=== PATIENT | female | born 1950 | race Caucasian/White ===

== ENCOUNTER → 2018-02-24 13:10 | Outpatient (CLI) | payer MEDICARE, SELFPAY ==
--- NOTE | 2018-02-24 13:25 | US_ITS ---
US chest CLINICAL INDICATION: Palpable abnormality in the right chest ITS.REASON: NEOPLASM OF CHEST WALL ORDERING PHYSICIAN: Oscar Koehler MD PATIENT AGE: 68 years Comparison: None FINDINGS: There is a heterogeneous lentiform area of mixed echogenicity corresponding to the palpable abnormality inferior to the right lower border of the scapula. This is in the subcutaneous soft tissues and measures 3 x 0.6 cm consistent with a lipoma. No other significant anomalies are evident. No abscess or other significant anomalies IMPRESSION: The findings are suggestive of a lipoma inferior to the right scapula. This could be confirmed with CT if clinically warranted
== END ==
PROVIDERS: Family Provider Family Medicine; PCP Family Medicine; Visit Provider Family Medicine
DX: D48.7 Neoplasm of uncertain behavior of other specified sites (principal)
CPT/HCPCS: 76604

== ENCOUNTER → 2018-05-12 08:48 | Outpatient (CLI) | payer MEDICARE, SELFPAY ==
--- NOTE | 2018-05-12 08:50 | MM_ITS ---
MM Dig screening mamm BI w/CAD CAD Screening COMPARISON: None, patient had previous mammograms but does not know where they were performed INDICATION: There is no personal or family history of breast cancer TECHNIQUE: Standard CC and MLO images were obtained. R2 CAD reviewed. FINDINGS: There is a diffusely dense and heterogenic parenchymal pattern lessening the sensitivity of mammography. There are areas of increased density in the central portions of both breast best appreciated on the MLO projections. These likely are summation shadows however since are no previous studies for comparison recommend patient return for spot compression views of the central portions of each breast in both MLO and CC projection. Ultrasound may be necessary as well. There are few benign-appearing calcifications in the right breast. There are no suspicious microcalcifications. IMPRESSION: Dense and heterogenic parenchymal pattern with possible asymmetric densities versus summation shadows in each breast BI-RADS Category: 0 Need Additional Imaging Evaluation RECOMMENDED FOLLOW-UP: IMM - IMMEDIATE FOLLOW-UP RECOMMENDED (A letter has been sent to the patient regarding results of the study.)
== END ==
PROVIDERS: PCP Family Medicine; Visit Provider Family Medicine
DX: Z12.31 Encounter for screening mammogram for malignant neoplasm of breast (principal)
CPT/HCPCS: 77067

== ENCOUNTER → 2018-05-27 11:53 | Outpatient (CLI) | payer MEDICARE, SELFPAY ==
--- NOTE | 2018-05-27 | US_ITS ---
MM Dig mamm BI DX w/CAD, US breast RT complete, US breast LT complete INDICATION: Follow-up abnormal mammogram ORDERING PHYSICIAN: Oscar Koehler MD PATIENT AGE: 68 years COMPARISON: 05/12/2018 TECHNIQUE: Problem-solving views along with bilateral breast ultrasound FINDINGS: There is very dense fibroglandular tissue which decreases sensitivity of mammography. Scattered areas of asymmetric density are noted in both breasts. No malignant appearing mass or malignant appearing microcalcification is evident. Right breast ultrasound: There is 5 mm cyst on the nipple. Echodense fibroglandular tissue noted in the remaining breast. Left breast ultrasound: Echodense tissue noted with no cystic or solid lesions demonstrated IMPRESSION: No convincing evidence of malignancy. Diffuse bilateral dense asymmetric fibroglandular tissue present which could obscure underlying lesions. Therefore, correlation with physical exam is extremely important. Also suggest 6 month follow-up to confirm baseline BI-RADS Category: 3 Probably Benign Finding Short Term Follow-up RECOMMENDED FOLLOW-UP: 6M - 6 MONTH FOLLOW-UP (A letter has been sent to the patient regarding results of the study.)
== END ==
PROVIDERS: PCP Family Medicine; Visit Provider Family Medicine
DX: R92.8 Other abnormal and inconclusive findings on diagnostic imaging of breast (principal)
CPT/HCPCS: 76641; 77066

== ENCOUNTER → 2018-12-02 12:27 | Outpatient (CLI) | payer MEDICARE, SELFPAY ==
--- NOTE | 2018-12-02 13:00 | MM_ITS ---
MM Dig mamm BI DX w/CAD, US breast RT complete, US breast LT complete INDICATION: 6 month follow-up abnormal mammogram an ultrasound ORDERING PHYSICIAN: Oscar Koehler MD PATIENT AGE: 68 years COMPARISON: 05/27/2018, 05/12/2018 TECHNIQUE: Standard images performed along with spot compression views and bilateral breast ultrasound. FINDINGS: There is extremely dense breast tissue bilaterally which decreases sensitivity of mammography. Correlation with physical exam therefore of paramount importance. Right breast: Scattered areas of asymmetric density once again noted. No malignant appearing mass or malignant appearing microcalcification. Benign-appearing 7 mm nodular opacity is present in the o'clock region. Artifact is present in the deep lateral right breast from the patient's chin not able to move out of the way. Right breast ultrasound: 6 mm cyst is present behind the nipple slightly increased in size compared to previous exam and may correspond to the nodular density noted in the 6:00 region of the right breast. This has slightly increased in size on the mammogram and ultrasound. This is a somewhat discordant finding as the ultrasound suggests this is retroareolar and the mammogram shows that this nodule is inferior to the nipple. Ultrasound-guided cyst aspiration with follow-up mammogram suggested to confirm that these nodules are concordant. Left breast: Dense fibroglandular tissue. No discrete mass or abnormal calcification. There is increased density in the axillary region. The patient was not able to move her chin out of the way according to the technologist. There is a 7 mm asymmetric density in the deep lateral aspect of the left breast which was only evident on the spot compression view. Would recommend that additional spot views be obtained of this area along with an exaggerated cc view to confirm if this is real or asymmetric tissue. Left breast ultrasound: No cystic or solid lesions evident IMPRESSION: Discordant 6 mm nodule involving the right breast with a cyst present in the retroareolar region but appears to be at 6:00 on the mammogram. Recommend ultrasound guided cyst aspiration with mammogram to follow to see if this nodule is concordant on ultrasound and mammogram. Would also recommend focal spot views of the lateral aspect of the left breast at that time on the cc view along with rolled cc views BI-RADS Category: 4 Suspicious Abnormality-Biopsy Considered RECOMMENDED FOLLOW-UP: BIO - BIOPSY RECOMMENDED (A letter has been sent to the patient regarding results of the study.)
== END ==
PROVIDERS: PCP Family Medicine; Visit Provider Family Medicine
DX: N60.12 Diffuse cystic mastopathy of left breast (principal); N60.11 Diffuse cystic mastopathy of right breast
CPT/HCPCS: 76641; 77066

== ENCOUNTER → 2018-12-16 12:15 | Outpatient (CLI) | payer MEDICARE, SELFPAY ==
--- NOTE | 2018-12-16 12:51 | MM_ITS ---
MM Dig mamm BI DX w/CAD INDICATION: Follow-up cyst aspiration and prior mammogram of 12/02/2018 ORDERING PHYSICIAN: Oscar Koehler MD PATIENT AGE: 68 years COMPARISON: 12/02/2018, 05/12/2018 TECHNIQUE: Standard images of the right breast postbiopsy and problem-solving images of the left breast FINDINGS: Right breast: There is dense fibroglandular tissue. Previously noted 7 mm opacity in the 6:00 region is no longer apparent and is consistent with a cyst which has been aspirated by ultrasound. Recommend 6 month follow-up per routine protocol. Left breast: Previous study showed patient's chin in the way in the axillary portion of left breast with asymmetric density noted laterally. PACS cc views with spot compression shows this area to be less well-defined and probably represents an area of asymmetric fibroglandular tissue having a similar appearance on 05/12/2018. IMPRESSION: Dense breast tissue, probably benign findings BI-RADS Category: 3 Probably Benign Finding Short Term Follow-up RECOMMENDED FOLLOW-UP: 6M - 6 MONTH FOLLOW-UP (A letter has been sent to the patient regarding results of the study.)
--- NOTE | 2018-12-16 13:00 | US_ITS ---
US FNA Breast HISTORY: Discordant abnormality of the right mammogram and right breast ITS.REASON: RT BREAST CYST ORDERING PHYSICIAN: Oscar Koehler MD PATIENT AGE: 68 years COMPARISON: None TECHNIQUE: Following obtaining informed consent, using aseptic technique and local anesthesia with buffered lidocaine, fine-needle aspiration was performed of the nodule of interest using sonographic guidance. 1 pass was made into the nodule with a 25-gauge needle. Less than 1 cc of turbid fluid was aspirated. Specimen was given to cytology. The patient tolerated the procedure well without evidence of immediate complications and left the ultrasound suite in stable condition. CYTOLOGY:Negative for malignant cells, apical metaplasia and bone cells consistent with fibrocystic changes IMPRESSION: Status post cyst aspiration of the right breast showing benign findings.
== END ==
PROVIDERS: PCP Family Medicine; Visit Provider Family Medicine
DX: N60.01 Solitary cyst of right breast (principal); R92.8 Other abnormal and inconclusive findings on diagnostic imaging of breast
CPT/HCPCS: 10005; 76642; 76942; 77066; 88173

== ENCOUNTER → 2019-03-18 09:30 | Outpatient (CLI) | payer MEDICARE, SELFPAY ==
--- NOTE | 2019-03-18 09:35 | XR_ITS ---
XR DEXA axial skeleton HISTORY: ITS.REASON: POST MENOPAUSAL ORDERING PHYSICIAN: Oscar Koehler MD PATIENT AGE: 69 years COMPARISON: None FINDINGS: The BMD measured at the Total Left femoral neck is 0.514 g/cm squared with a T score of -3.9. This is considered Osteoporotic according to the World Health Organization criteria. Fracture risk is High. Treatment is advised. IMPRESSION: Osteoporosis with high fracture risk. Treatment is advised. Suggest follow-up exam March 2020
== END ==
PROVIDERS: PCP Family Medicine; Visit Provider Family Medicine
DX: Z78.0 Asymptomatic menopausal state (principal)
CPT/HCPCS: 77080

== ENCOUNTER → 2019-06-22 12:05 | Outpatient (CLI) | payer MEDICARE, SELFPAY ==
--- NOTE | 2019-06-22 12:26 | US_ITS ---
PROCEDURE: MM DIG MAMM BI DX W/CAD CLINICAL INDICATION: ABNORMAL MAMM , Six-month follow-up cyst aspiration the COMPARISON: [facility] MM Dig screening mamm BI w/CAD from 05/12/2018 [facility] MM Dig mamm BI DX w/CAD from 05/27/2018 [facility] MM Dig mamm BI DX w/CAD from 12/02/2018 BREASTLT US breast LT complete from 12/02/2018 BREASTRT US breast RT complete from 12/02/2018 FNABRE US FNA Breast from 12/16/2018 DIG MAMM-DX YOGESH from 12/16/2018 US BREAST LT COMPLETE from 06/22/2019 US BREAST RT COMPLETE from 06/22/2019 TECHNIQUE: Standard CC and MLO images were obtained. R2 CAD reviewed. FINDINGS: The patient could not hold her breath or stop moving causing difficulty with positioning and motion artifact. There is very dense fibroglandular tissue decreasing the sensitivity of mammography. Scattered areas of asymmetric density are once again noted overall not significantly changed. Benign-appearing calcifications are present. There is a well-circumscribed nodule in the deep upper right breast consistent with a lymph node not significantly changed. On the left there is an oval area of increased density in the retroareolar region centrally of the left breast probably due to overlapping fibroglandular tissue. No sonographic abnormality evident at this region. WOULD SUGGEST THE PATIENT RETURN FOR SPOT COMPRESSION VIEW OF THIS AREA AT NO ADDITIONAL CHARGE AND AN ADDENDUM BE GIVEN AT THAT TIME. Right breast ultrasound: No cystic or solid lesions demonstrated. Previously noted cystic area in the retroareolar region is no longer apparent. Left breast ultrasound: No cystic or solid lesions evident. Specifically, no lesion demonstrated that would correspond to the asymmetric density IMPRESSION: BI-RAD Category: 3 Probably Benign Finding Short Term Follow-up FOLLOW-UP: IMM Immediate Follow-up Recommended There is an area of asymmetric density on the MLO view for which spot compression views suggested with the patient returning at her convenience at no additional charge with an addendum to follow once that is performed. No other significant anomalies evident. (A letter has been sent to the patient regarding results of the study.) Dictated by: Oskar Hamilton MD 06/28/2019 10:11 Electronically signed by Oskar Hamilton MD in [place] 06/28/2019 10:11
== END ==
PROVIDERS: PCP Family Medicine; Visit Provider Family Medicine
DX: R92.8 Other abnormal and inconclusive findings on diagnostic imaging of breast (principal)
CPT/HCPCS: 76641; 77066

== ENCOUNTER → 2019-07-01 13:04 | Outpatient (CLI) | payer MEDICARE, SELFPAY | PROVIDERS: PCP Family Medicine; Visit Provider Nurse Practitioner Family | DX: R92.8 Other abnormal and inconclusive findings on diagnostic imaging of breast (principal) ==

== ENCOUNTER 2019-10-17 23:15 | Observation (INO) ==
[2019-10-17 23:19] LABS: ABG Base Excess -0.5 mmol/L (-2.4-2.3); ABG HCO3 24.3 mmhg (22.0-26.0); ABG Oxygen Saturation 94 % (90-100); ABG PCO2 39.8 mmhg (35.0-45.0); ABG PO2 67.6 mmhg (80-100); ABG TCO2 25.5 mmhg (23-27); Allen's Test Y; Oxygen 2 %
--- NOTE | 2019-10-17 23:22 | Emergency Department Note ---
ED Disposition Clinical Impression: Acute exacerbation of chronic obstructive airways disease, Severe sepsis with acute organ dysfunction, Septic shock Anemia Qualifiers: Anemia type: unspecified type Qualified Code(s): D64.9 - Anemia, unspecified Disposition: Admitted As Inpatient Condition on Discharge: Serious Referrals: Phyllis Segura MD [Primary Care Provider] - - Critical Care Critical Care Time: No Attestation: On , the high probability of a clinically significant, sudden or life threatening deterioration of the following system(s) required my full and direct attention, intervention and personal management. The time I documented below is in addition to time spent performing reported procedures but includes the following listed in this critical care notation. Medical Decision Making - Medical Records Medical records reviewed: Yes: I reviewed the patient's medical records. - Sanchez Inquiry Pt receiving controlled substance: No Vital Signs: 10/17/19 23:16 10/17/19 23:30 10/17/19 23:40 Temperature 98.5 F Temperature Source Oral Pulse Rate 112 H 112 H Pulse Rate [Right Brachial] 125 H 123 H Respiratory Rate 27 H Blood Pressure [Right Arm] 128/59 L 131/91 H Blood Pressure Mean [Right Arm] 82 104 Blood Pressure Source [Right Arm] Automatic Cuff Blood Pressure Position [Right Arm] Sitting 02 Sat by Pulse Oximetry 95 98 Oxygen Delivery Method Room Air 10/18/19 00:00 10/18/19 00:29 Temperature Temperature Source Pulse Rate Pulse Rate [Right Brachial] 112 H 115 H Respiratory Rate Blood Pressure [Right Arm] 108/60 L 121/87 Blood Pressure Mean [Right Arm] 76 98 Blood Pressure Source [Right Arm] Blood Pressure Position [Right Arm] 02 Sat by Pulse Oximetry 98 98 Oxygen Delivery Method - Lab Data Lab results reviewed: Yes: I reviewed the patient's lab results. Lab Results 10/17/19 23:18: Specimen Source R/r, O2 % 2, ABG pH 7.40, ABG pCO2 39.8, ABG pO2 67.6 L, ABG HCO3 24.3, ABG Total CO2 25.5, ABG O2 Saturation 94, ABG Base Excess -0.5, Oskar Test Y 10/17/19 23:20: WBC 11.6 H, RBC 3.33 L, Hgb 9.7 L, Hct 30.1 L, MCV 90.6, MCH 29.2, MCHC 32.2, RDW 13.3, Plt Count 204, MPV 7.9, Neut % (Auto) 84.7 H, Lymph % (Auto) 6.4 L, [place] % (Auto) 8.0, Eos % (Auto) 0.6, Baso % (Auto) 0.3, Neut # (Auto) 9.8 H, Lymph # (Auto) 0.7, [place] # (Auto) 0.9, Eos # (Auto) 0.1, Baso # (Auto) 0.0 10/17/19 23:20: Sodium 135 L, Potassium 3.2 L, Chloride 95 L, Carbon Dioxide 28, Anion Gap 15.2 H, BUN 9, Creatinine 0.60, Estimated Creat Clear 38, Estimated GFR 99, Est GFR ( Amer) 120, Glucose 225 H, Calcium 8.5, Total Bilirubin 0.5, AST 26, ALT 22, Alkaline Phosphatase 78, Troponin I < 0.01, Total Protein 6.9, Albumin 3.8, Globulin 3.1, Albumin/Globulin Ratio 1.2 10/17/19 23:20: NT-Pro-B Natriuret Pep 271 H 10/17/19 23:20: Lactate 4.4 H Result diagrams: 10/17/19 23:20 10/17/19 23:20 Orders (Tests/Meds): ED MEDICATIONS Generic Name Dose Route Start Last Admin Trade Name Howie PRN Reason Stop Dose Admin Azithromycin 500 mg/ Sodium 250 mls @ 250 mls/hr 10/17/19 23:45 10/17/19 23:57 Chloride IV 10/31/19 23:44 250 mls/hr Q24H ARELI Administration Protocol Ceftriaxone Sodium 1 gm/ 50 mls @ 100 mls/hr 10/17/19 23:45 10/17/19 23:21 Sodium Chloride IV 10/31/19 23:44 100 mls/hr Q24H ARELI Administration Protocol Sodium Chloride 1,350 mls @ 675 mls/hr 10/18/19 00:17 10/18/19 00:19 Sod Chlor 0.9% 1000ml Bag 30 ml/kg infuse over 2 hr (1350 ml) 10/18/19 02:16 675 mls/hr IV Administration .Q2H ONE ORDERS Category Date Time Status XR chest 2V Stat Exams 10/17/19 23:19 Taken Rapid Influenza A&B Antigens Stat Lab 10/17/19 23:19 Ordered Troponin I Q3H Lab 10/18/19 02:30 Ordered Troponin I Q3H Lab 10/18/19 05:30 Ordered Blood Culture Stat Micro 10/17/19 23:28 Received - Radiology Data #1 Image(s): Chest Image Reviewed: Yes I reviewed the patient's radiology image Preliminary Findings: Abnormal (copd) - ECG Data Tracing #1 Arrhythmias present: sinus tach Ischemic changes: non-specific ST-T wave changes - Physician Consults Physician Consulted: joann Reason -: Admission - Tissue Perfus/Sepsis Re-Eval Sepsis Re-Evaluation Performed: Yes Date Performed: 10/17/19 Time Performed: 23:45 - [place] Score for Non-Stemi Age of Patient: 60-69 years old Heart Rate: 110-149 bpm Systolic Blood Pressure: 120-139 mmhg Serum Creatinine: 0.40-0.79 mg/dl CHF [place] Class: I-No CHF Other Risk Factors: None Non-Stemi Risk Score: 120 Resp/SOB HPI - General Chief Complaint: Shortness of Breath/Dyspnea Stated Complaint: soa Time Seen by Provider: 10/17/19 23:20 Mode of Arrival: EMS Source of Information: Patient, Medical Record Limitations: No Limitations Description of Symptoms (Recalled from ER Triage Doc. by RN): soa for the last week with incr difficulty despite breathing treatments and inhalers; recently quit smoking (5 months ago) after having smoked for 40+ years. - History of Present Illness pt with prod cough green sputum over the last day with o2 dep copd - no chest pain - MD Complaint: shortness of breath, cough Onset (ago): day(s) Severity: moderate Known history of: COPD Associated symptoms: cough Treatment prior to arrival: bronchodilator - Related Data Home oxygen amount: 2 liters Home Medications Medication Instructions Recorded Confirmed Tiotropium [place] [Spiriva 1 puff INHALATION DAILY 04/08/18 04/08/18 18mcg/puff inhaler] Trazodone HCl 100 mg PO DAILY 04/08/18 04/08/18 Venlafaxine HCl [Venlafaxine HCl 150 mg PO DAILY 04/08/18 04/08/18 ER] risperiDONE [Risperdal 1mg Tablet] 1 mg PO DAILY 04/08/18 04/08/18 Budesonide/Formoterol Fumarate 1 applicatio IH DAILY 10/17/19 10/17/19 [Symbicort 160-4.5 Mcg Inhaler] Roflumilast [Daliresp] 1 tab PO DAILY 10/17/19 10/17/19 Varenicline Tartrate [Chantix 1mg 1 tab PO DIRECTED 10/17/19 10/17/19 tablet] Allergies Allergy/AdvReac Type Severity Reaction Status Date / Time No Known Allergies Allergy Verified 04/08/18 14:42 - Well's Criteria PE Score Clinical signs/symptoms of DVT: No PE is #1 diagnosis or equally likely: No Heart rate is > 100: Yes Immobile at least 3 days, or surgery in past 4 wks: No Previously, obj. diagnosed PE or DVT: No Hemoptysis: No Malignancy w/Rx within 6mo, or palliative: No PE Score: 1 [facility] History - Hepatitis A Screen Drug use history?: No High risk sexual behaviors?: No History of sexually transmitted infection?: No Currently employed?: No Childcare worker?: No Do you have indoor plumbing?: Yes Do you have electricity?: Yes Attestation statement:: This patient has been screened for Hepatitis A risk factors. I have reviewed the patient's past medical history: Yes Medical History: Denies:: Diabetes Mellitus Type 1, Diabetes Mellitus Type 2 - Social History Smoking Status: Current every day smoker Alcohol Intake: never ROS Obtained: Yes All systems reviewed & no additional complaints - Constitutional Constitutional: Denies fever(s), Reports weakness - Eyes Eyes: Denies change in vision - ENT Ears, Nose, Mouth, and Throat: Denies sore throat - Cardiovascular Cardiovascular: Reports as per HPI, Denies chest pain, Reports dyspnea - Respiratory Respiratory: Yes as per HPI, Yes change in phlegm color, Yes cough, No coughing up blood - Gastrointestinal Gastrointestingal: Denies: abdominal pain, vomiting - Genitourinary Female Genitourinary: Denies hematuria - Musculoskeletal Musculoskeletal: Reports joint pain, Denies joint swelling - Integumentary/Breasts Skin/Breast: Denies rash - Neurologic Neurologic: Denies focal weakness, Denies seizure-like activity Physical Exam - General General appearance: alert - Head Head exam: normocephalic - Eye Eye exam: Present: PERRL, EOMI. Absent: scleral icterus - ENT ENT exam: Present: mucous membranes dry - Neck Neck exam: Present: trachea midline - Respiratory Respiratory exam: Present: wheezes (dec bs bilat ), other. Absent: respiratory distress - Cardiovascular Cardiovascular exam: Present: regular rate, systolic murmur, +S4 - Abdominal Exam Abdominal exam: Present: soft - Extremities Exam Extremities exam: Absent: calf tenderness - Neurological Exam Neurological exam: Present: alert, oriented X3, CN II-XII intact. Absent: motor sensory deficit - Psychiatric Psychiatric exam: Present: normal affect - Skin Skin exam: Absent: rash
[2019-10-17 23:36] LABS: Basophils % 0.3 % (0.1-2.0); Eosinophils # 0.1 K/mm3 (0.0-0.4); Eosinophils % 0.6 % (0.1-12.0); Hematocrit 30.1 % (37.0-47.0); Hemoglobin 9.7 g/dL (12.2-16.2); Lymphocytes # 0.7 K/mm3 (0.7-4.5); Lymphocytes % 6.4 % (10-50); Mean Corpuscular HGB Conc 32.2 g/dL (31.8-35.4); Mean Corpuscular Volume 90.6 fl (81-99); Mean Platelet Volume 7.9 fl (7.4-10.4); Monocytes # 0.9 K/mm3 (0.1-1.0); Neutrophils # 9.8 K/mm3 (1.8-7.8); Neutrophils % 84.7 % (37.0-80.0); Platelet Count 204 K/mm3 (142-424); Red Blood Count 3.33 M/mm3 (4.20-5.40); Red Cell Distribution Width 13.3 % (11.5-17.5); White Blood Count 11.6 K/mm3 (4.8-10.8)
[2019-10-17 23:47] LABS: Alanine Aminotransferase 22 U/L (12-78); Albumin Level 3.8 g/dl (3.5-5.0); Albumin/Globulin Ratio 1.2 (1.1-1.8); Alkaline Phosphatase 78 U/L (38-126); Anion Gap 15.2 mEq/L (5-15); Aspartate Amino Transferase 26 U/L (14-36); Bilirubin,Total 0.5 mg/dl (0.2-1.3); Blood Urea Nitrogen 9 mg/dl (7-17); Calcium 8.5 mg/dl (8.4-10.2); Carbon Dioxide 28 mmol/L (22.0-30.0); Chloride 95 mmol/L (98-107); Globulin 3.1 g/dL (1.3-3.2); Glucose 225 mg/dl (74-100); Sodium 135 mmol/L (136-145); Total Protein,Serum 6.9 g/dl (6.3-8.2)
[2019-10-18 05:45] LABS: Eosinophils % 0.3 % (0.1-12.0); Hemoglobin 9.1 g/dL (12.2-16.2); Lymphocytes # 0.3 K/mm3 (0.7-4.5); Lymphocytes % 3.2 % (10-50); Mean Corpuscular HGB Conc 32.3 g/dL (31.8-35.4); Monocytes # 0.2 K/mm3 (0.1-1.0); Monocytes % 2.2 % (1.7-9.3); Neutrophils # 9.6 K/mm3 (1.8-7.8); Neutrophils % 94.3 % (37.0-80.0); Platelet Count 170 K/mm3 (142-424); Red Cell Distribution Width 13.2 % (11.5-17.5); White Blood Count 10.1 K/mm3 (4.8-10.8)
[2019-10-18 05:51] LABS: Hematocrit 28.2 % (37.0-47.0)
[2019-10-18 05:52] LABS: Chloride 103 mmol/L (98-107); Sodium 138 mmol/L (136-145)
[2019-10-18 05:55] LABS: Anion Gap 13.8 mEq/L (5-15); Blood Urea Nitrogen 6 mg/dl (7-17); Calcium 7.9 mg/dl (8.4-10.2); Carbon Dioxide 25 mmol/L (22.0-30.0); Glucose 204 mg/dl (74-100)
--- NOTE | 2019-10-18 07:37 | Pharmacy Consult Notes ---
[facility] Pharmacy VTE Monitoring - Patient Demographics Admission date: 10/18/19 Report Date: 10/18/19 Time: 07:37 Allergies/Adverse Reactions: Patient Allergies No Known Allergies Allergy (Verified 04/08/18 14:42) Height: 1.52 m Weight: 49.215 kg Patient Problems: Current Active Problems Acute exacerbation of chronic obstructive airways disease (Acute) Severe sepsis with acute organ dysfunction (Acute) Septic shock (Acute) Anemia (Acute) - VTE Risk Labs: VTE Related Lab Results Hgb 9.1 g/dL (12.2-16.2) L 10/18/19 05:25 Hct 28.2 % (37.0-47.0) L 10/18/19 05:25 Plt Count 170 K/mm3 (142-424) 10/18/19 05:25 BUN 6 mg/dl (7-17) L D 10/18/19 05:25 Creatinine 0.40 mg/dl (0.52-1.04) L D 10/18/19 05:25 Estimated Creat Clear 42 mL/min (50-200) 10/18/19 05:25 VTE Score: 4 VTE Risk Level: Low Risk - Prophylaxis VTE Prophylaxis Ordered?: Yes Types of VTE Prophylaxis: TEDS Knee High Location of Applied Device: Bilateral Lower Extremeties
--- NOTE | 2019-10-18 08:49 | History & Physical Report ---
*Admission Date: 10/18/19 <Lola Ulloa - 10/18/19 09:01> *Chief complaint: Shortness of breath <Lola Ulloa 10/18/19 09:01> *History of present illness: Ms. Gonzales is a 69-year-old female with a history of chronic obstructive pulmonary disease, pulmonary fibrosis, O2 dependence, depression and anxiety, and previous tobacco addiction who presented to the emergency room after being short of breath for about a week. She states this progressively worsened at 1 time O2 sats were in the 70s. She is describes productive cough of green sputum but denies fever. She feels she has been eating and drinking as usual. She wears her oxygen at all times at home. She is also been using her neb treatments. With evaluation in the emergency room White blood cell count was elevated at 11,600 with a hemoglobin of 9.7 hematocrit of 30.1 ABGs revealed a pH of 7.4 PCO2 of 39.8 PO2 of 67.6 and a bicarb of 24.3; blood chemistries revealed a low potassium at 3.2 and is normal today at 3.8. Lactic acid was elevated at 4.4 and 4.5. Troponin I's were normal. In the emergency room patient was started on Rocephin and Zithromax. She also received IV fluid bolus.She was then admitted for further evaluation and treatment . This a.m. patient does not feel she is any better. She was awake throughout the night. <Lola Ulloa 10/18/19 09:01> [facility] History Medical History: Reports:: Chronic Obstructive Pulmonary Disease (COPD), Depression, Home Oxygen, Lung Disease (Pulmonary fibrosis) Denies:: Diabetes Mellitus Type 1, Diabetes Mellitus Type 2 <Lola Ulloa 10/18/19 09:01> *Have you ever received a pneumonia vaccine?: Yes <Lola Ulloa 10/18/19 09:01> *Have you received a flu vaccine this season?: Yes <Lola Ulloa 10/18/19 09:01> Other Medical History: Reports: Cataracts <Lola Ulloa 10/18/19 09:01> Laterality Cases: Bilateral: Cataract <Lola Ulloa 10/18/19 09:01> - *Social History Educational Level: Attended High School <Lola Ulloa Claudia 10/18/19 09:01> Smoking Status: Former smoker <Lola Ulloa Claudia 10/18/19 09:01> Tobacco Type: cigarettes <Lola Ulloa 10/18/19 09:01> # Packs/Day (cigarettes): 1 <Lola Ulloa Claudia 10/18/19 09:01> Alcohol Intake: never <ArtemioLola 10/18/19 09:01> *Occupational Status:: retired <UlloaLola 10/18/19 09:01> *Travel in the last 8 weeks: None <UlloaLola 10/18/19 09:01> Family Hx:: Cancer, Diabetes <UlloaLola 10/18/19 09:01> Review of Systems - Constitutional Reports weakness, Denies chills, Denies headache(s) <Ulloa,Lola 10/18/19 09:01> - Eyes Denies change in vision <Ulloa,Lola 10/18/19 09:01> - ENT Reports nasal discharge, Reports post nasal drip, Denies dizziness, Denies ear pain, Denies headache(s), Denies nasal congestion <UlloaLola 10/18/19 09:01> - *Cardiovascular Denies chest pain <UlloaLola 10/18/19 09:01> - *Respiratory Reports change in phlegm color, Reports chest congestion, Reports cough, Reports shortness of breath, Denies coughing up blood <UlloaLola 10/18/19 09:01> - *Gastrointestinal Denies abdominal pain, Denies constipation, Denies heartburn, Denies heartburn, Denies loose stools, Denies nausea, Denies vomiting <UlloaLola 10/18/19 09:01> - *Genitourinary Denies difficulty urinating <UlloaLola 10/18/19 09:01> - *Musculoskeletal Denies abnormal walking <UlloaLola 10/18/19 09:01> - *Neurologic Reports weakness, Denies localized weakness, Denies seizure-like activity <ArtemioLola 10/18/19 09:01> Meds Home Medications Medication Instructions Recorded Confirmed Type Tiotropium [place] [Spiriva 18 mg INHALATION DAILY 04/08/18 10/18/19 History 18mcg/puff inhaler] Venlafaxine HCl [Venlafaxine HCl 150 mg PO DAILY 04/08/18 10/18/19 History ER] risperiDONE [Risperdal 1mg Tablet] 1 mg PO BID 04/08/18 10/18/19 History Budesonide/Formoterol Fumarate 2 puffs IH BID 10/17/19 10/18/19 History [Symbicort 160-4.5 Mcg Inhaler] Roflumilast [Daliresp] 500 mcg PO DAILY 10/17/19 10/18/19 History Varenicline Tartrate [Chantix 1mg 1 mg PO BID 10/17/19 10/18/19 History tablet] Albuterol Sulfate [Albuterol HFA 2 puff IH QIDP PRN 10/18/19 10/18/19 History Inhaler] Ipratropium/Albuterol Sulfate 0.5 mg IH QIDP PRN 10/18/19 10/18/19 History [Iprat-Albut 0.5-3(2.5) mg/3 ml] Risedronate Sodium 150 mg PO MONTHLY 10/18/19 10/18/19 History Trazodone HCl 150 mg PO DAILY 10/18/19 10/18/19 History <Oscar Koehler - 10/18/19 12:13> Allergies Allergy/AdvReac Type Severity Reaction Status Date / Time No Known Allergies Allergy Verified 04/08/18 14:42 <Oscar Koehler - 10/18/19 12:13> Exam Vital signs and Labs for Last 24 Hours: Temp Pulse Resp BP Pulse Ox 98.0 F 107 H 28 H 115/63 99 10/18/19 08:00 10/18/19 08:00 10/18/19 08:00 10/18/19 08:00 10/18/19 08:00 Laboratory Results - last 24 hr 10/17/19 23:18: Specimen Source R/r, O2 % 2, ABG pH 7.40, ABG pCO2 39.8, ABG pO2 67.6 L, ABG HCO3 24.3, ABG Total CO2 25.5, ABG O2 Saturation 94, ABG Base Excess -0.5, Oskar Test Y 10/17/19 23:20: WBC 11.6 H, RBC 3.33 L, Hgb 9.7 L, Hct 30.1 L, MCV 90.6, MCH 29.2, MCHC 32.2, RDW 13.3, Plt Count 204, MPV 7.9, Neut % (Auto) 84.7 H, Lymph % (Auto) 6.4 L, [place] % (Auto) 8.0, Eos % (Auto) 0.6, Baso % (Auto) 0.3, Neut # (Auto) 9.8 H, Lymph # (Auto) 0.7, [place] # (Auto) 0.9, Eos # (Auto) 0.1, Baso # (Auto) 0.0 10/17/19 23:20: Sodium 135 L, Potassium 3.2 L, Chloride 95 L, Carbon Dioxide 28, Anion Gap 15.2 H, BUN 9, Creatinine 0.60, Estimated Creat Clear 38, Estimated GFR 99, Est GFR ( Amer) 120, Glucose 225 H, Calcium 8.5, Total Bilirubin 0.5, AST 26, ALT 22, Alkaline Phosphatase 78, Troponin I < 0.01, Total Protein 6.9, Albumin 3.8, Globulin 3.1, Albumin/Globulin Ratio 1.2 10/17/19 23:20: NT-Pro-B Natriuret Pep 271 H 10/17/19 23:20: Lactate 4.4 H 10/18/19 02:45: Troponin I < 0.01 10/18/19 02:45: Lactate 4.5 H 10/18/19 05:25: WBC 10.1, RBC 3.10 L, Hgb 9.1 L, Hct 28.2 L, MCV 91.0, MCH 29.4, MCHC 32.3, RDW 13.2, Plt Count 170, MPV 8.0, Neut % (Auto) 94.3 H, Lymph % (Auto) 3.2 L, [place] % (Auto) 2.2, Eos % (Auto) 0.3, Baso % (Auto) 0.0 L, Neut # (Auto) 9.6 H, Lymph # (Auto) 0.3 L, [place] # (Auto) 0.2, Eos # (Auto) 0.0, Baso # (Auto) 0.0, Total Counted 100, Neutrophils % (Manual) 92 H, Lymphocytes % (Manual) 6 L, Monocytes % (Manual) 2, Platelet Estimate Slight decrease, Poikilocytosis 1+, Acanthocytes (Spur) 1+ 10/18/19 05:25: Sodium 138, Potassium 3.8, Chloride 103, Carbon Dioxide 25, Anion Gap 13.8, BUN 6 L D, Creatinine 0.40 L D, Estimated Creat Clear 42, Estimated GFR 159, Est GFR ( Amer) 192 D, Glucose 204 H, Calcium 7.9 L, Magnesium 2.0, Troponin I < 0.01 10/18/19 05:25: Lactate 3.6 H <Oscar Koehler - 10/18/19 12:13> Temp Pulse Resp BP Pulse Ox 98.2 F 104 H 27 H 133/78 92 L 10/18/19 02:04 10/18/19 06:13 10/18/19 02:04 10/18/19 04:00 10/18/19 06:13 Laboratory Results - last 24 hr 10/17/19 23:18: Specimen Source R/r, O2 % 2, ABG pH 7.40, ABG pCO2 39.8, ABG pO2 67.6 L, ABG HCO3 24.3, ABG Total CO2 25.5, ABG O2 Saturation 94, ABG Base Excess -0.5, Oskar Test Y 10/17/19 23:20: WBC 11.6 H, RBC 3.33 L, Hgb 9.7 L, Hct 30.1 L, MCV 90.6, MCH 29.2, MCHC 32.2, RDW 13.3, Plt Count 204, MPV 7.9, Neut % (Auto) 84.7 H, Lymph % (Auto) 6.4 L, [place] % (Auto) 8.0, Eos % (Auto) 0.6, Baso % (Auto) 0.3, Neut # (Auto) 9.8 H, Lymph # (Auto) 0.7, [place] # (Auto) 0.9, Eos # (Auto) 0.1, Baso # (Auto) 0.0 10/17/19 23:20: Sodium 135 L, Potassium 3.2 L, Chloride 95 L, Carbon Dioxide 28, Anion Gap 15.2 H, BUN 9, Creatinine 0.60, Estimated Creat Clear 38, Estimated GFR 99, Est GFR ( Amer) 120, Glucose 225 H, Calcium 8.5, Total Bilirubin 0.5, AST 26, ALT 22, Alkaline Phosphatase 78, Troponin I < 0.01, Total Protein 6.9, Albumin 3.8, Globulin 3.1, Albumin/Globulin Ratio 1.2 10/17/19 23:20: NT-Pro-B Natriuret Pep 271 H 10/17/19 23:20: Lactate 4.4 H 10/18/19 02:45: Troponin I < 0.01 10/18/19 02:45: Lactate 4.5 H 10/18/19 05:25: WBC 10.1, RBC 3.10 L, Hgb 9.1 L, Hct 28.2 L, MCV 91.0, MCH 29.4, MCHC 32.3, RDW 13.2, Plt Count 170, MPV 8.0, Neut % (Auto) 94.3 H, Lymph % (Auto) 3.2 L, [place] % (Auto) 2.2, Eos % (Auto) 0.3, Baso % (Auto) 0.0 L, Neut # (Auto) 9.6 H, Lymph # (Auto) 0.3 L, [place] # (Auto) 0.2, Eos # (Auto) 0.0, Baso # (Auto) 0.0 10/18/19 05:25: Sodium 138, Potassium 3.8, Chloride 103, Carbon Dioxide 25, Ani on Gap 13.8, BUN 6 L D, Creatinine 0.40 L D, Estimated Creat Clear 42, Estimated GFR 159, Est GFR ( Amer) 192 D, Glucose 204 H, Calcium 7.9 L, Magnesium 2.0, Troponin I < 0.01 10/18/19 05:25: Lactate 3.6 H <Lola Ulloa - 10/18/19 09:01> I & O for Last 24 hours: Intake & Output 10/16/19 10/17/19 10/18/19 10/19/19 11:59 11:59 11:59 11:59 Intake Total 2082 Balance 2082 Weight 108 lb 8 oz <Oscar Koehler - 10/18/19 12:13> Intake & Output 10/15/19 10/16/19 10/17/19 10/18/19 11:59 11:59 11:59 11:59 Intake Total 1843 / 1843 Balance 184 1843 Weight 108 lb 8 oz <Lola Ulloa - 10/18/19 09:01> Microbiology Reports for the Last 24 Hours: Microbiology 10/18/19 04:55 Sputum - Expectorated Sputum Gram Stain - Final <RodoOscar Hebert - 10/18/19 12:13> Microbiology 10/18/19 04:55 Sputum - Expectorated Sputum Gram Stain - Final <Lola Ulloa - 10/18/19 09:01> - Constitutional no acute distress <UlloaLola 10/18/19 09:01> - *Routine HEENT Exam Head: Present: normocephalic, atraumatic <UlloaLola 10/18/19 09:01> Eye: Present: PERRL. Absent: conjunctival icterus, scleral injection <UlloaLoal 10/18/19 09:01> ENT: Present: mucous membranes moist, oropharynx clear <Lola Ulloa 10/18/19 09:01> - *Routine Neck Exam Present: supple. Absent: carotid bruit, lymphadenopathy, thyromegaly <Airam julianaLola 10/18/19 09:01> - *Routine Respiratory Exam Comments: Audible crackles in the right base. <UlloaLola 10/18/19 09:01> - *Routine Cardiovascular Exam Present: RRR <UlloaLola 10/18/19 09:01> - *Routine Abdominal Exam Present: soft, normoactive bowel sounds. Absent: tenderness, distended <UlloaLola 10/18/19 09:01> - *Routine Extremities Exam Absent: edema, calf tenderness <UlloaLola 10/18/19 09:01> - *Routine Neurological Exam Present: alert, oriented X3 <UlloaLola 10/18/19 09:01> Assessment and Plan (1) Acute exacerbation of chronic obstructive airways disease Current visit: Yes Status: Acute Category: Medical Code(s): J44.1 - Chronic obstructive pulmonary disease with (acute) exacerbation (2) Anemia Current visit: Yes Status: Acute Qualifiers: Anemia type: unspecified type Qualified Code(s): D64.9 - Anemia, unspecified Category: Medical Code(s): D64.9 - Anemia, unspecified <Oscar Koehler - 10/18/19 12:13> (1) Acute exacerbation of chronic obstructive airways disease Current visit: Yes Status: Acute Category: Medical Code(s): J44.1 - Chronic obstructive pulmonary disease with (acute) exacerbation (2) Anemia Current visit: Yes Status: Acute Qualifiers: Anemia type: unspecified type Qualified Code(s): D64.9 - Anemia, unspecified Category: Medical Code(s): D64.9 - Anemia, unspecified <Lola Ulloa - 10/18/19 08:45> - Assessment and plan all Dx Assessment and Plan for all problems:: Patient seen and examined this morning. She is already feeling better and asked about going home. She did trigger for severe sepsis but clinically does not appear septic. We will plan to repeat her chest x-ray after being hydrated to see if there is any occult pneumonia. Otherwise continue current treatment. <Oscar Koehler - 10/18/19 12:13> We will continue with antibiotics, steroids and duo nebs. She has been hydrated and we will repeat chest x-ray today. <Lola Ulloa - 10/18/19 09:01>
[2019-10-18 09:51] LABS: Lymphocytes % 6 % (10-50); Monocytes % 2 % (2-9); Neutrophils % 92 % (42-76); Total Cells Counted 100
--- NOTE | 2019-10-18 11:49 | Electrocardiograph Report ---
APPROVED REPORT Exam: Resting ECG HR:127 bpm ECG Measurements Heart Rate 127 AXES UT 134 P 62 QRSd 66 QRS 80 QT 294 T52 QTc 427 <Conclusion> Sinus tachycardia Nonspecific ST and T wave abnormality-Consider inferolateral Ischemia Abnormal ECG Electronically signed by : Jeromy Pena, 10/18/2019 11:49:08
--- NOTE | 2019-10-19 08:28 | Progress Note ---
<Lola Ulloa - Last Filed: 10/19/19 08:25> Internal Medicine - PN: Subj *Date: 10/19/19 *Time: 08:25 Interval history: Nurses report sinus tachycardia up to 130 whenever patient is out of bed and with neb treatments. Chest x-ray yesterday showed chronic changes. Sputum culture results are pending States she did sleep last night. Patient recognizes palpitations. She states that she has been having these for about a year. She denies chest pain. Shortness of breath is about the same. Bowels have moved and she is voiding QS. She is eating as usual without problems. Exam Vital signs and Labs for Last 24 Hours: Temp Pulse Resp BP Pulse Ox 98.0 F 87 20 140/68 92 L 10/19/19 04:00 10/19/19 05:48 10/19/19 04:00 10/19/19 04:00 10/19/19 05:48 Laboratory Results - last 24 hr 10/18/19 05:25: Total Counted 100, Neutrophils % (Manual) 92 H, Lymphocytes % (Manual) 6 L, Monocytes % (Manual) 2, Platelet Estimate Slight decrease, Poikilocytosis 1+, Acanthocytes (Spur) 1+ I & O for Last 24 hours: Intake & Output 10/16/19 10/17/19 10/18/19 10/19/19 11:59 11:59 11:59 11:59 Intake Total 2083 / 2083 2055 / 205 Output Total 200 / 200 800 / 800 Balance 1883 / 1883 1256 / 1256 Weight 108 lb 8 oz 108 lb 7.832 oz Microbiology Reports for the Last 24 Hours: Microbiology 10/18/19 04:55 Sputum - Expectorated Sputum Gram Stain - Final 10/18/19 04:55 Sputum - Expectorated Sputum Sputum Culture - Preliminary Radiology Reports for the Last 24 Hours: Chest x-ray 10/18/2019 IMPRESSION: COPD with chronic changes - Constitutional no acute distress, thin Comments: Sitting up in comfort chair at bedside eating her breakfast. Dyspneic with some conversation. - *Routine Respiratory Exam Present: decreased breath sounds, diminished air movement - *Routine Cardiovascular Exam Present: RRR Comments: Monitor showing sinus tachycardia at 113 - *Routine Abdominal Exam Present: soft, normoactive bowel sounds. Absent: tenderness - *Routine Extremities Exam Present: calf tenderness, MAKENZIE stockings. Absent: edema - *Routine Neurological Exam Present: alert, oriented X3 Assessment and Plan (1) Acute exacerbation of chronic obstructive airways disease Current visit: Yes Status: Acute Category: Medical Code(s): J44.1 - Chronic obstructive pulmonary disease with (acute) exacerbation (2) Anemia Current visit: Yes Status: Acute Qualifiers: Anemia type: unspecified type Qualified Code(s): D64.9 - Anemia, unspecified Category: Medical Code(s): D64.9 - Anemia, unspecified (3) Sinus tachycardia Current visit: Yes Status: Acute Category: Medical Code(s): R00.0 - Tachycardia, unspecified - Assessment and plan all Dx Assessment and Plan for all problems:: We will obtain echocardiogram today. Will change duo nebs to Xopenex nebs. Continue with IV antibiotics. <Oscar Koehler - Last Filed: 10/19/19 18:28> Internal Medicine - PN: Subj *Date: 10/19/19 *Time: 18:25 Exam Vital signs and Labs for Last 24 Hours: Temp Pulse Resp BP Pulse Ox 98.4 F 109 H 18 127/68 92 L 10/19/19 16:00 10/19/19 16:00 10/19/19 16:00 10/19/19 16:00 10/19/19 16:26 I & O for Last 24 hours: Intake & Output 10/17/19 10/18/19 10/19/19 10/20/19 11:59 11:59 11:59 11:59 Intake Total 2083 / 2083 2536 / 2536 1350 / 1350 Output Total 200 / 200 800 / 800 Balance 1883 / 1883 1736 / 1736 1350 / 1350 Weight 108 lb 8 oz 108 lb 7.832 oz Microbiology Reports for the Last 24 Hours: Microbiology 10/18/19 04:55 Sputum - Expectorated Sputum Gram Stain - Final 10/18/19 04:55 Sputum - Expectorated Sputum Sputum Culture - Preliminary Assessment and Plan (1) Acute exacerbation of chronic obstructive airways disease Current visit: Yes Status: Acute Category: Medical Code(s): J44.1 - Chronic obstructive pulmonary disease with (acute) exacerbation (2) Anemia Current visit: Yes Status: Acute Qualifiers: Anemia type: unspecified type Qualified Code(s): D64.9 - Anemia, unspecified Category: Medical Code(s): D64.9 - Anemia, unspecified (3) Sinus tachycardia Current visit: Yes Status: Acute Category: Medical Code(s): R00.0 - Tachycardia, unspecified - Assessment and plan all Dx Assessment and Plan for all problems:: Patient seen and examined this morning. She appears more comfortable with her breathing but is still dyspneic with exertion and becomes tachycardic. Likely has pulmonary hypertension and will confirm with echocardiogram today. Otherwise concur with above assessment and plan.
--- NOTE | 2019-10-19 21:09 | Cardiology Report ---
APPROVED REPORT EXAM: Comprehensive 2D, Doppler, and color-flow Echocardiogram Shade Bander: Lila Lackey RDCS Ht: 4 ft 10 in Wt: 108lbs BSA: 1.40 BP: 133/78 mmHg Indications: SOA,COPD,O2 DEPENDENT,EX SMOKER M-Mode Dimensions RVDd 2.28 cm (0.9-2.6)LVDd 4.87 cm (3.5-5.7) LVDs 3.63 cm (3.5-5.7)IVSd 0.72 cm (0.6-1.1) PWd 0.66 cm (0.6-1.1)EF (Teich) 50.10% FS 25.50% EDV (Teich) 111.20 mL ESV (Teich) 55.50 mL LV Diastology E/A Ratio 5.31 Mitral Valve MV A Velocity 27.00 (40-130 cm/s) Left Ventricle Left atrium is mildly enlarged, left ventricle is normal size, mild concentric left ventricular hypertrophy, hyperdynamic left ventricular systolic function, visually estimated ejection fraction over 65% with no regional wall motion abnormality, Doppler evidence of impaired LV relaxation seen. Right Ventricle Right atrium and right ventricle moderately enlarged with normal contractility. Aortic Valve Aortic valve is minimally thickened and fibrosed, there is no aortic stenosis or aortic insufficiency. Mitral Valve Mitral valve leaflets are minimally thickened, there is mild mitral regurgitation. Tricuspid Valve Tricuspid valve is minimally thickened, there is moderate tricuspid regurgitation, calculated right ventricular systolic pressure is 60 mmHg. Pulmonic Valve Pulmonic valve is poorly visualized. Great Vessels Aortic root is normal size. Pericardium No significant pericardial effusion noted. Conclusion 1. Biatrial enlargement, normal left ventricular size, mild concentric left ventricular hypertrophy, hyperdynamic left ventricular systolic function, visually estimated ejection fraction over 65% with no regional wall motion abnormality, Doppler evidence of impaired relaxation seen. 2. Moderately enlarged right ventricle with normal contractility. 3. Mild mitral and moderate tricuspid regurgitation, calculated right ventricular systolic pressure 60 mmHg. 4. No significant pericardial effusion noted. Electronically signed by : Clyde Lester, 10/19/2019 21:09:38
--- NOTE | 2019-10-20 08:51 | Progress Note ---
<Katie Huizar - Last Filed: 10/20/19 08:48> Internal Medicine - PN: Subj *Date: 10/20/19 *Time: 08:48 Interval history: Patient states she feels better today although her heart rate has been in the 120s throughout the night. She states her shortness of breath is at baseline although her respirations are still elevated. She denies any pain and states she slept well and wants to go home today. Exam Vital signs and Labs for Last 24 Hours: Temp Pulse Resp BP Pulse Ox 97.8 F 109 H 32 H 149/71 H 95 10/20/19 04:00 10/20/19 05:52 10/20/19 04:00 10/20/19 04:00 10/20/19 05:52 I & O for Last 24 hours: Intake & Output 10/17/19 10/18/19 10/19/19 10/20/19 11:59 11:59 11:59 11:59 Intake Total 2083 / 2083 2536 / 2536 2209 / 2209 Output Total 200 / 200 800 / 800 500 / 500 Balance 1883 / 1883 1736 / 1736 1709 / 1709 Weight 108 lb 8 oz 108 lb 7.832 oz 112 lb 14.027 oz Microbiology Reports for the Last 24 Hours: Microbiology 10/18/19 04:55 Sputum - Expectorated Sputum Gram Stain - Final 10/18/19 04:55 Sputum - Expectorated Sputum Sputum Culture - Preliminary 10/17/19 23:28 Blood Blood Culture - Preliminary NO GROWTH AFTER 48 HOURS 10/17/19 23:28 Blood Blood Culture - Preliminary NO GROWTH AFTER 48 HOURS Radiology Reports for the Last 24 Hours: Echo 1. Biatrial enlargement, normal left ventricular size, mild concentric left ventricular hypertrophy, hyperdynamic left ventricular systolic function, visually estimated ejection fraction over 65% with no regional wall motion abnormality, Doppler evidence of impaired relaxation seen. 2. Moderately enlarged right ventricle with normal contractility. 3. Mild mitral and moderate tricuspid regurgitation, calculated right ventricular systolic pressure 60 mmHg. 4. No significant pericardial effusion noted. - Constitutional Comments: mild respiratory distress - *Routine Respiratory Exam Present: diminished air movement - *Routine Cardiovascular Exam Present: tachycardia - *Routine Abdominal Exam Present: soft, normoactive bowel sounds. Absent: tenderness - *Routine Extremities Exam Absent: cyanosis, clubbing, edema - *Routine Skin Exam Present: warm. Absent: rash - *Routine Neurological Exam Present: alert, oriented X3 Assessment and Plan (1) Acute exacerbation of chronic obstructive airways disease Current visit: Yes Status: Acute Category: Medical Code(s): J44.1 - Chronic obstructive pulmonary disease with (acute) exacerbation (2) Anemia Current visit: Yes Status: Acute Qualifiers: Anemia type: unspecified type Qualified Code(s): D64.9 - Anemia, unspecified Category: Medical Code(s): D64.9 - Anemia, unspecified (3) Sinus tachycardia Current visit: Yes Status: Acute Category: Medical Code(s): R00.0 - Tachycardia, unspecified (4) Pulmonary hypertension Current visit: Yes Status: Acute Category: Medical Code(s): I27.20 - Pulmonary hypertension, unspecified - Assessment and plan all Dx Assessment and Plan for all problems:: We will start patient on a beta-sowmya today to try to decrease heart rate. We will continue antibiotics and steroids. Will discuss further care with Dr. Koehler. <Oscar Koehler - Last Filed: 10/20/19 10:57> Internal Medicine - PN: Subj *Date: 10/20/19 *Time: 10:56 Exam Vital signs and Labs for Last 24 Hours: Temp Pulse Resp BP Pulse Ox 97.8 F 116 H 32 H 124/48 L 92 L 10/20/19 09:00 10/20/19 09:00 10/20/19 09:00 10/20/19 09:00 10/20/19 09:00 Laboratory Results - last 24 hr 10/20/19 09:13: Specimen Source Left radial, O2 % 2.5l, ABG pH 7.41, ABG pCO2 36.6, ABG pO2 88.0, ABG HCO3 22.8, ABG Total CO2 23.9, ABG O2 Saturation 96, ABG Base Excess -1.8, Oskar Test Acceptable I & O for Last 24 hours: Intake & Output 10/17/19 10/18/19 10/19/19 10/20/19 11:59 11:59 11:59 11:59 Intake Total 2082 / 3 2536 / 2536 2449 / 2449 Output Total 200 / 200 800 / 800 1000 / 1000 Balance 1883 / 1883 1736 / 1736 1449 / 1449 Weight 108 lb 8 oz 108 lb 7.832 oz 112 lb 14.027 oz Microbiology Reports for the Last 24 Hours: Microbiology 10/18/19 04:55 Sputum - Expectorated Sputum Gram Stain - Final 10/18/19 04:55 Sputum - Expectorated Sputum Sputum Culture - Preliminary Gram Positive Cocci 10/17/19 23:28 Blood Blood Culture - Preliminary NO GROWTH AFTER 48 HOURS 10/17/19 23:28 Blood Blood Culture - Preliminary NO GROWTH AFTER 48 HOURS Assessment and Plan (1) Acute exacerbation of chronic obstructive airways disease Current visit: Yes Status: Acute Category: Medical Code(s): J44.1 - Chronic obstructive pulmonary disease with (acute) exacerbation (2) Anemia Current visit: Yes Status: Acute Qualifiers: Anemia type: unspecified type Qualified Code(s): D64.9 - Anemia, unspecified Category: Medical Code(s): D64.9 - Anemia, unspecified (3) Sinus tachycardia Current visit: Yes Status: Acute Category: Medical Code(s): R00.0 - Tachycardia, unspecified (4) Pulmonary hypertension Current visit: Yes Status: Acute Category: Medical Code(s): I27.20 - Pulmonary hypertension, unspecified - Assessment and plan all Dx Assessment and Plan for all problems:: Patient seen and examined this morning. She is more dyspneic and a bit more anxious. We will check a blood gas. She has remained tachycardic. Echocardiogram confirmed pulmonary hypertension. Will discontinue the diltiazem and switch to metoprolol for rate control. If her blood pressure can tolerate it, will consider adding lisinopril also.
[2019-10-20 09:33] LABS: ABG Base Excess -1.8 mmol/L (-2.4-2.3); ABG HCO3 22.8 mmhg (22.0-26.0); ABG Oxygen Saturation 96 % (90-100); ABG PCO2 36.6 mmhg (35.0-45.0); ABG PH 7.41 mmol/L (7.35-7.45); ABG TCO2 23.9 mmhg (23-27)
[2019-10-20 09:37] LABS: Allen's Test Acceptable; Oxygen 2.5L %
--- NOTE | 2019-10-21 08:33 | Pharmacy Consult Notes ---
- Pharmacy Consult Date: 10/21/19 Time: 08:32 Referring provider: DR. NUÑEZ Reason for Consult:: VANCOMYCIN DOSING Allergies and ADEs:: Allergies Allergy/AdvReac Type Severity Reaction Status Date / Time No Known Allergies Allergy Verified 04/08/18 14:42 Home Medications:: Home Medications Medication Instructions Recorded Confirmed Type Tiotropium [place] [Spiriva 18 mg INHALATION DAILY 04/08/18 10/18/19 History 18mcg/puff inhaler] Venlafaxine HCl [Venlafaxine HCl 150 mg PO DAILY 04/08/18 10/18/19 History ER] risperiDONE [Risperdal 1mg Tablet] 1 mg PO BID 04/08/18 10/18/19 History Budesonide/Formoterol Fumarate 2 puffs IH BID 10/17/19 10/18/19 History [Symbicort 160-4.5 Mcg Inhaler] Roflumilast [Daliresp] 500 mcg PO DAILY 10/17/19 10/18/19 History Varenicline Tartrate [Chantix 1mg 1 mg PO BID 10/17/19 10/18/19 History tablet] Albuterol Sulfate [Albuterol HFA 2 puff IH QIDP PRN 10/18/19 10/18/19 History Inhaler] Ipratropium/Albuterol Sulfate 0.5 mg IH QIDP PRN 10/18/19 10/18/19 History [Iprat-Albut 0.5-3(2.5) mg/3 ml] Risedronate Sodium 150 mg PO MONTHLY 10/18/19 10/18/19 History Trazodone HCl 150 mg PO DAILY 10/18/19 10/18/19 History Height: 1.52 m Weight: 50.916 kg Laboratory Results:: Laboratory Results - last 24 hr 10/20/19 09:13: Specimen Source Left radial, O2 % 2.5l, ABG pH 7.41, ABG pCO2 36.6, ABG pO2 88.0, ABG HCO3 22.8, ABG Total CO2 23.9, ABG O2 Saturation 96, ABG Base Excess -1.8, Oskar Test Acceptable Medical History: Reports:: Chronic Obstructive Pulmonary Disease (COPD), Depression, Home Oxygen, Lung Disease (Pulmonary fibrosis) Denies:: Diabetes Mellitus Type 1, Diabetes Mellitus Type 2 Assessment and Plan (1) Acute exacerbation of chronic obstructive airways disease Current visit: Yes Status: Acute Category: Medical Code(s): J44.1 - Chronic obstructive pulmonary disease with (acute) exacerbation (2) Anemia Current visit: Yes Status: Acute Qualifiers: Anemia type: unspecified type Qualified Code(s): D64.9 - Anemia, unspec ified Category: Medical Code(s): D64.9 - Anemia, unspecified (3) Sinus tachycardia Current visit: Yes Status: Acute Category: Medical Code(s): R00.0 - Tachycardia, unspecified (4) Pulmonary hypertension Current visit: Yes Status: Acute Category: Medical Code(s): I27.20 - Pulmonary hypertension, unspecified - Assessment and plan all Dx Assessment and Plan for all problems:: BASED ON PATIENT FACTORS, RECOMMEND VANCOMYCIN 1 GM IV Q12H. WILL OBTAIN VANCOM YCIN TROUGH LEVEL PRIOR TO 4TH DOSE. PHARMACY WILL FOLLOW DAILY AND ADJUST APPROPRIATE.
--- NOTE | 2019-10-21 09:14 | Progress Note ---
<Katie Huizar - Last Filed: 10/21/19 09:12> Internal Medicine - PN: Subj *Date: 10/21/19 *Time: 09:12 Interval history: Patient states she is feeling a little bit better today. Her heart rate is still in the 110-120s but her respirations have decreased. She seems to be breathing easier today. She denies any pain and still asks if she can go home. Exam Vital signs and Labs for Last 24 Hours: Temp Pulse Resp BP Pulse Ox 97.6 F 130 H 18 149/88 H 97 10/21/19 07:53 10/21/19 08:00 10/21/19 07:53 10/21/19 07:53 10/21/19 07:53 Laboratory Results - last 24 hr 10/20/19 09:13: Specimen Source Left radial, O2 % 2.5l, ABG pH 7.41, ABG pCO2 36.6, ABG pO2 88.0, ABG HCO3 22.8, ABG Total CO2 23.9, ABG O2 Saturation 96, ABG Base Excess -1.8, Oskar Test Acceptable I & O for Last 24 hours: Intake & Output 10/18/19 10/19/19 10/20/19 10/21/19 11:59 11:59 11:59 11:59 Intake Total 2083 / 2083 2536 / 2536 2449 / 2449 1694 / 1694 Output Total 200 / 200 800 / 800 1000 / 1000 1100 / 1100 Balance 1883 / 1883 1736 / 1736 1449 / 1449 594 / 594 Weight 108 lb 8 oz 108 lb 7.832 oz 112 lb 14.027 oz 112 lb 4 oz Microbiology Reports for the Last 24 Hours: Microbiology 10/18/19 04:55 Sputum - Expectorated Sputum Gram Stain - Final 10/18/19 04:55 Sputum - Expectorated Sputum Sputum Culture - Final Staphylococcus aureus - Constitutional no acute distress - *Routine Respiratory Exam Present: rhonchi, wheezes - *Routine Cardiovascular Exam Present: tachycardia - *Routine Abdominal Exam Present: soft, normoactive bowel sounds. Absent: tenderness - *Routine Extremities Exam Absent: cyanosis, clubbing, edema - *Routine Skin Exam Present: warm. Absent: rash - *Routine Neurological Exam Present: alert, oriented X3 Assessment and Plan (1) Acute exacerbation of chronic obstructive airways disease Current visit: Yes Status: Acute Category: Medical Code(s): J44.1 - Chronic obstructive pulmonary disease with (acute) exacerbation (2) Anemia Current visit: Yes Status: Acute Qualifiers: Anemia type: unspecified type Qualified Code(s): D64.9 - Anemia, unspecified Category: Medical Code(s): D64.9 - Anemia, unspecified (3) Sinus tachycardia Current visit: Yes Status: Acute Category: Medical Code(s): R00.0 - Tachycardia, unspecified (4) Pulmonary hypertension Current visit: Yes Status: Acute Category: Medical Code(s): I27.20 - Pulmonary hypertension, unspecified (5) MRSA pneumonia Current visit: Yes Status: Acute Category: Medical Code(s): J15.212 - Pneumonia due to Methicillin resistant Staphylococcus aureus - Assessment and plan all Dx Assessment and Plan for all problems:: Patient sputum culture came back positive for MRSA. She has been started on vancomycin. Her beta-sowmya will be increased as well to try to control her heart rate. <Oscar Koehler - Last Filed: 10/21/19 14:13> Internal Medicine - PN: Subj *Date: 10/21/19 *Time: 14:10 Exam Vital signs and Labs for Last 24 Hours: Temp Pulse Resp BP Pulse Ox 97.6 F 98 H 45 H 149/88 H 100 10/21/19 07:53 10/21/19 13:35 10/21/19 10:30 10/21/19 07:53 10/21/19 13:35 I & O for Last 24 hours: Intake & Output 10/19/19 10/20/19 10/21/19 10/22/19 11:59 11:59 11:59 11:59 Intake Total 2536 / 2536 2449 / 2449 1694 / 1694 Output Total 800 / 800 1000 / 1000 1100 / 1100 Balance 1736 / 1736 1449 / 1449 594 / 594 Weight 108 lb 7.832 oz 112 lb 14.027 oz 112 lb 4 oz Microbiology Reports for the Last 24 Hours: Microbiology 10/18/19 04:55 Sputum - Expectorated Sputum Gram Stain - Final 10/18/19 04:55 Sputum - Expectorated Sputum Sputum Culture - Final Staphylococcus aureus Assessment and Plan (1) Acute exacerbation of chronic obstructive airways disease Current visit: Yes Status: Acute Category: Medical Code(s): J44.1 - Chronic obstructive pulmonary disease with (acute) exacerbation (2) Anemia Current visit: Yes Status: Acute Qualifiers: Anemia type: unspecified type Qualified Code(s): D64.9 - Anemia, unspecified Category: Medical Code(s): D64.9 - Anemia, unspecified (3) Sinus tachycardia Current visit: Yes Status: Acute Category: Medical Code(s): R00.0 - Tachycardia, unspecified (4) Pulmonary hypertension Current visit: Yes Status: Acute Category: Medical Code(s): I27.20 - Pulmonary hypertension, unspecified (5) Staph aureus infection Current visit: Yes Status: Acute Category: Medical Code(s): A49.01 - Methicillin susceptible Staphylococcus aureus infection, unspecified site - Assessment and plan all Dx Assessment and Plan for all problems:: Patient seen and examined this morning. She remains dyspneic at rest and with exertion but feels a little better from yesterday. Heart rate has improved some with addition of metoprolol but still having episodes of tachycardia. We will increase the metoprolol. Likely some component of anxiety as well.
--- NOTE | 2019-10-21 10:32 | Progress Note ---
Internal Medicine - PN: Subj *Date: 10/21/19 *Time: 10:31 Exam Vital signs and Labs for Last 24 Hours: Temp Pulse Resp BP Pulse Ox 97.6 F 130 H 18 149/88 H 97 10/21/19 07:53 10/21/19 08:00 10/21/19 07:53 10/21/19 07:53 10/21/19 07:53 I & O for Last 24 hours: Intake & Output 10/18/19 10/19/19 10/20/19 10/21/19 23:59 23:59 23:59 23:59 Intake Total 3336 / 3336 2633 / 2633 2097 / 2097 696 / 696 Output Total 1000 / 1000 1500 / 1500 600 / 600 Balance 2336 / 2336 2633 / 2633 597 / 597 96 / 96 Weight 49.215 kg 49.21 kg 51.2 kg 50.916 kg Microbiology Reports for the Last 24 Hours: Microbiology 10/18/19 04:55 Sputum - Expectorated Sputum Gram Stain - Final 10/18/19 04:55 Sputum - Expectorated Sputum Sputum Culture - Final Staphylococcus aureus Assessment and Plan (1) Acute exacerbation of chronic obstructive airways disease Current visit: Yes Status: Acute Category: Medical Code(s): J44.1 - Chronic obstructive pulmonary disease with (acute) exacerbation (2) Anemia Current visit: Yes Status: Acute Qualifiers: Anemia type: unspecified type Qualified Code(s): D64.9 - Anemia, unspecified Category: Medical Code(s): D64.9 - Anemia, unspecified (3) Sinus tachycardia Current visit: Yes Status: Acute Category: Medical Code(s): R00.0 - Tachycardia, unspecified (4) Pulmonary hypertension Current visit: Yes Status: Acute Category: Medical Code(s): I27.20 - Pulmonary hypertension, unspecified (5) MRSA pneumonia Current visit: Yes Status: Acute Category: Medical Code(s): J15.212 - Pneumonia due to Methicillin resistant Staphylococcus aureus The patient's infection will respond to the chosen ABx?: Yes Is the patient receiving the right drug, dose, and route?: Yes Could a more targeted ABx be ordered?: No (ABX CHANGED TO VANCOMYCIN DUE TO MRSA IN SPUTUM)
[2019-10-22 06:07] LABS: Basophils % 0.1 % (0.1-2.0); Hematocrit 29.1 % (37.0-47.0); Hemoglobin 9.1 g/dL (12.2-16.2); Lymphocytes % 7.7 % (10-50); Mean Corpuscular HGB Conc 31.3 g/dL (31.8-35.4); Mean Corpuscular Volume 92.7 fl (81-99); Mean Platelet Volume 7.9 fl (7.4-10.4); Monocytes # 0.6 K/mm3 (0.1-1.0); Monocytes % 4.6 % (1.7-9.3); Neutrophils # 10.8 K/mm3 (1.8-7.8); Neutrophils % 87.6 % (37.0-80.0); Platelet Count 240 K/mm3 (142-424); Red Blood Count 3.14 M/mm3 (4.20-5.40); Red Cell Distribution Width 13.2 % (11.5-17.5); White Blood Count 12.3 K/mm3 (4.8-10.8)
[2019-10-22 06:19] LABS: Anion Gap 4.4 mEq/L (5-15); Calcium 7.9 mg/dl (8.4-10.2)
[2019-10-22 06:39] LABS: Lymphocytes % 12 % (10-50); Monocytes % 3 % (2-9); Neutrophils % 82 % (42-76); RBC Morphology Normal; Total Cells Counted 100
--- NOTE | 2019-10-22 08:40 | Progress Note ---
<Katie Huizar - Last Filed: 10/22/19 08:38> Internal Medicine - PN: Subj *Date: 10/22/19 *Time: 08:38 Interval history: Patient states she feels about the same today. Her respiratory rate is slower as is her heart rate. She still has shortness of breath but she states it is at baseline. She slept well last night and is eating breakfast this morning. Exam Vital signs and Labs for Last 24 Hours: Temp Pulse Resp BP Pulse Ox 97.5 F L 81 16 130/76 99 10/22/19 04:00 10/22/19 06:00 10/22/19 04:00 10/22/19 04:00 10/22/19 06:00 Laboratory Results - last 24 hr 10/22/19 05:15: WBC 12.3 H, RBC 3.14 L, Hgb 9.1 L, Hct 29.1 L, MCV 92.7, MCH 29.0, MCHC 31.3 L, RDW 13.2, Plt Count 240 D, MPV 7.9, Neut % (Auto) 87.6 H, Lymph % (Auto) 7.7 L, [place] % (Auto) 4.6, Eos % (Auto) 0.0 L, Baso % (Auto) 0.1, Neut # (Auto) 10.8 H, Lymph # (Auto) 1.0, [place] # (Auto) 0.6, Eos # (Auto) 0.0, Baso # (Auto) 0.0, Total Counted 100, Neutrophils % (Manual) 82 H, Band Neutrophils % 1.0, Lymphocytes % (Manual) 12, Monocytes % (Manual) 3, Metamyelocytes % 2.0 H, Platelet Estimate Normal, RBC Morphology Normal 10/22/19 05:15: Sodium 138, Potassium 4.4, Chloride 101, Carbon Dioxide 37 H, Anion Gap 4.4 L, BUN 21 H, Creatinine 0.60, Estimated Creat Clear 47, Estimated GFR 99, Est GFR ( Amer) 120, Glucose 129 H, Calcium 7.9 L I & O for Last 24 hours: Intake & Output 10/19/19 10/20/19 10/21/19 10/22/19 11:59 11:59 11:59 11:59 Intake Total 2536 / 2536 2449 / 2449 1694 / 1694 1721 / 1721 Output Total 800 / 800 1000 / 1000 1100 / 1100 1700 / 1700 Balance 1736 / 1736 1449 / 1449 594 / 594 Weight 108 lb 7.832 oz 112 lb 14.027 oz 112 lb 4 oz 120 lb 13.013 oz Microbiology Reports for the Last 24 Hours: Microbiology 10/18/19 04:55 Sputum - Expectorated Sputum Gram Stain - Final 10/18/19 04:55 Sputum - Expectorated Sputum Sputum Culture - Final Staphylococcus aureus - Constitutional mild distress - *Routine Respiratory Exam Present: rhonchi, wheezes, diminished air movement - *Routine Cardiovascular Exam Present: tachycardia - *Routine Abdominal Exam Present: soft, normoactive bowel sounds. Absent: tenderness - *Routine Extremities Exam Absent: cyanosis, clubbing, edema - *Routine Skin Exam Present: warm. Absent: rash - *Routine Neurological Exam Present: alert, oriented X3 Assessment and Plan (1) Acute exacerbation of chronic obstructive airways disease Current visit: Yes Status: Acute Category: Medical Code(s): J44.1 - Chronic obstructive pulmonary disease with (acute) exacerbation (2) Anemia Current visit: Yes Status: Acute Qualifiers: Anemia type: unspecified type Qualified Code(s): D64.9 - Anemia, unspecified Category: Medical Code(s): D64.9 - Anemia, unspecified (3) Sinus tachycardia Current visit: Yes Status: Acute Category: Medical Code(s): R00.0 - Tachycardia, unspecified (4) Pulmonary hypertension Current visit: Yes Status: Acute Category: Medical Code(s): I27.20 - Pulmonary hypertension, unspecified (5) Staph aureus infection Current visit: Yes Status: Acute Category: Medical Code(s): A49.01 - Methicillin susceptible Staphylococcus aureus infection, unspecified site - Assessment and plan all Dx Assessment and Plan for all problems:: We will continue IV antibiotics as well as steroids and nebs. Will discuss further care with Dr. Koehler. <Oscar Koehler - Last Filed: 10/22/19 12:43> Internal Medicine - PN: Subj *Date: 10/22/19 *Time: 12:42 Exam Vital signs and Labs for Last 24 Hours: Temp Pulse Resp BP Pulse Ox 97.8 F 114 H 40 H 135/65 86 L 10/22/19 08:00 10/22/19 09:00 10/22/19 09:00 10/22/19 08:00 10/22/19 09:00 Laboratory Results - last 24 hr 10/22/19 05:15: WBC 12.3 H, RBC 3.14 L, Hgb 9.1 L, Hct 29.1 L, MCV 92.7, MCH 29.0, MCHC 31.3 L, RDW 13.2, Plt Count 240 D, MPV 7.9, Neut % (Auto) 87.6 H, Lymph % (Auto) 7.7 L, [place] % (Auto) 4.6, Eos % (Auto) 0.0 L, Baso % (Auto) 0.1, Neut # (Auto) 10.8 H, Lymph # (Auto) 1.0, [place] # (Auto) 0.6, Eos # (Auto) 0.0, Baso # (Auto) 0.0, Total Counted 100, Neutrophils % (Manual) 82 H, Band Neutrophils % 1.0, Lymphocytes % (Manual) 12, Monocytes % (Manual) 3, Metamyelocytes % 2.0 H, Platelet Estimate Normal, RBC Morphology Normal 10/22/19 05:15: Sodium 138, Potassium 4.4, Chloride 101, Carbon Dioxide 37 H, Anion Gap 4.4 L, BUN 21 H, Creatinine 0.60, Estimated Creat Clear 47, Estimated GFR 99, Est GFR ( Amer) 120, Glucose 129 H, Calcium 7.9 L I & O for Last 24 hours: Intake & Output 10/20/19 10/21/19 10/22/19 10/23/19 11:59 11:59 11:59 11:59 Intake Total 2449 / 2449 1694 / 1694 1960 / 1960 Output Total 1000 / 1000 1100 / 1100 1700 / 1700 Balance 1449 / 1449 594 / 594 261 / 261 Weight 112 lb 14.027 oz 112 lb 4 oz 120 lb 13.013 oz Assessment and Plan (1) Acute exacerbation of chronic obstructive airways disease Current visit: Yes Status: Acute Category: Medical Code(s): J44.1 - Chronic obstructive pulmonary disease with (acute) exacerbation (2) Anemia Current visit: Yes Status: Acute Qualifiers: Anemia type: unspecified type Qualified Code(s): D64.9 - Anemia, unspecified Category: Medical Code(s): D64.9 - Anemia, unspecified (3) Sinus tachycardia Current visit: Yes Status: Acute Category: Medical Code(s): R00.0 - Tachycardia, unspecified (4) Pulmonary hypertension Current visit: Yes Status: Acute Category: Medical Code(s): I27.20 - Pulmonary hypertension, unspecified (5) Staph aureus infection Current visit: Yes Status: Acute Category: Medical Code(s): A49.01 - Methicillin susceptible Staphylococcus aureus infection, unspecified site - Assessment and plan all Dx Assessment and Plan for all problems:: Patient seen and examined this morning. She appears to be breathing more comfortably although still tachypneic. Heart rate is running 90-100 and sinus rhythm. We will continue current management.
--- NOTE | 2019-10-22 08:51 | Electrocardiograph Report ---
APPROVED REPORT Exam: Resting ECG HR:174 bpm ECG Measurements Heart Rate 174 AXES MS 94 P 81 QRSd 62 QRS 78 QT 218 T39 QTc 370 <Conclusion> Sinus tachycardia with short MS Nonspecific ST abnormality Abnormal ECG Electronically signed by : Prabhu Eli, 10/22/2019 08:51:12
--- NOTE | 2019-10-23 08:43 | Pharmacy Consult Notes ---
- Pharmacy Consult Date: 10/23/19 Time: 08:41 Referring provider: DR. NUÑEZ Reason for Consult:: VANCOMYCIN TROUGH LEVEL AND DOSE CHANGE Allergies and ADEs:: Allergies Allergy/AdvReac Type Severity Reaction Status Date / Time No Known Allergies Allergy Verified 04/08/18 14:42 Home Medications:: Home Medications Medication Instructions Recorded Confirmed Type Tiotropium [place] [Spiriva 18 mg INHALATION DAILY 04/08/18 10/18/19 History 18mcg/puff inhaler] Venlafaxine HCl [Venlafaxine HCl 150 mg PO DAILY 04/08/18 10/18/19 History ER] risperiDONE [Risperdal 1mg Tablet] 1 mg PO BID 04/08/18 10/18/19 History Budesonide/Formoterol Fumarate 2 puffs IH BID 10/17/19 10/18/19 History [Symbicort 160-4.5 Mcg Inhaler] Roflumilast [Daliresp] 500 mcg PO DAILY 10/17/19 10/18/19 History Varenicline Tartrate [Chantix 1mg 1 mg PO BID 10/17/19 10/18/19 History tablet] Albuterol Sulfate [Albuterol HFA 2 puff IH QIDP PRN 10/18/19 10/18/19 History Inhaler] Ipratropium/Albuterol Sulfate 0.5 mg IH QIDP PRN 10/18/19 10/18/19 History [Iprat-Albut 0.5-3(2.5) mg/3 ml] Risedronate Sodium 150 mg PO MONTHLY 10/18/19 10/18/19 History Trazodone HCl 150 mg PO DAILY 10/18/19 10/18/19 History Height: 1.52 m Weight: 54.63 kg Laboratory Results:: Laboratory Results - last 24 hr 10/22/19 20:42: Vancomycin Trough 8.6 Medical History: Reports:: Chronic Obstructive Pulmonary Disease (COPD), Depression, Home Oxygen, Lung Disease (Pulmonary fibrosis) Denies:: Diabetes Mellitus Type 1, Diabetes Mellitus Type 2 Assessment and Plan (1) Acute exacerbation of chronic obstructive airways disease Current visit: Yes Status: Acute Category: Medical Code(s): J44.1 - Chronic obstructive pulmonary disease with (acute) exacerbation (2) Anemia Current visit: Yes Status: Acute Qualifiers: Anemia type: unspecified type Qualified Code(s): D64.9 - Anemia, unspecified Category: Medical Code(s): D64.9 - Anemia, unspecified (3) Sinus tachycardia Current visit: Yes Status: Acute Category: Medical Code(s): R00.0 - Tachycardia, unspecified (4) Pulmonary hypertension Current visit: Yes Status: Acute Category: Medical Code(s): I27.20 - Pulmonary hypertension, unspecified (5) Staph aureus infection Current visit: Yes Status: Acute Category: Medical Code(s): A49.01 - Methicillin susceptible Staphylococcus aureus infection, unspecified site - Assessment and plan all Dx Assessment and Plan for all problems:: BASED ON PATIENT FACTORS AND VANCOMYCIN TROUGH LEVEL OF 8.6, RECOMMEND CHANGING DOSE TO 1GM EVERY 12 HOURS. WILL OBTAIN TROUGH LEVEL ONCE STEADY STATE HAS BEEN REACHED AND WILL ADJUST DOSE APPROPRIATE AT THAT POINT. -ANIYAH WALKERD
--- NOTE | 2019-10-23 10:47 | Progress Note ---
Internal Medicine - PN: Subj *Date: 10/23/19 *Time: 08:55 Interval history: States she does not feel much better but clinically seems marginally improved. She rested fairly well last night. She is breathing much more comfortably this morning. Her heart rate has been better controlled. Sats are stable at rest but dropped to the mid to upper 80s with activity. Exam Vital signs and Labs for Last 24 Hours: Temp Pulse Resp BP Pulse Ox 97.9 F 90 24 139/69 98 10/23/19 08:45 10/23/19 08:45 10/23/19 08:45 10/23/19 08:45 10/23/19 08:45 Laboratory Results - last 24 hr 10/22/19 20:42: Vancomycin Trough 8.6 I & O for Last 24 hours: Intake & Output 10/20/19 10/21/19 10/22/19 10/23/19 11:59 11:59 11:59 11:59 Intake Total 2449 / 2449 1694 / 1694 1961 / 1961 840 / 840 Output Total 1000 / 1000 1100 / 1100 1700 / 1700 1600 / 1600 Balance 1449 / 1449 594 / 594 261 / 261 -760 / -760 Weight 112 lb 14.027 oz 112 lb 4 oz 120 lb 13.013 oz 120 lb 7 oz Microbiology Reports for the Last 24 Hours: Microbiology 10/17/19 23:28 Blood Blood Culture - Final NO GROWTH AFTER 5 DAYS 10/17/19 23:28 Blood Blood Culture - Final NO GROWTH AFTER 5 DAYS Narrative: She is resting in bed. She breathes with pursed lip respirations. Respirations are more even and unlabored. Color is good. Breath sounds are generally diminished but improved bilaterally. No wheezes. Assessment and Plan (1) Acute exacerbation of chronic obstructive airways disease Current visit: Yes Status: Acute Category: Medical Code(s): J44.1 - Chronic obstructive pulmonary disease with (acute) exacerbation (2) Anemia Current visit: Yes Status: Acute Qualifiers: Anemia type: unspecified type Qualified Code(s): D64.9 - Anemia, unspecified Category: Medical Code(s): D64.9 - Anemia, unspecified (3) Sinus tachycardia Current visit: Yes Status: Acute Category: Medical Code(s): R00.0 - Tachycardia, unspecified (4) Pulmonary hypertension Current visit: Yes Status: Acute Category: Medical Code(s): I27.20 - Pulmonary hypertension, unspecified (5) Staph aureus infection Current visit: Yes Status: Acute Category: Medical Code(s): A49.01 - Me thicillin susceptible Staphylococcus aureus infection, unspecified site - Assessment and plan all Dx Assessment and Plan for all problems:: Clinically improving slowly. Continue current treatment. Her weight has increased about 8 pounds since admission. We will give a dose of Lasix today and discontinue her IV fluids.
--- NOTE | 2019-10-24 08:48 | Progress Note ---
Internal Medicine - PN: Subj *Date: 10/24/19 *Time: 08:53 Interval history: She had a pretty good day yesterday. Was able to tolerate sitting up in the chair. Still quite dyspneic with minimal exertion. Rested well last night. Exam Vital signs and Labs for Last 24 Hours: Temp Pulse Resp BP Pulse Ox 97.9 F 86 24 139/75 92 L 10/24/19 08:00 10/24/19 08:00 10/24/19 08:00 10/24/19 08:00 10/24/19 08:00 Laboratory Results - last 24 hr 10/24/19 06:19: POC Glucose 159 H I & O for Last 24 hours: Intake & Output 10/21/19 10/22/19 10/23/19 10/24/19 11:59 11:59 11:59 12:59 Intake Total 1694 / 1694 1960 / 1960 840 / 840 1280 / 1280 Output Total 1100 / 1100 1700 / 1700 1999 / 1999 3300 / 3300 Balance 594 / 594 261 / 261 -1160 / -1160 -2019 / -2019 Weight 112 lb 4 oz 120 lb 13.013 oz 120 lb 7 oz 115 lb 7 oz Narrative: She appears comfortable with her breathing this morning. Color is good. Breath sounds are quite diminished but otherwise clear. Heart is regular. Extremities no edema Assessment and Plan (1) Acute exacerbation of chronic obstructive airways disease Current visit: Yes Status: Acute Category: Medical Code(s): J44.1 - Chronic obstructive pulmonary disease with (acute) exacerbation (2) Anemia Current visit: Yes Status: Acute Qualifiers: Anemia type: unspecified type Qualified Code(s): D64.9 - Anemia, unspecified Category: Medical Code(s): D64.9 - Anemia, unspecified (3) Sinus tachycardia Current visit: Yes Status: Acute Category: Medical Code(s): R00.0 - Tachycardia, unspecified (4) Pulmonary hypertension Current visit: Yes Status: Acute Category: Medical Code(s): I27.20 - Pulmonary hypertension, unspecified (5) Staph aureus infection Current visit: Yes Status: Acute Category: Medical Code(s): A49.01 - Methicillin susceptible Staphylococcus aureus infection, unspecified site - Assessment and plan all Dx Assessment and Plan for all problems:: Weight is down 5 pounds after Lasix yesterday and this seemed to help. Continue IV vancomycin and neb treatments. Encourage increased activity in the room.
--- NOTE | 2019-10-24 10:58 | Pharmacy Consult Notes ---
- Pharmacy Consult Date: 10/24/19 Time: 10:57 Referring provider: DR. NUÑEZ Reason for Consult:: VANCOMYCIN TROUGH LEVEL Allergies and ADEs:: Allergies Allergy/AdvReac Type Severity Reaction Status Date / Time No Known Allergies Allergy Verified 04/08/18 14:42 Home Medications:: Home Medications Medication Instructions Recorded Confirmed Type Tiotropium [place] [Spiriva 18 mg INHALATION DAILY 04/08/18 10/18/19 History 18mcg/puff inhaler] Venlafaxine HCl [Venlafaxine HCl 150 mg PO DAILY 04/08/18 10/18/19 History ER] risperiDONE [Risperdal 1mg Tablet] 1 mg PO BID 04/08/18 10/18/19 History Budesonide/Formoterol Fumarate 2 puffs IH BID 10/17/19 10/18/19 History [Symbicort 160-4.5 Mcg Inhaler] Roflumilast [Daliresp] 500 mcg PO DAILY 10/17/19 10/18/19 History Varenicline Tartrate [Chantix 1mg 1 mg PO BID 10/17/19 10/18/19 History tablet] Albuterol Sulfate [Albuterol HFA 2 puff IH QIDP PRN 10/18/19 10/18/19 History Inhaler] Ipratropium/Albuterol Sulfate 0.5 mg IH QIDP PRN 10/18/19 10/18/19 History [Iprat-Albut 0.5-3(2.5) mg/3 ml] Risedronate Sodium 150 mg PO MONTHLY 10/18/19 10/18/19 History Trazodone HCl 150 mg PO DAILY 10/18/19 10/18/19 History Height: 1.52 m Weight: 52.362 kg Laboratory Results:: Laboratory Results - last 24 hr 10/24/19 06:19: POC Glucose 159 H 10/24/19 09:25: Vancomycin Trough 12.6 H Medical History: Reports:: Chronic Obstructive Pulmonary Disease (COPD), Depression, Home Oxygen, Lung Disease (Pulmonary fibrosis) Denies:: Diabetes Mellitus Type 1, Diabetes Mellitus Type 2 Assessment and Plan (1) Acute exacerbation of chronic obstructive airways disease Current visit: Yes Status: Acute Category: Medical Code(s): J44.1 - Chronic obstructive pulmonary disease with (acute) exacerbation (2) Anemia Current visit: Yes Status: Acute Qualifiers: Anemia type: unspecified type Qualified Code(s): D64.9 - Anemia, unspecified Category: Medical Code(s): D64.9 - Anemia, unspecified (3) Sinus tachycardia Current visit: Yes Status: Acute Category: Medical Code(s): R00.0 - Tachycardia, unspecified (4) Pulmonary hypertension Current visit: Yes Status: Acute Category: Medical Code(s): I27.20 - Pulmonary hypertension, unspecified (5) Staph aureus infection Current visit: Yes Status: Acute Category: Medical Code(s): A49.01 - Methicillin susceptible Staphylococcus aureus infection, unspecified site - Assessment and plan all Dx Assessment and Plan for all problems:: BASED ON PATIENT FACTORS AND VANCOMYCIN TROUGH LEVEL OF 12.6, RECOMMEND CONTINUING CURRENT DOSE OF VANCOMYCIN IV (1GM EVERY 12 HOURS). PHARMACY WILL CONTINUE TO MONITOR AND ADJUST DOSE APPROPRIATE. -ANIYAH WALKERD
--- NOTE | 2019-10-25 08:14 | Progress Note ---
Internal Medicine - PN: Subj *Date: 10/25/19 *Time: 08:17 Interval history: Resting well at night and seems comfortable at rest. Dyspneic with exertion. Exam Vital signs and Labs for Last 24 Hours: Temp Pulse Resp BP Pulse Ox 97.8 F 77 20 149/67 H 98 10/25/19 04:00 10/25/19 06:51 10/25/19 04:00 10/25/19 04:00 10/25/19 06:51 Laboratory Results - last 24 hr 10/24/19 09:25: Vancomycin Trough 12.6 H I & O for Last 24 hours: Intake & Output 10/22/19 10/23/19 10/24/19 10/25/19 10:59 10:59 11:59 11:59 Intake Total 150 / 150 Output Total 1750 / 1750 Balance -1600 / -1600 Weight 114 lb 8 oz Narrative: Resting in bed. No acute distress at rest. Color is normal. Breath sounds are generally diminished. No rales or wheezes. Heart is regular. Assessment and Plan (1) Acute exacerbation of chronic obstructive airways disease Current visit: Yes Status: Acute Category: Medical Code(s): J44.1 - Chronic obstructive pulmonary disease with (acute) exacerbation (2) Anemia Current visit: Yes Status: Acute Qualifiers: Anemia type: unspecified type Qualified Code(s): D64.9 - Anemia, unspecified Category: Medical Code(s): D64.9 - Anemia, unspecified (3) Sinus tachycardia Current visit: Yes Status: Acute Category: Medical Code(s): R00.0 - Tachycardia, unspecified (4) Pulmonary hypertension Current visit: Yes Status: Acute Category: Medical Code(s): I27.20 - Pulmonary hypertension, unspecified (5) Staph aureus infection Current visit: Yes Status: Acute Category: Medical Code(s): A49.01 - Methicillin susceptible Staphylococcus aureus infection, unspecified site - Assessment and plan all Dx Assessment and Plan for all problems:: Continue IV antibiotics. Switch to oral steroids. Possibly discharge home tomorrow.
--- NOTE | 2019-10-26 08:40 | Progress Note ---
Internal Medicine - PN: Subj *Date: 10/26/19 *Time: 08:40 Interval history: She continues to improve. She is tolerating light activity around the room much better. Cough is almost completely resolved. Exam Vital signs and Labs for Last 24 Hours: Temp Pulse Resp BP Pulse Ox 97.9 F 86 20 141/54 H 97 10/26/19 07:52 10/26/19 07:52 10/26/19 07:52 10/26/19 07:52 10/26/19 08:02 I & O for Last 24 hours: Intake & Output 10/23/19 10/24/19 10/25/19 10/26/19 10:59 11:59 11:59 11:59 Intake Total 390 / 390 610 / 610 Output Total 2049 / 2049 1950 / 1949 Balance -1660 / -1660 -1340 / -1340 Weight 114 lb 8 oz 115 lb 4 oz Narrative: Alert and oriented. Respirations are even and unlabored. Color is normal. Lungs reveal diminished breath sounds but otherwise clear. Heart is regular. Extremities no edema. Assessment and Plan (1) Acute exacerbation of chronic obstructive airways disease Current visit: Yes Status: Acute Category: Medical Code(s): J44.1 - Chronic obstructive pulmonary disease with (acute) exacerbation (2) Anemia Current visit: Yes Status: Acute Qualifiers: Anemia type: unspecified type Qualified Code(s): D64.9 - Anemia, unspecified Category: Medical Code(s): D64.9 - Anemia, unspecified (3) Sinus tachycardia Current visit: Yes Status: Acute Category: Medical Code(s): R00.0 - Tachycardia, unspecified (4) Pulmonary hypertension Current visit: Yes Status: Acute Category: Medical Code(s): I27.20 - Pulmonary hypertension, unspecified (5) Staph aureus infection Current visit: Yes Status: Acute Category: Medical Code(s): A49.01 - Methicillin susceptible Staphylococcus aureus infection, unspecified site - Assessment and plan all Dx Assessment and Plan for all problems:: She is stable for discharge home. She will continue on antibiotics and steroids for 5 more days. She also will continue on her beta-sowmya. She will follow- up in the office next week and will also arrange for follow-up with her dot compliance manager.
--- NOTE | 2019-10-28 13:25 | Discharge Summary ---
General - General Admission date:: 10/18/19 <Oscar Koehler - 10/30/19 11:56> 10/18/19 <Katie Huizar - 10/28/19 13:26> Discharge date: 10/26/19 <GayeKatie - 10/28/19 13:26> HPI HPI: Ms. Gonzales is a 69-year-old female with a history of chronic obstructive pulmonary disease, pulmonary fibrosis, O2 dependence, depression and anxiety, and previous tobacco addiction who presented to the emergency room after being short of breath for about a week. She states this progressively worsened and at one time, O2 sats were in the 70s. She described productive cough of green sputum but denied fever. She felt she had been eating and drinking as usual. She wears her oxygen at all times at home. She had also been using her neb treatments. With evaluation in the emergency room, White blood cell count was elevated at 11,600 with a hemoglobin of 9.7 hematocrit of 30.1 ABGs revealed a pH of 7.4 PCO2 of 39.8 PO2 of 67.6 and a bicarb of 24.3; blood chemistries revealed a low potassium at 3.2 but was normal upon repeat at 3.8. Lactic acid was elevated at 4.4 and 4.5. Troponin I's were normal. In the emergency room, patient was started on Rocephin and Zithromax. She also received an IV fluid bolus. She was then admitted for further evaluation and treatment . <GayeKatie - 10/28/19 13:26> Hospital Course Hospital Course: The patient's initial chest x-ray showed COPD with chronic changes. She was admitted and started on antibiotics, steroids, and duo nebs. She did trigger for severe sepsis, but clinically did not appear septic. A repeat chest x-ray was ordered after being hydrated to see if there was any pneumonia. The repeat chest x-ray also showed COPD with chronic changes. The patient had an echo showing an EF of greater than 65% with biatrial enlargement, mild left ventricular hypertrophy, and a right ventricular systolic pressure of 60 mmHg. Nursing did call to report that the patient had sinus tachycardia of 130bpm whenever she was out of bed and with neb treatments. Her duo nebs were changed to Xopenex nebs. Her heart rate remained elevated, therefore she was started on a beta-sowmya and her diltiazem was discontinued. The patient's sputum culture came back positive for MRSA and she was started on vancomycin. Her beta-sowmya dose was increased as well to try to control her heart rate. Her respiratory rate improved as did her heart rate. She began sleeping and eating better. Her sats were stable at rest but continued to drop into the 80s with any activity. Her weight did increase by 8 pounds, therefore she was given a dose of Lasix and her IV fluids were discontinued. Her blood cultures came back negative. Her weight was down 5 pounds after the Lasix and this seemed to help her shortness of breath. She was continued on IV vancomycin and neb treatments and activity was encouraged. The patient was able to be weaned off of the IV steroids and switched to oral steroids. She continued to improve and was tolerating light activity around the room much better. Her cough almost completely resolved and she was stable to be discharged home on continue antibiotics and steroids for 5 more days. She will also be continued on a beta-sowmya and will follow-up in the office in a week and with her csm consultant. <Katie Huizar - 10/28/19 13:26> Objective Vital signs: Temp Pulse Resp BP Pulse Ox 98.0 F 70 24 133/60 100 10/26/19 11:58 10/26/19 12:00 10/26/19 11:58 10/26/19 11:58 10/26/19 11:58 <RodoOscar Hebert - 10/30/19 11:56> Temp Pulse Resp BP Pulse Ox 98.0 F 70 24 133/60 100 10/26/19 11:58 10/26/19 12:00 10/26/19 11:58 10/26/19 11:58 10/26/19 11:58 <Katie Huizar - 10/28/19 13:26> Narrative: Alert and oriented. Respirations are even and unlabored. Color is normal. Lungs reveal diminished breath sounds but otherwise clear. Heart is regular. Extremities no edema. <Katie Huizar - 10/28/19 13:26> DS: Diagnosis - Discharge Diagnosis (1) Acute exacerbation of chronic obstructive airways disease Status: Acute (2) Anemia Status: Acute (3) Sinus tachycardia Status: Acute (4) Pulmonary hypertension Status: Acute (5) Staph aureus infection Status: Acute <Katie Huizar - 10/28/19 13:05> (1) Acute exacerbation of chronic obstructive airways disease Status: Acute (2) Anemia Status: Acute (3) Sinus tachycardia Status: Acute (4) Pulmonary hypertension Status: Acute (5) Staph aureus infection Status: Acute <Oscar Koehler - 10/30/19 11:56> Discharge Plan - Patient Discharge Instructions ACTIVITY: Continue current activity <Katie Huizar - 10/28/19 13:26> DIET: continue same diet <Katie Huizar - 10/28/19 13:26> Patient Instructions: Chronic Obstructive Pulmonary Disease, Sepsis, DI for Chronic Obstructive Pulmonary Disease, DI for Sepsis -- Adult <Oscar Koehler - 10/30/19 11:56> Forms: <Oscar Koehler - 10/30/19 11:56> - Follow up Plan Follow up with: Oscar Koehler MD [Staff Physician] - 11/04/19 9:30 am (in [place] office) <Oscar Koehler - 10/30/19 11:56> Disposition: Home, Self-Care <Oscar Koehler - 10/30/19 11:56> Home Medications: Home Medications Medication Instructions Recorded Confirmed Type Tiotropium [place] [Spiriva 18 mg INHALATION DAILY 04/08/18 10/18/19 History 18mcg/puff inhaler] Venlafaxine HCl [Venlafaxine HCl 150 mg PO DAILY 04/08/18 10/18/19 History ER] risperiDONE [Risperdal 1mg Tablet] 1 mg PO BID 04/08/18 10/18/19 History Budesonide/Formoterol Fumarate 2 puffs IH BID 10/17/19 10/18/19 History [Symbicort 160-4.5 Mcg Inhaler] Roflumilast [Daliresp] 500 mcg PO DAILY 10/17/19 10/18/19 History Varenicline Tartrate [Chantix 1mg 1 mg PO BID 10/17/19 10/18/19 History tablet] Albuterol Sulfate [Albuterol HFA 2 puff IH QIDP PRN 10/18/19 10/18/19 History Inhaler] Ipratropium/Albuterol Sulfate 0.5 mg IH QIDP PRN 10/18/19 10/18/19 History [Iprat-Albut 0.5-3(2.5) mg/3 ml] Risedronate Sodium 150 mg PO MONTHLY 10/18/19 10/18/19 History Trazodone HCl 150 mg PO DAILY 10/18/19 10/18/19 History Metoprolol Tartrate [Lopressor 50 mg PO BID #60 tab 10/26/19 Rx 50mg tablet] Sulfamethoxazole/Trimethoprim 1 each PO BID #10 tab 10/26/19 Rx [Bactrim DS tablet] methylPREDNISolone [Medrol 4mg 4 mg PO DIRECTED #21 tab 10/26/19 Rx tab] <Oscar Koehler - 10/30/19 11:56> Prescriptions/Medication Reconciliation: New Metoprolol Tartrate [Lopressor 50mg tablet] 50 mg PO BID #60 tab Sulfamethoxazole/Trimethoprim [Bactrim DS tablet] 1 each PO BID #10 tab methylPREDNISolone [Medrol 4mg tab] 4 mg PO DIRECTED #21 tab Continued risperiDONE [Risperdal 1mg Tablet] 1 mg PO BID Varenicline Tartrate [Chantix 1mg tablet] 1 mg PO BID Ipratropium/Albuterol Sulfate [Iprat-Albut 0.5-3(2.5) mg/3 ml] 0.5 mg IH QIDP PRN PRN Reason: copd Trazodone HCl 150 mg PO DAILY Risedronate Sodium 150 mg PO MONTHLY Venlafaxine HCl [Venlafaxine HCl ER] 150 mg PO DAILY Tiotropium [place] [Spiriva 18mcg/puff inhaler] 18 mg INHALATION DAILY Roflumilast [Daliresp] 500 mcg PO DAILY Budesonide/Formoterol Fumarate [Symbicort 160-4.5 Mcg Inhaler] 2 puffs IH BID Albuterol Sulfate [Albuterol HFA Inhaler] 2 puff IH QIDP PRN PRN Reason: copd <Oscar Koehler - 10/30/19 11:56> - Problem Reconciliation Problems Reviewed?: Yes <Oscar Koehler - 10/30/19 11:56> Yes <Katie Huizar - 10/28/19 13:26> - Additional Information Additional Information: Concur with plan for discharge as outlined above. <Oscar Koehler - 10/30/19 11:56>
== END 2019-10-26 14:50 | disposition home or self-care (01) ==
LOC: 2ND 23:15 → ER 23:15 → 2ND 10-18 01:58
PROVIDERS: ADMIT Family Medicine; ATTEND Family Medicine
CPT/HCPCS: 36415; 71020; 71046; 80048; 80053; 80202; 82803; 82962; 83605; 83735; 83880; 84484; 85007; 85025; 87040; 87070; 87077; 87186; 87205; 93005; 93306; 94640; 94760; 94761; 96365; 96366; 96367; 99285; G0378; J0456; J3370

== ENCOUNTER 2020-03-30 17:20 | Emergency (ER) | payer MEDICARE, SELFPAY ==
--- NOTE | 2020-03-30 17:36 | XR_ITS ---
PROCEDURE: XR RIBS LT MIN 3V W CXR1V CLINICAL INDICATION: FALL Posttraumatic pain COMPARISON: CR CXR2V XR chest 2V from 04/08/[address] angio chest from 04/08/2018 CR XR CHEST 2V from 10/17/2019 DX XR CHEST 2V from 10/18/2019 FINDINGS: A frontal view of the chest shows no acute finding. Calcified granuloma is present in the left mid lung. Multiple views of the left ribs show no obvious fracture or lytic or blastic change. IMPRESSION: Negative left ribs Dictated b Oskar Hamilton MD 03/30/2020 18:17 Oskar Hamilton MD in [place] 03/30/2020 18:17
--- NOTE | 2020-03-30 17:36 | XR_ITS ---
PROCEDURE: XR HAND LT MIN 3V CLINICAL INDICATION: FALL Injury with pain COMPARISON: No exams were available for comparison FINDINGS: There is a nondisplaced oblique fracture involving the mid shaft the 4th metacarpal The joint spaces are well-preserved. No significant degenerative/arthritic changes. No erosive changes evident. Other findings:None. IMPRESSION: Nondisplaced oblique fracture mid shaft 4th metacarpal Dictated b Oskar Hamilton MD 03/30/2020 18:15 Oskar Hamilton MD in [place] 03/30/2020 18:15
[2020-03-30 17:41] VITALS: BP 131/65; PULSE 89; RESP 19; TEMP 36.6; O2SAT 98; BMI 18.9
--- NOTE | 2020-03-30 17:57 | HMH.EDUTC ---
[facility] [place] Clinical Impression: Metacarpal bone fracture Qualifiers: Encounter type: initial encounter Metacarpal bone: fourth Fracture type: closed Metacarpal location: shaft Fracture alignment: nondisplaced Laterality: left Qualified Code(s): S62.355A - Nondisplaced fracture of shaft of fourth metacarpal bone, left hand, initial encounter for closed fracture Rib contusion Qualifiers: Encounter type: initial encounter Laterality: left Qualified Code(s): S20.212A - Contusion of left front wall of thorax, initial encounter Disposition: Home, Self-Care Condition on Discharge: Good Instructions: DI for a Hand Fracture, DI for Rib Contusion, How To Perform RICE (Rest, Ice, Compress, Elevate), DI for Abrasion, Hand Fracture Additional Instructions: Keep area clean and dry around skin tear, clean daily with antibacterial soap and water and over the counter neosporin to the area *Call Dr Lamb office tomorrow for appointment due to fracture of your fourth metacarpal Follow up with Family doctor if needed if no improvement or any worsening of rib pain Straight to ER if any life threatening symptoms Take antibiotics as prescribed Return if needed Prescriptions: cephALEXin [Keflex 500mg Cap] 500 mg PO Q6H 5 Days #20 cap Transmission Status: Received by [id number] Referrals: Oscar Koehler MD [Primary Care Provider] - Blanca Lamb MD [Physician] - (Call office tomorrow for appointment ) Time of Disposition: 19:47 Medical Decision Making - Sanchez Inquiry Pt receiving controlled substance: No Sanchez was queried for this patient: No Vital Signs: 03/30/20 17:41 03/30/20 19:22 Temperature 97.8 F 97.8 F Temperature Source Oral Pulse Rate 89 Pulse Rate [Right Brachial] 89 Respiratory Rate 19 19 Blood Pressure 131/65 Blood Pressure [Right Arm] 131/65 Blood Pressure Mean [Right Arm] 87 Blood Pressure Source [Right Arm] Automatic Cuff Blood Pressure Position [Right Arm] Sitting 02 Sat by Pulse Oximetry 98 Oxygen Delivery Method Room Air - Radiology Data #1 Image(s): Chest (Left ribs) Image Reviewed: Yes I have reviewed radiologist's interpretation Preliminary Findings: No Fracture Seen #2 Image(s): Hand Image Reviewed: Yes I have reviewed radiologist's interpretation Nondisplaced oblique fracture mid shaft 4th metacarpal - Physician Consults Physician Consulted: Zainab Time: 18:30 Reason -: Orthopedic Eval/Care Comment/Response: Spoke with Dr Lamb about fracture and agreed place patient in ulnar gutter splint and call office tomorrow for appointment [facility] [place] HPI - General Stated complaint: AO [id number] @0700 L arm injury, lung pain Time Seen by Provider: 03/30/20 17:57 Mode of Arrival: Ambulatory Source of Information: Patient Limitations: No Limitations Description of Symptoms (Recalled from Triage Doc. by RN): PATIENT STATES SHE WAS GETTING OUT OF BED THIS MORNING WHEN SHE GOT DIZZY AND FELL. C/O LEFT RIB AND LEFT ARM PAIN. SKIN TEAR NOTED TO LEFT FOREARM HEENT Symptoms (Recalled from RN notes): No Resp Symptoms (Recalled from RN notes): No Skin Symptoms (Recalled from RN notes): Yes MS Symptoms (Recalled from RN notes): Yes Functional Status (Recalled from RN notes): WNL - History of Present Illness Provider Complaint: Patient states that she was getting out of bed this morning when she stood up and tripped over shoes in the floor and fell and landed on her left side States that ever since she has been having pain in her left hand/ring finger and her left ribs States that she also has large skin tear on her left arm that she wants to get checked - Related Data Home Medications Medication Instructions Recorded Confirmed Tiotropium [place] [Spiriva 18 mg INHALATION DAILY 04/08/18 10/18/19 18mcg/puff inhaler] Venlafaxine HCl [Venlafaxine HCl 150 mg PO DAILY 04/08/18 10/18/19 ER] risperiDONE [Risperdal 1mg Tablet] 1 mg PO BID 04/08/1810/17
[2020-03-30 19:22] VITALS: BP 131/65; PULSE 89; RESP 19; TEMP 36.6; O2SAT 98
== END 2020-03-30 19:47 | disposition home or self-care (01) ==
PROVIDERS: Emergency Provider Nurse Practitioner; PCP Family Medicine
DX: S62.355A Nondisplaced fracture of shaft of fourth metacarpal bone, left hand, initial encounter for closed fracture (principal); S20.212A Contusion of left front wall of thorax, initial encounter; S51.812A Laceration without foreign body of left forearm, initial encounter; W18.00XA Striking against unspecified object with subsequent fall, initial encounter; Y92.013 Bedroom of single-family (private) house as the place of occurrence of the external cause; R42 Dizziness and giddiness; J44.9 Chronic obstructive pulmonary disease, unspecified; F33.1 Major depressive disorder, recurrent, moderate; Z87.891 Personal history of nicotine dependence; Z79.899 Other long term (current) drug therapy
CPT/HCPCS: 12002; 29125; 71101; 73130; 99203

== ENCOUNTER 2020-03-31 12:22 | Emergency (ER) | payer MEDICARE, SELFPAY ==
[2020-03-31 12:25] VITALS: BP 146/72; PULSE 73; RESP 18; TEMP 36.6; O2SAT 98
--- NOTE | 2020-03-31 12:36 | ECG_ITS ---
APPROVED REPORT Exam: Resting ECG HR:74 bpm ECG Measurements Heart Rate 74 AXES NC 114 P 71 QRSd 62 QRS 82 QT 374 T 65 QTc 415 <Conclusion> Normal sinus rhythm Possible Left atrial enlargement NDST-T Changes Incomplete RBBB Borderline ECG Electronically signed by : Jeromy Pena, 03/31/2020 18:50:31
--- NOTE | 2020-03-31 12:45 | XR_ITS ---
PROCEDURE: XR CHEST 2V CLINICAL HISTORY: PAIN COMPARISON: CT AGCHEST CT angio chest from 04/08/2018 CR XR CHEST 2V from 10/17/2019 DX XR CHEST 2V from 10/18/2019 CR XR RIBS LT MIN 3V W CXR1V from 03/30/2020 FINDINGS: Moderate emphysematous changes are noted with hyperexpansion of the lung melendez and flattening and depression of the hemidiaphragms. There is no acute infiltrate seen. Cardiac size is normal and vascularity is normal. There is stable calcified left hilar nodes and a stable calcified granuloma left midlung field. IMPRESSION: Moderate COPD with evidence of old granulomatous disease, no acute chest pathology noted Dictated by: Dr. Jeff Avery MD 03/31/2020 13:34 Dr. Jeff Avery MD in [place] 03/31/2020 13:34
[2020-03-31 12:51] LABS: Basophils # 0.1 K/mm3 (0-0.2); Basophils % 0.4 % (0.1-2.0); Eosinophils # 0.9 K/mm3 (0.0-0.4); Eosinophils % 5.7 % (0.1-12.0); Hemoglobin 12.1 g/dL (12.2-16.2); Lymphocytes # 1.5 K/mm3 (0.7-4.5); Lymphocytes % 9.6 % (10-50); Mean Corpuscular HGB Conc 32.6 g/dL (31.8-35.4); Mean Corpuscular Hemoglobin 30.3 pg (27.0-31.2); Mean Corpuscular Volume 92.8 fl (81-99); Mean Platelet Volume 8.1 fl (7.4-10.4); Monocytes # 0.7 K/mm3 (0.1-1.0); Monocytes % 4.8 % (1.7-9.3); Neutrophils # 12.2 K/mm3 (1.8-7.8); Neutrophils % 79.4 % (37.0-80.0); Platelet Count 249 K/mm3 (142-424); Red Blood Count 3.98 M/mm3 (4.20-5.40); Red Cell Distribution Width 13.3 % (11.5-17.5); White Blood Count 15.3 K/mm3 (4.8-10.8)
--- NOTE | 2020-03-31 12:54 | PC.NURSE ---
RT at bedside
[2020-03-31 12:55] LABS: MANUAL DIFFERENTIAL MANUAL DIFFERENTIAL (MANUAL DIFF)
[2020-03-31 12:57] LABS: Lactic Acid 3.8 mmol/L (0.7-2.1)
[2020-03-31 12:58] LABS: Alanine Aminotransferase 21 U/L (12-78); Albumin Level 4.4 g/dl (3.5-5.0); Albumin/Globulin Ratio 1.3 (1.1-1.8); Alkaline Phosphatase 66 U/L (38-126); Anion Gap 14.3 mEq/L (5-15); Aspartate Amino Transferase 33 U/L (14-36); Bilirubin,Total 0.9 mg/dl (0.2-1.3); Blood Urea Nitrogen 13 mg/dl (7-17); Calcium 9.2 mg/dl (8.4-10.2); Carbon Dioxide 32 mmol/L (22.0-30.0); Chloride 93 mmol/L (98-107); Creatinine Clearance Estimated 44 mL/min (50-200); Estimated Glomerular Filt Rate 99 ml/min (>60); GFR (African American) 120 ML/MIN (>60); Globulin 3.5 g/dL (1.3-3.2); Glucose 109 mg/dl (74-100); Potassium 4.3 mmoL/L (3.5-5.1); Sodium 135 mmol/L (136-145); Total Protein,Serum 7.9 g/dl (6.3-8.2)
[2020-03-31 13:04] LABS: Eosinophils % 6 % (0-3); Lymphocytes % 15 % (10-50); Monocytes % 4 % (2-9); Neutrophils % 75 % (42-76); Platelet Estimate Normal; RBC Morphology Normal; Total Cells Counted 100
--- NOTE | 2020-03-31 13:04 | PC.NURSE ---
Pt with rad
--- NOTE | 2020-03-31 13:05 | PC.NURSE ---
Pt returned from rad.
[2020-03-31 13:06] VITALS: BP 105/60; PULSE 84; O2SAT 95
[2020-03-31 13:18] LABS: Mycoplasma Pneumo IGM (Rapid) Non-Reactive (Non-Reactiv)
[2020-03-31 13:21] LABS: ABG Base Excess 1.8 mmol/L (-2.4-2.3); ABG HCO3 27.5 mmhg (22.0-26.0); ABG Oxygen Saturation 99 % (90-100); ABG PH 7.35 mmol/L (7.35-7.45); ABG PO2 148.1 mmhg (80-100); ABG TCO2 29.1 mmhg (23-27)
[2020-03-31 13:22] LABS: Oxygen 3LPM %
[2020-03-31 13:23] LABS: Allen's Test ACCEPTABLE; Source R RADIAL
[2020-03-31 13:24] LABS: ABG PCO2 51.5 mmhg (35.0-45.0)
[2020-03-31 13:33] VITALS: BP 110/75; PULSE 74; O2SAT 100
[2020-03-31 13:38] LABS: Microscopic, Urine URINE MICROSCOPIC (MICROSCOPIC)
[2020-03-31 13:40] LABS: Appearance,Urine CLEAR (Clear); Bilirubin,Urine Negative (Negative); Blood, Urine Negative (Negative); Color,Urine YELLOW (Yellow); Glucose,Urine (UA) Negative (Negative); Ketones,Urine Negative (Negative); Leukocyte Esterase,Urine Negative (Negative); Nitrate,Urine Negative (Negative); PH,Urine 6.5 (5.0-8.5); Protein,Urine Negative (Negative); Specific Gravity, Urine 1.015 (1.005-1.030); Urobilinogen,Urine 0.2 EU/dl (0.2)
[2020-03-31 13:53] LABS: Bacteria,Urine 2+ /lpf; Squamous Epithelial Cell,Urine Occasional #/hpf (0-5)
--- NOTE | 2020-03-31 14:00 | CT_ITS ---
PROCEDURE: CT HEAD/BRAIN WO CON CLINICAL INDICATION: CONFUSION Altered mental status COMPARISON: No exams were available for comparison TECHNIQUE: Axial images obtained. All CT scans at the facility use one or more dose reduction, viz: automated exposure control, ma/kV adjustment per patient size (including targeted exams where dose is matched to indication, i.e. head), or iterative reconstruction technique. FINDINGS: No midline shift, mass effect, intracranial hemorrhage, hydrocephalus, or extra-axial fluid collection is evident. There is generalized atrophy with hypoattenuation of the periventricular white matter consistent with microangiopathic changes. The calvarium has an unremarkable appearance. No mastoid effusion. Minimal mucosal thickening right ethmoid sinus IMPRESSION: No acute intracranial finding Dictated by: Oskar Hamilton MD 03/31/2020 14:35 Oskar Hamilton MD in [place] 03/31/2020 14:35
[2020-03-31 14:03] VITALS: BP 121/62; PULSE 74; O2SAT 99
[2020-03-31 15:15] VITALS: BP 106/63; PULSE 78; O2SAT 100
--- NOTE | 2020-03-31 15:34 | HMH.EDGENADL ---
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 Referrals: Oscar Koehler MD [Primary Care Provider] - - Critical Care Critical Care Time: No Attestation: On 03/31/20, the high probability of a clinically significant, sudden or life threatening deterioration of the following system(s) required my full and direct attention, intervention and personal management. The time I documented below is in addition to time spent performing reported procedures but includes the following listed in this critical care notation. Medical Decision Making - Medical Records Medical records reviewed: Yes: I reviewed the patient's medical records. - Sanchez Inquiry Pt receiving controlled substance: No Vital Signs: 03/31/20 12:25 03/31/20 13:06 03/31/20 13:33 Temperature 97.9 F Temperature Source Oral Pulse Rate [Left] 73 84 74 Respiratory Rate 18 Blood Pressure [Right Arm] 146/72 H 105/60 L 110/75 Blood Pressure Mean [Right Arm] 96 75 86 Blood Pressure Source [Right Arm] Automatic Cuff Automatic Cuff Automatic Cuff Blood Pressure Position [Right Arm] Sitting 02 Sat by Pulse Oximetry 98 95 100 Oxygen Delivery Method Nasal Cannula Nasal Cannula Room Air Oxygen Flow Rate (LPM) 3 3 03/31/20 14:03 03/31/20 15:15 Temperature Temperature Source Pulse Rate [Left] 74 78 Respiratory Rate Blood Pressure [Right Arm] 121/62 106/63 L Blood Pressure Mean [Right Arm] 81 77 Blood Pressure Source [Right Arm] Automatic Cuff Automatic Cuff Blood Pressure Position [Right Arm] Sitting Sitting 02 Sat by Pulse Oximetry 99 100 Oxygen Delivery Method Nasal Cannula Room Air Oxygen Flow Rate (LPM) 3 - Lab Data Lab results reviewed: Yes: I reviewed the patient's lab results. Lab Results 03/31/20 12:45: Specimen Source R radial, O2 % 3lpm, ABG pH 7.35, ABG pCO2 51.5 H, ABG pO2 148.1 H, ABG HCO3 27.5 H, ABG Total CO2 29.1 H, ABG O2 Saturation 99, ABG Base Excess 1.8, Oskar Test Acceptable 03/31/20 12:48: WBC 15.3 H, RBC 3.98 L, Hgb 12.1 L, Hct 37.0, MCV 92.8, MCH 30.3, MCHC 32.6, RDW 13.3, Plt Count 249, MPV 8.1, Neut % (Auto) 79.4, Lymph % (Auto) 9.6 L, [place] % (Auto) 4.8, Eos % (Auto) 5.7, Baso % (Auto) 0.4, Neut # (Auto) 12.2 H, Lymph # (Auto) 1.5, [place] # (Auto) 0.7, Eos # (Auto) 0.9 H, Baso # (Auto) 0.1, Total Counted 100, Neutrophils % (Manual) 75, Lymphocytes % (Manual) 15, Monocytes % (Manual) 4, Eosinophils % (Manual) 6 H, Platelet Estimate Normal, RBC Morphology Normal 03/31/20 12:48: Sodium 135 L, Potassium 4.3, Chloride 93 L, Carbon Dioxide 32 H, Anion Gap 14.3, BUN 13, Creatinine 0.60, Estimated Creat Clear 44, Estimated GFR 99, Est GFR ( Amer) 120, Glucose 109 H, Calcium 9.2, Total Bilirubin 0.9, AST 33, ALT 21, Alkaline Phosphatase 66, Total Protein 7.9, Albumin 4.4, Globulin 3.5 H, Albumin/Globulin Ratio 1.3 03/31/20 12:48: Lactate 3.8 H 03/31/20 12:48: Mycoplasma pneumon IgM Non-reactive 03/31/20 13:35: Urine Color Yellow, Urine Appearance Clear, Urine pH 6.5, Ur Specific [place] 1.015, Urine Protein Negative, Urine Glucose (UA) Negative, Urine Ketones Negative, Urine Blood Negative, Urine Nitrate Negative, Urine Bilirubin Negative, Urine Urobilinogen 0.2, Ur Leukocyte Esterase Negative, Urine WBC 3-5, Ur Squamous Epith Cells Occasional, Urine Bacteria 2+ Result diagrams: 03/31/20 12:48 03/31/20 12:48 Orders (Tests/Meds): ORDERS Category Date Time Status Blood Culture Stat Micro 03/31/20 12:48 Received Urine Culture Stat Micro 03/31/20 13:35 Received - CT Data CT Scan: Head Time Received: 15:34 Preliminary Findings: Normal/NAD - ECG Data Tracing #1 I reviewed this ECG and interpreted as documented below: Normal Sinus Rhythm: Yes Medical Decision Narrative: Patient was having some hallucinations she is on several
[2020-03-31 16:19] VITALS: BP 110/65; PULSE 79; RESP 20; TEMP 36.6; O2SAT 100
[2020-03-31 16:48] LABS: Reflex Lactic Add Lactic Reflex
== END 2020-03-31 16:21 | disposition home or self-care (01) ==
PROVIDERS: Emergency Provider Family Medicine; PCP Family Medicine
DX: R44.0 Auditory hallucinations (principal); J44.9 Chronic obstructive pulmonary disease, unspecified; F33.1 Major depressive disorder, recurrent, moderate; Z87.891 Personal history of nicotine dependence; Z79.899 Other long term (current) drug therapy
CPT/HCPCS: 70450; 71046; 80053; 81001; 82803; 83605; 85007; 85025; 86738; 87040; 87086; 93005; 99284

== ENCOUNTER → 2020-04-28 14:05 | Outpatient (CLI) | payer MEDICARE, SELFPAY ==
--- NOTE | 2020-04-28 14:15 | XR_ITS ---
PROCEDURE: XR HAND LT MIN 3V CLINICAL INDICATION: Lt ring finger fx Follow-up fracture COMPARISON: CR XR HAND LT MIN 3V from 03/30/2020 FINDINGS: Oblique fracture involves the mid shaft of the 4th metacarpal. There is mild radial displacement of the distal fracture fragment by 3 mm. Developing callus formation is present. There is mild diffuse osteopenia. IMPRESSION: Healing mildly displaced fracture involves the mid shaft of the 4th metacarpal Dictated by: Oskar Hamilton MD 04/28/2020 14:44 Oskar Hamilton MD in [place] 04/28/2020 14:44
== END ==
PROVIDERS: PCP Family Medicine; Visit Provider Orthopaedic Surgery
DX: S62.309A Unspecified fracture of unspecified metacarpal bone, initial encounter for closed fracture (principal)
CPT/HCPCS: 73130

== ENCOUNTER → 2020-05-18 14:06 | Outpatient (CLI) | payer MEDICARE, SELFPAY ==
--- NOTE | 2020-05-18 14:11 | XR_ITS ---
PROCEDURE: XR HAND LT MIN 3V Referring Doctor: Blanca Lamb Patient Age:70Y CLINICAL INDICATION: LT ring finger FX COMPARISON: CR XR HAND LT MIN 3V from 03/30/2020 CR XR HAND LT MIN 3V from 04/28/2020 FINDINGS: Left hand-three views: AP lateral and oblique There is a healing spiral fracture mid shaft 4th metacarpal. Position appears stable since previous 04/28/2020 left hand study but with progressive healing in the interval the. We again see the radial offset just over 3 mm of the distal fracture fragment on the frontal projection. Near 3 mm the anterior offset distal fracture fragment on lateral view. Good apposition good alignment and as stated there seems to be early healing.. This fracture results in foreshortening of the 4th metacarpal Diffuse demineralization/osteopenia. Perhaps slightly more pronounced today.. Suspect there are some early arthritic changes developing at the PIP and DIP joints. Slight narrowing these joints IMPRESSION: Healing fracture 4th metacarpal. Stable position with early healing and callus formation Dictated by: Jimmy Cooney MD 05/21/2020 19:54 Jimmy Cooney MD in [place] 05/21/2020 19:54
== END ==
PROVIDERS: PCP Family Medicine; Visit Provider Orthopaedic Surgery
DX: S62.355A Nondisplaced fracture of shaft of fourth metacarpal bone, left hand, initial encounter for closed fracture (principal)
CPT/HCPCS: 73130

== ENCOUNTER 2020-07-06 20:43 | Inpatient (IN) | payer MEDICARE, SELFPAY ==
[2020-07-06] VITALS (9 sets, daily range): BP systolic 128–164; BP diastolic 73–96; PULSE 116–129; RESP 16–58; TEMP 36.7–36.9; O2SAT 96–99; BMI 22.6; BMI 23.6; BMI 20.9
--- NOTE | 2020-07-06 20:46 | XR_ITS ---
PROCEDURE: XR CHEST PORTABLE CLINICAL HISTORY: shortness of air Severe shortness of air COMPARISON: CT AGCHEST CT angio chest from 04/08/2018 DX XR CHEST 2V from 10/18/2019 CR XR RIBS LT MIN 3V W CXR1V from 03/30/2020 CR XR CHEST 2V from 03/31/2020 FINDINGS: The cardiomediastinal silhouette and pulmonary vascularity are within normal limits. Rounded soft tissue density is present in the right apex possibly due to skin fold. Apical mass is also consideration. This measures 3.5 cm. In the left lower lobe there is a nodular opacity measuring 2.2 cm and could be due to a nipple artifact or pulmonary nodule. There is an additional nodular opacity in this region at 7 mm. Calcified granuloma is present in the left lower lobe. The no lobar consolidation or collapse. No acute bony abnormalities. IMPRESSION: Right upper and left lower lobe nodular opacities as described above. Neoplasm is considered versus artifact. Suggest upright PA and lateral chest for further evaluation. CT would also be helpful. Dictated by: Oskar Hamilton MD 07/07/2020 05:27 Oskar Hamilton MD in [place] 07/07/2020 05:27
--- NOTE | 2020-07-06 20:48 | ECG_ITS ---
APPROVED REPORT Exam: Resting ECG HR:125 bpm ECG Measurements Heart Rate 125 AXES AK 132 P 81 QRSd 68 QRS 85 QT 306 T 72 QTc 441 Conclusion Sinus tachycardia Right atrial enlargement Nonspecific ST abnormality Abnormal ECG Electronically signed by : Prabhu Eli, 07/07/2020 19:19:17
[2020-07-06 21:07] LABS: Basophils % 0.4 % (0.1-2.0); Eosinophils # 0.3 K/mm3 (0.0-0.4); Eosinophils % 2.2 % (0.1-12.0); Hematocrit 37.1 % (37.0-47.0); Hemoglobin 11.5 g/dL (12.2-16.2); Lymphocytes # 1.3 K/mm3 (0.7-4.5); Lymphocytes % 11.6 % (10-50); Mean Corpuscular Hemoglobin 28.6 pg (27.0-31.2); Mean Corpuscular Volume 92.4 fl (81-99); Mean Platelet Volume 7.9 fl (7.4-10.4); Monocytes # 0.6 K/mm3 (0.1-1.0); Monocytes % 5.3 % (1.7-9.3); Neutrophils # 9.2 K/mm3 (1.8-7.8); Neutrophils % 80.6 % (37.0-80.0); Platelet Count 229 K/mm3 (142-424); Red Blood Count 4.01 M/mm3 (4.20-5.40); Red Cell Distribution Width 13.6 % (11.5-17.5); White Blood Count 11.4 K/mm3 (4.8-10.8)
[2020-07-06 21:09] LABS: Chloride 99 mmol/L (98-107); Potassium 4.3 mmoL/L (3.5-5.1); Sodium 139 mmol/L (136-145)
[2020-07-06 21:12] LABS: Alanine Aminotransferase 19 U/L (12-78); Albumin Level 4.3 g/dl (3.5-5.0); Albumin/Globulin Ratio 1.3 (1.1-1.8); Alkaline Phosphatase 57 U/L (38-126); Anion Gap 8.3 mEq/L (5-15); Aspartate Amino Transferase 28 U/L (14-36); Bilirubin,Total 0.3 mg/dl (0.2-1.3); Blood Urea Nitrogen 20 mg/dl (7-17); Calcium 8.6 mg/dl (8.4-10.2); Carbon Dioxide 36 mmol/L (22.0-30.0); Creatinine Clearance Estimated 48 mL/min (50-200); Estimated Glomerular Filt Rate 62 ml/min (>60); GFR (African American) 75 ML/MIN (>60); Globulin 3.2 g/dL (1.3-3.2); Glucose 140 mg/dl (74-100); Total Protein,Serum 7.5 g/dl (6.3-8.2)
[2020-07-06 21:13] LABS: Lactic Acid 1.5 mmol/L (0.7-2.1)
[2020-07-06 21:17] LABS: C-Reactive Protein 3.5 mg/L (0-4)
--- NOTE | 2020-07-06 21:20 | PC.NURSE ---
0 pt started on BIPAP via RT
[2020-07-06 21:23] LABS: NT Pro Brain Natriuretic Pep. 479 pg/mL (0-125)
[2020-07-06 21:31] LABS: Troponin I < 0.01 ng/ml (0.00-0.034)
[2020-07-06 21:36] LABS: Coronavirus 19 IgG Antibody Negative (Negative); Coronavirus 19 IgM Antibody Negative (Negative)
--- NOTE | 2020-07-06 21:36 | PC.NURSE ---
ABG results PH 7.30, pC02 63.6, pO2 135.2, HCO3 30.8, BE 4.4, ctCO2 32.8, sO2 98.5 ABG taken with Pt. on 2.5 LPM O2 via NC. Results called to Hiram GAUTHIER
[2020-07-06 21:47] LABS: Erythrocyte Sedimentation Rate 38 mm/hr (0-30)
[2020-07-06 21:52] LABS: Procalcitonin 0.043 ng/mL (0.0-2.0)
--- NOTE | 2020-07-06 22:06 | HMH.EDSOB ---
ED Disposition Clinical Impression: Acute exacerbation of chronic obstructive airways disease, Severe sepsis with acute organ dysfunction Respiratory failure with hypercapnia Qualifiers: Chronicity: acute on chronic Qualified Code(s): J96.22 - Acute and chronic respiratory failure with hypercapnia Disposition: Admitted As Inpatient Condition on Discharge: Fair Referrals: Oscar Koehler MD [Primary Care Provider] - - Critical Care Critical Care Time: No Attestation: On 07/06/20, the high probability of a clinically significant, sudden or life threatening deterioration of the following system(s) required my full and direct attention, intervention and personal management. The time I documented below is in addition to time spent performing reported procedures but includes the following listed in this critical care notation. Medical Decision Making - Medical Records Medical records reviewed: Yes: I reviewed the patient's medical records. - Sanchez Inquiry Pt receiving controlled substance: No Vital Signs: 07/06/20 20:50 07/06/20 21:00 07/06/20 21:30 Temperature 98.5 F Temperature Source Oral Pulse Rate Pulse Rate [Right Brachial] 124 H 125 H 129 H Respiratory Rate 42 H 43 H 38 H Blood Pressure [Right Arm] 164/96 H 164/93 H 146/89 H Blood Pressure Mean [Right Arm] 118 116 108 Blood Pressure Source [Right Arm] Automatic Cuff Automatic Cuff Automatic Cuff Blood Pressure Position [Right Arm] Supine Supine 02 Sat by Pulse Oximetry 96 96 96 Oxygen Delivery Method Room Air Nasal Cannula BiPAP Oxygen Flow Rate (LPM) 3 07/06/20 21:43 07/06/20 22:00 07/06/20 22:32 Temperature Temperature Source Pulse Rate 127 H 125 H Pulse Rate [Right Brachial] 120 H Respiratory Rate 44 H Blood Pressure [Right Arm] 137/79 Blood Pressure Mean [Right Arm] 98 Blood Pressure Source [Right Arm] Automatic Cuff Blood Pressure Position [Right Arm] Supine 02 Sat by Pulse Oximetry 96 Oxygen Delivery Method BiPAP Oxygen Flow Rate (LPM) - Lab Data Lab results reviewed: Yes: I reviewed the patient's lab results. Lab Results 07/06/20 20:45: ABG pH 7.30 L 07/06/20 20:45: WBC 11.4 H, RBC 4.01 L, Hgb 11.5 L, Hct 37.1, MCV 92.4, MCH 28.6, MCHC 31.0 L, RDW 13.6, Plt Count 229, MPV 7.9, Neut % (Auto) 80.6 H, Lymph % (Auto) 11.6, [place] % (Auto) 5.3, Eos % (Auto) 2.2, Baso % (Auto) 0.4, Neut # (Auto) 9.2 H, Lymph # (Auto) 1.3, [place] # (Auto) 0.6, Eos # (Auto) 0.3, Baso # (Auto) 0.0 07/06/20 20:45: Sodium 139, Potassium 4.3, Chloride 99, Carbon Dioxide 36 H, Anion Gap 8.3, BUN 20 H, Creatinine 0.90, Estimated Creat Clear 48, Estimated GFR 62, Est GFR ( Amer) 75, Glucose 140 H, Calcium 8.6, Total Bilirubin 0.3, AST 28, ALT 19, Alkaline Phosphatase 57, Troponin I < 0.01, NT-Pro-B Natriuret Pep 479 H, Total Protein 7.5, Albumin 4.3, Globulin 3.2, Albumin/Globulin Ratio 1.3, Procalcitonin 0.043 07/06/20 20:45: Lactate 1.5 07/06/20 20:45: SARS-CoV-2 IgG Ab (Rapid) Negative, SARS-CoV-2 IgM Ab (Rapid) Negative 07/06/20 20:45: ESR 38 H 07/06/20 20:45: C-Reactive Protein 3.5 07/06/20 22:20: Specimen Source Right radial, O2 % 30%, ABG pH 7.35, ABG pCO2 50.8 H, ABG pO2 106.0 H, ABG HCO3 27.2 H, ABG Total CO2 28.7 H, ABG O2 Saturation 98, ABG Base Excess 1.5, Oskar Test Acceptable, Vent Rate Bipap 14/6 Result diagrams: 07/06/20 20:45 07/06/20 20:45 Orders (Tests/Meds): ED MEDICATIONS Generic Name Dose Route Start Last Admin Trade Name Freq PRN Reason Stop Dose Admin Albuterol/Ipratropium 3 ml 07/06/20 20:45 07/06/20 21:42 Albuterol/Ipratropium 3 Ml Neb IH 08/05/20 20:44 3 ml Q1H ARELI Administration ORDERS Category Date Time Status Chest XR -- portable [XR chest portable] Stat Exams 07/06/20 20:46 Taken Troponin I Q3H Lab 07/06/20 23:46 Ordered Troponin I Q3H Lab 07/07/20 02:46 Ordered Blood Culture Stat Micro 07/06/20 20:45 Received - Radiology Data #1 Image(s): Ches
[2020-07-06 22:23] LABS: ABG Base Excess 1.5 mmol/L (-2.4-2.3); ABG HCO3 27.2 mmhg (22.0-26.0); ABG Oxygen Saturation 98 % (90-100); ABG PH 7.35 mmol/L (7.35-7.45); ABG TCO2 28.7 mmhg (23-27)
[2020-07-06 22:27] LABS: Allen's Test Acceptable; Oxygen 30% %; Source Right Radial; Vent Rate BIPAP 14/6
[2020-07-06 22:29] LABS: ABG PCO2 50.8 mmhg (35.0-45.0)
--- NOTE | 2020-07-06 22:54 | PC.NURSE ---
received call back from dr david
--- NOTE | 2020-07-06 22:56 | PC.NURSE ---
patient assigned to 210
--- NOTE | 2020-07-06 23:24 | PC.NURSE ---
called to see whether receiving nurse could take report/patient. was told that room wasn't ready. will wait on return call.
--- NOTE | 2020-07-06 23:44 | PC.NURSE ---
patient up to floor via stretcher.
[2020-07-07] VITALS (15 sets, daily range): BP systolic 122–163; BP diastolic 54–78; PULSE 93–133; RESP 16–47; TEMP 36.4–36.7; O2SAT 91–100; BMI 20.9
[2020-07-07 00:10] LABS: Troponin I < 0.01 ng/ml (0.00-0.034)
--- NOTE | 2020-07-07 00:43 | PC.NURSE ---
She is A&Ox4. She is tachypneic. She is on a bipap FiO2 30%. She reports SOA. Is sitting up in bed. Ambulates with assist x1 r/t SOA. Gait is steady. Denies pain. Tachy on telemetry.
[2020-07-07 03:56] LABS: Troponin I < 0.01 ng/ml (0.00-0.034)
[2020-07-07 06:38] LABS: Chloride 102 mmol/L (98-107); Sodium 138 mmol/L (136-145)
[2020-07-07 06:39] LABS: Potassium 4.9 mmoL/L (3.5-5.1)
[2020-07-07 06:42] LABS: Anion Gap 12.9 mEq/L (5-15); Blood Urea Nitrogen 17 mg/dl (7-17); Calcium 8.5 mg/dl (8.4-10.2); Carbon Dioxide 28 mmol/L (22.0-30.0); Creatinine Clearance Estimated 42 mL/min (50-200); Estimated Glomerular Filt Rate 99 ml/min (>60); GFR (African American) 120 ML/MIN (>60); Glucose 158 mg/dl (74-100); Magnesium 2.1 mg/dl (1.6-2.3)
[2020-07-07 06:48] LABS: Basophils % 0.1 % (0.1-2.0); Eosinophils % 0.1 % (0.1-12.0); Hematocrit 34.2 % (37.0-47.0); Hemoglobin 10.7 g/dL (12.2-16.2); Lymphocytes # 0.6 K/mm3 (0.7-4.5); Lymphocytes % 3.9 % (10-50); Mean Corpuscular HGB Conc 31.3 g/dL (31.8-35.4); Mean Corpuscular Hemoglobin 29.6 pg (27.0-31.2); Mean Corpuscular Volume 94.5 fl (81-99); Mean Platelet Volume 8.2 fl (7.4-10.4); Monocytes # 0.3 K/mm3 (0.1-1.0); Monocytes % 1.7 % (1.7-9.3); Neutrophils # 14.4 K/mm3 (1.8-7.8); Neutrophils % 94.3 % (37.0-80.0); Platelet Count 193 K/mm3 (142-424); Red Blood Count 3.62 M/mm3 (4.20-5.40); Red Cell Distribution Width 13.4 % (11.5-17.5); White Blood Count 15.3 K/mm3 (4.8-10.8)
[2020-07-07 06:57] LABS: MANUAL DIFFERENTIAL MANUAL DIFFERENTIAL (MANUAL DIFF)
--- NOTE | 2020-07-07 07:00 | XR_ITS ---
PROCEDURE: XR CHEST PORTABLE CLINICAL HISTORY: sob COMPARISON: CT AGCHEST CT angio chest from 04/08/2018 CR XR RIBS LT MIN 3V W CXR1V from 03/30/2020 CR XR CHEST 2V from 03/31/2020 CR XR CHEST PORTABLE from 07/06/2020 FINDINGS: The cardiomediastinal silhouette and pulmonary vascularity are within normal limits. There monitor lines overlying the chest. The lungs are clear without infiltrates, suspicious nodules, or pleural effusions. There are calcified left hilar nodes and there is a calcified granuloma left midlung field. No acute bony abnormalities. IMPRESSION: No acute findings. Dictated by: Dr. Jeff Avery MD 07/07/2020 09:40 Dr. Jeff Avery MD in [place] 07/07/2020 09:40
[2020-07-07 07:03] LABS: ABG Base Excess 0.2 mmol/L (-2.4-2.3); ABG HCO3 25.5 mmhg (22.0-26.0); ABG Oxygen Saturation 99 % (90-100); ABG PCO2 45.1 mmhg (35.0-45.0); ABG PH 7.37 mmol/L (7.35-7.45); ABG PO2 228.8 mmhg (80-100); ABG TCO2 26.9 mmhg (23-27)
[2020-07-07 07:04] LABS: Allen's Test ACCEPTABLE; Source R RADIAL
--- NOTE | 2020-07-07 07:16 | HMH.PHAVTE ---
[facility] Pharmacy VTE Monitoring - Patient Demographics Admission date: 07/06/20 Report Date: 07/07/20 Time: 07:17 Allergies/Adverse Reactions: Patient Allergies No Known Allergies Allergy (Verified 04/28/20 14:37) Height: 1.55 m Weight: 50.491 kg Patient Problems: Current Active Problems Acute exacerbation of chronic obstructive airways disease (Acute) Severe sepsis with acute organ dysfunction (Acute) Respiratory failure with hypercapnia (Acute) - VTE Risk Labs: VTE Related Lab Results Hgb 10.7 g/dL (12.2-16.2) L 07/07/20 05:55 Hct 34.2 % (37.0-47.0) L 07/07/20 05:55 Plt Count 193 K/mm3 (142-424) 07/07/20 05:55 BUN 17 mg/dl (7-17) 07/07/20 05:55 Creatinine 0.60 mg/dl (0.52-1.04) D 07/07/20 05:55 Estimated Creat Clear 42 mL/min (50-200) 07/07/20 05:55 VTE Score: 4 VTE Risk Level: Low Risk - Prophylaxis VTE Prophylaxis Ordered?: Yes Types of VTE Prophylaxis: TEDS Knee High Location of Applied Device: Bilateral Lower Extremeties
--- NOTE | 2020-07-07 08:51 | HMH.HP ---
*Admission Date: 07/06/20 <07/07/20 09:02> *Chief complaint: COPD Exacerbation <07/07/20 09:02> *History of present illness: Ms. Gonzales is a 70yo white female with history of Pulmonary Hypertension, Pulmonary Fibrosis, Oxygen-Dependent COPD, Depression with Anxiety, Osteoporosis and Tobacco addiction. She was brought to the [facility] ED for evaluation yesterday after experiencing an acute onset of shortness of breath at home. She denies any recent upper respiratory or associated symptoms and reports that she has otherwise been doing well. Per ER report, she was given a nebs treatment and solumedrol by EMS en route. Upon arrival, CXR showed COPD with bilateral nodular opacities with no acute findings. ABGs indicated a respiratory acidosis and she was placed on bipap with improvement of her symptoms. She was admitted for further evaluation and treatment. This morning, she is feeling better. She was able to eat a small amount of breakfast. She denies any SOB and feels her breathing is back at baseline on 3lpm/NC at rest, although she remains tachypneic. She has not yet been up to the bathroom. Repeat CXR and Echo are pending. <07/07/20 09:21> [facility] History Medical History: Reports:: Chronic Obstructive Pulmonary Disease (COPD), Depression, Home Oxygen, Hypertension, Lung Disease Denies:: Cancer, Diabetes Mellitus Type 1, Diabetes Mellitus Type 2, Internal Pacemaker, MRSA <07/07/20 09:02> *Have you ever received a pneumonia vaccine?: Yes <07/07/20 09:02> *Have you received a flu vaccine this season?: Yes <07/07/20 09:02> Other Medical History: Reports: Arthritis, Cataracts, Osteoporosis <07/07/20 09:21> Laterality Cases: Left: Other (left foot 2007), Bilateral: Cataract <07/07/20 09:21> Other Surgeries: Yes: Other (Cataract.). No: Pacemaker <07/07/20 09:02> Amputation: No <07/07/20 09:02> Fractures: No <NbaJeffa 07/07/20 09:02> - *Social History Last grade of school completed: 11th or 12th <Lorena Arango 07/07/20 09:02> Smoking Status: Former smoker <Jeff Arango07/07/20 09:21> Tobacco Type: cigarettes <Jeff Arangoa 07/07/20 09:02> # Packs/Day (cigarettes): 1 <Lorena Arango 07/07/20 09:02> #Yrs smoked (if former smoker): 25 <Lorena Arango 07/07/20 09:02> Alcohol Intake: never <Lorena Arango 07/07/20 09:02> *Occupational Status:: disabled <Lorena Arango 07/07/20 09:02> Housing: apartment <Lorena Arango 07/07/20 09:02> *Travel in the last 8 weeks: None <Lorena Arango 07/07/20 09:02> - Psychiatric History Pschychiatric History:: Reports:: Anxiety, Depression <Lorena Arango 07/07/20 09:21> Family Hx:: Cancer, Diabetes, Hypertension, Alcoholism <Jeff Arango07/07/20 09:02> Review of Systems - Constitutional Denies fatigue, Denies fever(s), Denies headache(s), Denies weakness <Jeff Arango07/07/20 09:21> - Eyes Denies change in vision <Jeff Arango07/07/20 09:21> - ENT Denies dizziness, Denies headache(s), Denies nasal congestion, Denies sore throat <Jeff Arango07/07/20 09:21> - *Cardiovascular Denies chest pain, Denies leg pain with activity, Denies generalized swelling, Denies lightheadedness <Jeff Arango07/07/20 09:21> - *Respiratory Reports shortness of breath, Reports shortness of breath with activity, Denies chest congestion, Denies cough <Jeff Arango07/07/20 09:21> - *Gastrointestinal Denies abdominal pain, Denies change in stools, Denies loose stools, Denies nausea <Lorena Arango 07/07/20 09:21> - *Genitourinary Denies blood in urine <Lorena Arango 07/07/20 09:21> - *Musculoskeletal Denies muscle weakness <Lorena Arango 07/07/20 09:21> - *Neurologic Denies localized weakness, Denies seizure-like activity <Lorena Arango 07/07/20 09:02> - Hematologic/Lymphatic Denies enlarged lymph nodes <Lorena Arango 07/07/20 09:21> Meds Home Medications Medicat
--- NOTE | 2020-07-07 09:21 | HMH.PHAINT ---
home medication reconciliation completed using list from [facility] office, [facility] pharmacy and pt interview
[2020-07-07 09:28] LABS: Lymphocytes % 2 % (10-50); Monocytes % 1 % (2-9); Neutrophils % 97 % (42-76); Platelet Estimate Normal; RBC Morphology Normal; Total Cells Counted 100
--- NOTE | 2020-07-07 11:01 | HMH.PULMCON ---
*Admission Date: 07/06/20 *Reason for consult:: COPD exacerbation *History of present illness: Ms. Gonzales is 70-year-old female previous smoker more than [id number] smoking history, last moved in December 2019, [place] diagnosed COPD on Symbicort and Spiriva at home along with albuterol as needed, ran out of her albuterol recently, on chronic long-term oxygen therapy at 3 L presented to the emergency department with acute worsening respiratory failure and found to be in COPD exacerbation, initiated on BiPAP and pulmonary was called for further management. Patient on further questioning states her breathing has been gradually getting worse for the last 2 to 3 days not associated with any fevers, worsening cough, increased sputum production. Denies any chest pain or hemoptysis. Denies any sick contacts. [facility] History Medical History: Reports:: Anxiety, Chronic Obstructive Pulmonary Disease (COPD), Depression, Home Oxygen, Hypertension, Lung Disease, Osteoporosis Denies:: Cancer, Diabetes Mellitus Type 1, Diabetes Mellitus Type 2, Internal Pacemaker, MRSA *Have you ever received a pneumonia vaccine?: Yes *Have you received a flu vaccine this season?: Yes Other Medical History: Reports: Arthritis, Cataracts, Osteoporosis Laterality Cases: Left: Other (left foot 2007), Bilateral: Cataract Other Surgeries: Yes: Other (Cataract.). No: Pacemaker Amputation: No Fractures: No - *Social History Last grade of school completed: 11th or 12th Smoking Status: Former smoker Tobacco Type: cigarettes # Packs/Day (cigarettes): 1 #Yrs smoked (if former smoker): 25 Alcohol Intake: never *Occupational Status:: disabled Housing: apartment *Travel in the last 8 weeks: None - Psychiatric History Pschychiatric History:: Reports:: Anxiety, Depression Family Hx:: Cancer, Diabetes, Hypertension, Alcoholism ROS - Cons Reports anorexia, Denies body ache(s), Denies chills - Card Reports shortness of breath with activity, Denies chest pain, Denies chest pain at rest, Denies leg swelling - Resp Respiratory: Yes shortness of breath, No change in phlegm color, Yes chest congestion, Yes cough, Yes non-productive cough, Yes dyspnea, Yes dyspnea on exertion, No excessive phlegm production, No coughing up blood, No pain on inspiration, No pain with cough, No cough with sputum production - GI Gastrointestingal: Reports: system reviewed and no additional complaints, except as docu - [place] Musculoskeletal: Reports system reviewed and no additional complaints, except as docu Meds Home Medications Medication Instructions Recorded Confirmed Type Tiotropium [place] [Spiriva 1 puff INHALATION DAILY 04/08/18 07/07/20 History 18mcg/puff inhaler] Venlafaxine HCl [Venlafaxine HCl 150 mg PO DAILY 04/08/18 07/07/20 History ER] risperiDONE [Risperdal 1mg Tablet] 1 mg PO BID 04/08/18 07/07/20 History Budesonide/Formoterol Fumarate 2 puffs IH BID 10/17/19 07/07/20 History [Symbicort 160-4.5 Mcg Inhaler] Roflumilast [Daliresp] 500 mcg PO DAILY 10/17/19 07/07/20 History Albuterol Sulfate [Ventolin HFA 2 puff IH QIDP PRN 10/18/19 07/07/20 History Inhaler] Ipratropium/Albuterol Sulfate 3 ml IH QIDP PRN 10/18/19 07/07/20 History [Iprat-Albut 0.5-3(2.5) mg/3 ml] Amitriptyline HCl [Elavil 25mg 25 mg PO HS 07/06/20 07/07/20 History tablet] Metoprolol Tartrate [Lopressor 12.5 mg PO BID 07/06/20 07/07/20 History 25mg tablet] predniSONE [Prednisone 5mg 5 mg PO DAILY 07/06/20 07/07/20 History Tab] Alendronate Sodium [Alendronate 35 mg PO WEEKLY 07/07/20 07/07/20 History 35mg Tablet] Buspirone HCl [Buspar 10mg 5 mg PO BID 07/07/20 07/07/20 History tablet] Fluticasone Propion/Salmeterol 1 puff IH BID 07/07/20 07/07/20 History [[place] 500-50 Inhub] Pantoprazole Sodium 40 mg PO DAILY 07/07/20 07/07/20 History Sildenafil Citrate [Revatio] 10 mg PO TID 07/07/20 07/07/20 History Allergies Allergy/AdvReac Type Severity Reaction Status
--- NOTE | 2020-07-07 17:52 | PC.NURSE ---
Pt has been pleasant and cooperative this shift. A&O X4. No complaints of pain. Pt is short of air and breathes through pursed lips with a respiratory rate of 30-40. Lung sounds are diminished throughout. Pt is wearing O2 via NC @ 3 LPM with sats. >90%. Pt ambulates a very short distance to the [facility] and back to bed. With any exertion, pt reports increased SOA and HR increases. O2 sats. will drop to mid-80's and pt takes about 10-15 mins. to recover. Pt voids clear, yellow urine without issue. No BM this shift. Skin is C/D/I with no edema noted. Scattered bruising to BUE. Pt has a poor appetite and only eats about 25-50% of all meals. A sputum specimen cup is at bedside and pt has been instructed to provide a sample. 18 G peripheral IV in the LT AC is patent and SL. 22 G peripheral IV in the LT hand is patent and infusing NS @ 50 ML/HR. Telemetry reveals ST with a heart rate of 110-120. VSS. Call light within reach. Will continue to monitor.
[2020-07-08] VITALS (16 sets, daily range): BP systolic 129–184; BP diastolic 69–99; PULSE 90–130; RESP 16–40; TEMP 36.6–37; O2SAT 91–100; BMI 21.6
--- NOTE | 2020-07-08 05:52 | PC.NURSE ---
No acute changes since previous assessment. Pt kept BiPap in use until this hr and was transitioned to 3LPM NC and tolerating well. Pt continues to be tachypneic, tachycardic, and pursed-lip breathing. Pt was able to sleep well for a few hours during the night. Call light within reach, will continue to monitor.
[2020-07-08 09:04] LABS: Basophils # 0.1 K/mm3 (0-0.2); Basophils % 0.3 % (0.1-2.0); Eosinophils # 0.3 K/mm3 (0.0-0.4); Eosinophils % 1.2 % (0.1-12.0); Hematocrit 33.5 % (37.0-47.0); Hemoglobin 10.8 g/dL (12.2-16.2); Lymphocytes # 2.7 K/mm3 (0.7-4.5); Lymphocytes % 11.9 % (10-50); Mean Corpuscular HGB Conc 32.3 g/dL (31.8-35.4); Mean Corpuscular Hemoglobin 29.4 pg (27.0-31.2); Mean Corpuscular Volume 91.1 fl (81-99); Mean Platelet Volume 8.4 fl (7.4-10.4); Monocytes # 1.2 K/mm3 (0.1-1.0); Monocytes % 5.3 % (1.7-9.3); Neutrophils # 18.2 K/mm3 (1.8-7.8); Neutrophils % 81.3 % (37.0-80.0); Platelet Count 245 K/mm3 (142-424); Red Blood Count 3.67 M/mm3 (4.20-5.40); Red Cell Distribution Width 13.9 % (11.5-17.5); White Blood Count 22.3 K/mm3 (4.8-10.8)
--- NOTE | 2020-07-08 09:07 | P.PN_ITS ---
Internal Medicine - PN: Subj *Date: 07/08/20 *Time: 09:07 Interval history: She is still quite dyspneic especially when out of bed to the bathroom but states she feels a little better. She wore the BiPAP some during the night but did not sleep well. Denies significant cough or chest pain. Appetite remains poor. Exam Vital signs and Labs for Last 24 Hours: Temp Pulse Resp BP Pulse Ox 97.8 F 117 H 20 137/79 91 L 07/08/20 08:00 07/08/20 08:00 07/08/20 08:00 07/08/20 08:00 07/08/20 08:00 Laboratory Results - last 24 hr 07/07/20 05:55: Total Counted 100, Neutrophils % (Manual) 97 H, Lymphocytes % (Manual) 2 L, Monocytes % (Manual) 1 L, Platelet Estimate Normal, RBC Morphology Normal I & O for Last 24 hours: Intake & Output 07/05/20 07/06/20 07/07/20 07/08/20 11:59 11:59 11:59 11:59 Intake Total 743 / 743 1366 / 1366 Output Total 600 / 600 Balance 743 / 743 766 / 766 Weight 111 lb 5 oz 114 lb 5 oz Narrative: She is very alert and oriented. Color is adequate. She is dyspneic with conversation. Pursed lip breathing. Breath sounds are generally diminished throughout both lung melendez. No rales or wheezes. Extremities no edema. Assessment and Plan (1) Acute exacerbation of chronic obstructive airways disease Status: Acute Category: Medical Code(s): J44.1 - Chronic obstructive pulmonary disease with (acute) exacerbation (2) Respiratory failure with hypercapnia Status: Acute Qualifiers: Chronicity: acute on chronic Qualified Code(s): J96.22 - Acute and chronic respiratory failure with hypercapnia Category: Medical Code(s): J96.92 - Respiratory failure, unspecified with hypercapnia (3) Severe sepsis with acute organ dysfunction Status: Acute Category: Medical Code(s): A41.9 - Sepsis, unspecified organism; R65.20 - Severe sepsis without septic shock (4) Pulmonary hypertension Status: Acute Category: Medical Code(s): I27.20 - Pulmonary hypertension, unspecified (5) Severe chronic obstructive pulmonary disease Status: Acute Category: Medical Code(s): J44.9 - Chronic obstructive pulmonary disease, unspecified (6) Chronic respiratory failure Status: Acute Category: Medical Code(s): J96.10 - Chronic respiratory failure, unspecified whether with hypoxia or hypercapnia (7) Anxiety Status: Acute Category: Medical Code(s): F41.9 - Anxiety disorder, un specified - Assessment and plan all Dx Assessment and Plan for all problems:: Pulmonary consult noted. Continue per orders. Repeat ABG this morning.
[2020-07-08 09:15] LABS: MANUAL DIFFERENTIAL MANUAL DIFFERENTIAL (MANUAL DIFF)
[2020-07-08 09:24] LABS: ABG Base Excess 4.4 mmol/L (-2.4-2.3); ABG HCO3 29.8 mmhg (22.0-26.0); ABG Oxygen Saturation 98 % (90-100); ABG PH 7.36 mmol/L (7.35-7.45); ABG PO2 106.2 mmhg (80-100); ABG TCO2 31.4 mmhg (23-27)
[2020-07-08 09:29] LABS: ABG PCO2 53.4 mmhg (35.0-45.0); Allen's Test Acceptable; Source Right Radial
[2020-07-08 09:54] LABS: Eosinophils % 3 % (0-3); Lymphocytes % 12 % (10-50); Monocytes % 5 % (2-9); Neutrophils % 80 % (42-76); Platelet Estimate Normal; RBC Morphology Normal; Total Cells Counted 100
--- NOTE | 2020-07-08 11:09 | PC.NURSE ---
Called ABG to Dr. David [phone]. Dr. david stated he wanted to try pt on vapotherm. Pt is now on vapotherm at 10 and 32%. Will cont to mx.
--- NOTE | 2020-07-08 18:46 | PC.NURSE ---
Pt alert and oriented and able to make needs known. Pt has done well on vapotherm this shift. CB in reach and son at bed side. NAD. Lung sound diminished. BS x 4. VSS. Teds on ble.
--- NOTE | 2020-07-08 20:07 | PC.NURSE ---
Pt's RR was 40 just after the change of shift. Pt had recently been up to [facility] and was c/o SOA. This RN assessed the pt and she was starting to feels little better after resting upon return to the bed. RR was 34 and decreased to 26 after 5 min. Respiratory was notified and breathing treatments given. Lungs diminished, slight expiratory wheeze RML Pt has an occasionally cough, dry and non-productive. HR still tachy at 111 and regular rate. Pt resting comfortably now with RR of 27. Will continue to monitor.
[2020-07-09] VITALS (11 sets, daily range): BP systolic 100–142; BP diastolic 48–74; PULSE 86–120; RESP 18–22; TEMP 36.5–36.8; O2SAT 92–100; BMI 21.5
--- NOTE | 2020-07-09 06:40 | PC.NURSE ---
Pt is A&Ox3 and has slept in short intervals t/o the night. Pt has answered questions appropriately however has also said some off0-hand comments and pulled out 2 IV's this shift d/t These cords were just laying here and I didn't know what to do with them. Pt educated on IV need and usage. Bed alarm also placed on pt d/t pt getting weak and unbalanced and did not call out for assistance to BSC. Vapotherm continues at 20LPM and 32% FiO2 and tolerating well. RR are still elevated but 22-24 after previous note. TEDS in place to BLE. New #22 peripheral IV placed to Right wrist and pt tolerated well. Tight and distant lungs sounds on auscultation. SaO2 96-100% t/o shift. Pt continues to have a dry, weak cough at times. Flushed face appearance. and scattered bruising to BUE. Sinus tach on tele. Call light within reach, will continue to monitor.
[2020-07-09 07:18] LABS: Basophils % 0.2 % (0.1-2.0); Eosinophils # 0.2 K/mm3 (0.0-0.4); Eosinophils % 1.5 % (0.1-12.0); Hemoglobin 10.1 g/dL (12.2-16.2); Lymphocytes # 2.6 K/mm3 (0.7-4.5); Lymphocytes % 18.5 % (10-50); Mean Corpuscular HGB Conc 32.6 g/dL (31.8-35.4); Mean Corpuscular Hemoglobin 29.4 pg (27.0-31.2); Monocytes # 0.8 K/mm3 (0.1-1.0); Monocytes % 5.7 % (1.7-9.3); Neutrophils # 10.6 K/mm3 (1.8-7.8); Neutrophils % 74.1 % (37.0-80.0); Platelet Count 200 K/mm3 (142-424); Red Blood Count 3.45 M/mm3 (4.20-5.40); Red Cell Distribution Width 13.9 % (11.5-17.5); White Blood Count 14.3 K/mm3 (4.8-10.8)
--- NOTE | 2020-07-09 07:56 | HMH.ACPN2 ---
Internal Medicine - PN: Subj *Date: 07/09/20 *Time: 07:56 Interval history: She had some confusion during the night and pulled out her IV twice. She is alert and oriented this morning. She states her breathing feels better. She is still dyspneic with even minimal exertion. Denies chest pain. Exam Vital signs and Labs for Last 24 Hours: Temp Pulse Resp BP Pulse Ox 97.8 F 119 H 19 140/68 92 L 07/09/20 07:38 07/09/20 07:38 07/09/20 07:38 07/09/20 07:38 07/09/20 07:38 Laboratory Results - last 24 hr 07/08/20 08:43: Specimen Source Right radial, O2 % 3lpm nc, ABG pH 7.36, ABG pCO2 53.4 H, ABG pO2 106.2 H, ABG HCO3 29.8 H, ABG Total CO2 31.4 H, ABG O2 Saturation 98, ABG Base Excess 4.4 H, Oskar Test Acceptable 07/08/20 08:46: WBC 22.3 H* D, RBC 3.67 L, Hgb 10.8 L, Hct 33.5 L, MCV 91.1, MCH 29.4, MCHC 32.3, RDW 13.9, Plt Count 245 D, MPV 8.4, Neut % (Auto) 81.3 H, Lymph % (Auto) 11.9, [place] % (Auto) 5.3, Eos % (Auto) 1.2, Baso % (Auto) 0.3, Neut # (Auto) 18.2 H, Lymph # (Auto) 2.7, [place] # (Auto) 1.2 H, Eos # (Auto) 0.3, Baso # (Auto) 0.1, Total Counted 100, Neutrophils % (Manual) 80 H, Lymphocytes % (Manual) 12, Monocytes % (Manual) 5, Eosinophils % (Manual) 3, Platelet Estimate Normal, RBC Morphology Normal 07/09/20 06:38: WBC 14.3 H D, RBC 3.45 L, Hgb 10.1 L, Hct 31.0 L, MCV 90.0, MCH 29.4, MCHC 32.6, RDW 13.9, Plt Count 200, MPV 8.0, Neut % (Auto) 74.1, Lymph % (Auto) 18.5, [place] % (Auto) 5.7, Eos % (Auto) 1.5, Baso % (Auto) 0.2, Neut # (Auto) 10.6 H, Lymph # (Auto) 2.6, [place] # (Auto) 0.8, Eos # (Auto) 0.2, Baso # (Auto) 0.0 I & O for Last 24 hours: Intake & Output 07/06/20 07/07/20 07/08/20 07/09/20 11:59 11:59 11:59 11:59 Intake Total 743 / 743 1366 / 1366 1600 / 1600 Output Total 600 / 600 500 / 500 Balance 743 / 743 766 / 766 1100 / 1100 Weight 111 lb 5 oz 114 lb 5 oz 114 lb 1 oz Microbiology Reports for the Last 24 Hours: Microbiology 07/06/20 20:45 Blood Blood Culture - Preliminary NO GROWTH AFTER 48 HOURS 07/06/20 20:45 Blood Blood Culture - Preliminary NO GROWTH AFTER 48 HOURS Narrative: Alert, good color. Pursed lip breathing. Breath sounds diminished in bases. No rales or wheezes. Abdomen soft, nondistended, nontender. Extremities no edema. Assessment and Plan (1) Acute exacerbation of chronic obstructive airways disease Status: Acute Category: Medical Code(s): J44.1 - Chronic obstructive pulmonary disease with (acute) exacerbation (2) Respiratory failure with hypercapnia Status: Acute Qualifiers: Chronicity: acute on chronic Qualified Code(s): J96.22 - Acute and chronic respiratory failure with hypercapnia Category: Medical Code(s): J96.92 - Respiratory failure, unspecified with hypercapnia (3) Severe sepsis with acute organ dysfunction Status: Acute Category: Medical Code(s): A41.9 - Sepsis, unspecified organism; R65.20 - Severe sepsis without septic shock (4) Pulmonary hypertension Status: Acute Category: Medical Code(s): I27.20 - Pulmonary hypertension, unspecified (5) Severe chronic obstructive pulmonary disease Status: Acute Category: Medical Code(s): J44.9 - Chronic obstructive pulmonary disease, unspecified (6) Chronic respiratory failure Status: Acute Category: Medical Code(s): J96.10 - Chronic respiratory failure, unspecified whether with hypoxia or hypercapnia (7) Anxiety Status: Acute Category: Medical Code(s): F41.9 - Anxiety disorder, unspecified - Assessment and plan all Dx Assessment and Plan for all problems:: She is tolerating Vapotherm. Continue per orders. Check ABG. Up in chair today.
[2020-07-09 10:23] LABS: ABG Base Excess 5.7 mmol/L (-2.4-2.3); ABG HCO3 30.7 mmhg (22.0-26.0); ABG Oxygen Saturation 96 % (90-100); ABG PH 7.39 mmol/L (7.35-7.45); ABG PO2 82.1 mmhg (80-100); ABG TCO2 32.3 mmhg (23-27)
[2020-07-09 10:25] LABS: Allen's Test Acceptable; Source Right Radial
--- NOTE | 2020-07-09 12:16 | PC.NURSE ---
Called abg to Dr Miguel press tender long goods for Dr Koehler and he ordered no changes to vapotherm or care r/t results.
--- NOTE | 2020-07-09 19:10 | PC.NURSE ---
Pt alert and oriented and able to make needs known. NAD at this time. CB in reach. Pt has been up to chair this shift and tolerated well. Vapotherm is in use currently. VSS. NO acute changes this evening.
--- NOTE | 2020-07-09 19:46 | PC.NURSE ---
Sputum collected and sent to lab
[2020-07-10] VITALS (10 sets, daily range): BP systolic 119–148; BP diastolic 62–89; PULSE 16–112; RESP 18–20; TEMP 36.5–36.9; O2SAT 92–99; BMI 22.3
--- NOTE | 2020-07-10 05:53 | PC.NURSE ---
Pt is A&Ox4 and was able to sleep for several hours during the night. Pt has denied any pain, SOA, or dyspnea t/o shift. Lungs clear, diminished bases and continues on Vaoptherm at 20LPM and 32% FiO2 with SaO2 > 96% t/o shift. HR has been more controlled this shift and ranged 78-110 and currently is 80bpm. Sinus tach and NSR on tele. Sputum was collected on prev shift and is pending. TEDS in place to BLE. Pt has called out for staff assistance appropriately. Bruising noted to BUE. 20g peripheral IV is SL. VSS, call light within reach, will continue to monitor.
--- NOTE | 2020-07-10 07:59 | HMH.ACPN2 ---
<Lola Ulloa - Last Filed: 07/10/20 07:59> Internal Medicine - PN: Subj *Date: 07/10/20 *Time: 07:59 Interval history: Awakened for assessment. Patient states she feels okay. She states she is short of breath with exertion. She remains on Vapotherm. She denies chest pain. She set up in a chair yesterday and enjoyed. She does not know how she is eating. She is eating fair. Blood gases yesterday showed a pH of 7.39 PCO2 of 52 PO2 of 82.1 and bicarb of 30.7. Sputum culture results are pending Exam Vital signs and Labs for Last 24 Hours: Temp Pulse Resp BP Pulse Ox 97.8 F 85 19 148/89 H 96 07/10/20 04:00 07/10/20 06:26 07/10/20 04:00 07/10/20 04:00 07/10/20 06:26 Laboratory Results - last 24 hr 07/09/20 07:58: Specimen Source Right radial, O2 % 32% 20l, ABG pH 7.39, ABG pCO2 52.0 H, ABG pO2 82.1, ABG HCO3 30.7 H, ABG Total CO2 32.3 H, ABG O2 Saturation 96, ABG Base Excess 5.7 H, Oskar Test Acceptable I & O for Last 24 hours: Intake & Output 07/07/20 07/08/20 07/09/20 07/10/20 11:59 11:59 11:59 11:59 Intake Total 743 / 743 1366 / 1366 1600 / 1600 960 / 960 Output Total 600 / 600 500 / 500 500 / 500 Balance 743 / 743 766 / 766 1100 / 1100 460 / 460 Weight 111 lb 5 oz 114 lb 5 oz 114 lb 1 oz 118 lb 1.6 oz Microbiology Reports for the Last 24 Hours: Microbiology 07/09/20 15:00 Sputum - Expectorated Sputum Gram Stain - Final - Constitutional no acute distress Comments: Awakened for exam - *Routine Respiratory Exam Present: diminished air movement (Posteriorly) - *Routine Cardiovascular Exam Present: RRR - *Routine Abdominal Exam Present: soft, normoactive bowel sounds. Absent: tenderness - *Routine Extremities Exam Absent: edema, calf tenderness - *Routine Neurological Exam Present: alert, oriented X3 Assessment and Plan (1) Acute exacerbation of chronic obstructive airways disease Status: Acute Category: Medical Code(s): J44.1 - Chronic obstructive pulmonary disease with (acute) exacerbation (2) Respiratory failure with hypercapnia Status: Acute Qualifiers: Chronicity: acute on chronic Qualified Code(s): J96.22 - Acute and chronic respiratory failure with hypercapnia Category: Medical Code(s): J96.92 - Respiratory failure, unspecified with hypercapnia (3) Severe sepsis with acute organ dysfunction Status: Acute Category: Medical Code(s): A41.9 - Sepsis, unspecified organism; R65.20 - Severe sepsis without septic shock (4) Pulmonary hypertension Status: Acute Category: Medical Code(s): I27.20 - Pulmonary hypertension, unspecified (5) Severe chronic obstructive pulmonary disease Status: Acute Category: Medical Code(s): J44.9 - Chronic obstructive pulmonary disease, unspecified (6) Chronic respiratory failure Status: Acute Category: Medical Code(s): J96.10 - Chronic respiratory failure, unspecified whether with hypoxia or hypercapnia (7) Anxiety Status: Acute Category: Medical Code(s): F41.9 - Anxiety disorder, unspecified - Assessment and plan all Dx Assessment and Plan for all problems:: Will need to wean from Vapotherm. Continue with Rocephin, Zithromax, and Xopenex. Encouraged out of bed activity as tolerated <Oscar Koehler - Last Filed: 07/10/20 15:52> Internal Medicine - PN: Subj *Date: 07/10/20 *Time: 15:51 Exam Vital signs and Labs for Last 24 Hours: Temp Pulse Resp BP Pulse Ox 98.0 F 95 H 18 120/68 98 07/10/20 11:56 07/10/20 12:01 07/10/20 11:56 07/10/20 11:56 07/10/20 12:01 I & O for Last 24 hours: Intake & Output 07/08/20 07/09/20 07/10/20 07/11/20 11:59 11:59 11:59 11:59 Intake Total 1366 / 1366 1600 / 1600 1320 / 1320 Output Total 600 / 600 500 / 500 500 / 500 Balance 766 / 766 1100 / 1100 820 / 820 Weight 114 lb 5 oz 114 lb 1 oz 118 lb 1.6 oz Microbiology Reports for the Last 24 Hours: Microbiology 07/09/20 15:0
--- NOTE | 2020-07-10 10:51 | HMH.PULMPN ---
Internal Medicine - PN: Subj *Date: 07/10/20 *Time: 10:51 Interval history: No acute events overnight. Patient over the weekend has varied oxygen requirements, intermittently on BiPAP and oxygen requirements were escalated to high flow. However this morning patient was on 20 L 32% high flow saturating 97%. Exam - Constitutional Constitutional:: no acute distress, comfortable, healthy appearing - HENMT Exam HENMT: normocephalic, atraumatic - Eye Exam Eyes:: normal appearance both eyes and related structures - Neck Exam Neck:: normal visual inspection, thyroid normal, no lymphadenopathy - Respiratory Exam Respiratory:: able to speak in complete sentences, no respiratory distress, normal respiratory effort, wheezing - Cardiovascular Exam Cardiac:: S1, S2 - GI Exam GI:: soft, no hepatosplenomegaly - Skin Exam Skin: warm, no rash - Neurological Exam Neurological: alert, awake - Extremities Exam Extremities: no cyanosis, no clubbing, no edema Assessment and Plan (1) Acute exacerbation of chronic obstructive airways disease Status: Acute Category: Medical Code(s): J44.1 - Chronic obstructive pulmonary disease with (acute) exacerbation (2) Respiratory failure with hypercapnia Status: Acute Qualifiers: Chronicity: acute on chronic Qualified Code(s): J96.22 - Acute and chronic respiratory failure with hypercapnia Category: Medical Code(s): J96.92 - Respiratory failure, unspecified with hypercapnia (3) Severe sepsis with acute organ dysfunction Status: Acute Category: Medical Code(s): A41.9 - Sepsis, unspecified organism; R65.20 - Severe sepsis without septic shock (4) Pulmonary hypertension Status: Acute Category: Medical Code(s): I27.20 - Pulmonary hypertension, unspecified (5) Severe chronic obstructive pulmonary disease Status: Acute Category: Medical Code(s): J44.9 - Chronic obstructive pulmonary disease, unspecified (6) Chronic respiratory failure Status: Acute Category: Medical Code(s): J96.10 - Chronic respiratory failure, unspecified whether with hypoxia or hypercapnia (7) Anxiety Status: Acute Category: Medical Code(s): F41.9 - Anxiety disorder, unspecified - Assessment and plan all Dx Assessment and Plan for all problems:: #COPD exacerbation: #Acute on chronic hypoxic respiratory failure: More than [id number] smoking history, last smoked in December 2019, diagnosed COPD using Symbicort Spiriva along with albuterol inhaler, recently ran out of albuterol inhaler presented to the hospital with acute worsening hypoxic respiratory failure. ABG on admission showed mild hypercarbia with 7.35 PCO2 50.8, patient was placed on BiPAP and blood gas improved. Patient home medications also include sildenafil-unclear reason at this point of time Last hospital admission or received antibiotic episode was in October 2019 CXR on admission did not show any acute pulmonary infiltrates. No suspicious pulmonary nodules found except for left calcified granuloma. COVID-19 serology negative. Blood cultures pending. Patient's acute on chronic hypoxic respiratory failure is likely from COPD exacerbation. Interval update: Patient over the weekend has varied oxygen requirements, at one point needing BiPAP however on reviewing ABG patient noted to have mild hypercarbia with the lowest pH documented 7.35. Patient this morning saturating 97% on 20 L 32% high flow nasal cannula. Patient appears comfortable and not in any respiratory distress. Sputum from 07/09/2020 showed moderate budding yeast and gram-positive diplococci Auscultation still revealed mild expiratory wheeze. Plan: -Urinalysis to evaluate for any fungal colonization and if so patient will be treated for fluconazole for 7 days especially in the setting of sputum showing hyphae - Serum total IgE and aspergillus IgE -Continue DuoNebs every 6 hours along with budesonide nebulizer every 12 hours, patient can be discharged on S
--- NOTE | 2020-07-10 15:42 | PC.NURSE ---
PT IS RESTING IN BED. NO COMPLAINTS OF DISCOMFORT. O2 SATURATION 92-95% ON 2 L NC. LUNG SOUNDS DIMINISHED. ABDOMEN SOFT/NON TENDER. GETS UP TO THE BSC WITH 1 ASSIST. EATING AND DRINKING FAIR. PT IS HOPING SHE WILL GET TO GO HOME. VSS. WILL CONTINUE TO MONITOR.
[2020-07-11] VITALS: PULSE 100
[2020-07-11 03:13] LABS: Microscopic, Urine URINE MICROSCOPIC (MICROSCOPIC)
[2020-07-11 03:29] LABS: Appearance,Urine CLEAR (Clear); Bilirubin,Urine Negative (Negative); Blood, Urine Negative (Negative); Color,Urine YELLOW (Yellow); Glucose,Urine (UA) Negative (Negative); Ketones,Urine Negative (Negative); Leukocyte Esterase,Urine Negative (Negative); Nitrate,Urine Negative (Negative); Protein,Urine Negative (Negative); Urobilinogen,Urine 0.2 EU/dl (0.2)
[2020-07-11 03:31] LABS: Renal Epithelial Cells,Urine Occasional #/lpf (0)
[2020-07-11 04:00] VITALS: BP 156/70; PULSE 90; PULSE 93; RESP 24; TEMP 36.7; O2SAT 96
--- NOTE | 2020-07-11 04:22 | PC.NURSE ---
Pt has rested majority of this shift. Pt is A&O x4. Pt gets up to the BSC w/ standby assist. Urine specimen received this shift and sent to lab per MD Walter. Lung sounds are diminished with expiratory wheezing scattered t/o. Pt continues to be on 2-3 L NC and is tolerating well. No other acute changes or complaints at this time. Will continue to monitor.
[2020-07-11 05:00] VITALS: BMI 22.2
[2020-07-11 06:28] VITALS: PULSE 98; PULSE 99; O2SAT 98
[2020-07-11 08:00] VITALS: BP 145/65; PULSE 100; PULSE 99; RESP 16; TEMP 36.6; O2SAT 98
--- NOTE | 2020-07-11 08:44 | HMH.ACPN2 ---
<Lola Ulloa - Last Filed: 07/11/20 08:44> Internal Medicine - PN: Subj *Date: 07/11/20 *Time: 08:44 Interval history: short of breath with exertion. States she is not coughing. Denies chest pain. Is up to bedside commode and to the chair. She is eating a little bit better. She denies nausea. She is voiding QS. She would like to go home. Sputum and urine cultures are pending. Exam Vital signs and Labs for Last 24 Hours: Temp Pulse Resp BP Pulse Ox 98.0 F 99 H 24 156/70 H 98 07/11/20 04:00 07/11/20 06:28 07/11/20 04:00 07/11/20 04:00 07/11/20 06:28 Laboratory Results - last 24 hr 07/11/20 03:07: Urine Color Yellow, Urine Appearance Clear, Urine pH 7.0, Ur Specific [place] 1.020, Urine Protein Negative, Urine Glucose (UA) Negative, Urine Ketones Negative, Urine Blood Negative, Urine Nitrate Negative, Urine Bilirubin Negative, Urine Urobilinogen 0.2, Ur Leukocyte Esterase Negative, Urine WBC 5-10, Ur Renal Epithelial Cell Occasional I & O for Last 24 hours: Intake & Output 07/08/20 07/09/20 07/10/20 07/11/20 11:59 11:59 11:59 11:59 Intake Total 1366 / 1366 1600 / 1600 1320 / 1320 480 / 480 Output Total 600 / 600 500 / 500 500 / 500 250 / 250 Balance 766 / 766 1100 / 1100 820 / 820 230 / 230 Weight 114 lb 5 oz 114 lb 1 oz 118 lb 1.6 oz 118 lb - Constitutional no acute distress - *Routine Respiratory Exam Present: crackles (Few fine bibasilar crackles) - *Routine Cardiovascular Exam Present: RRR - *Routine Abdominal Exam Present: soft, normoactive bowel sounds. Absent: tenderness, distended - *Routine Extremities Exam Present: MAKENZIE stockings. Absent: edema, calf tenderness - *Routine Neurological Exam Present: alert (Seems oriented) Assessment and Plan (1) Acute exacerbation of chronic obstructive airways disease Status: Acute Category: Medical Code(s): J44.1 - Chronic obstructive pulmonary disease with (acute) exacerbation (2) Respiratory failure with hypercapnia Status: Acute Qualifiers: Chronicity: acute on chronic Qualified Code(s): J96.22 - Acute and chronic respiratory failure with hypercapnia Category: Medical Code(s): J96.92 - Respiratory failure, unspecified with hypercapnia (3) Severe sepsis with acute organ dysfunction Status: Acute Category: Medical Code(s): A41.9 - Sepsis, unspecified organism; R65.20 - Severe sepsis without septic shock (4) Pulmonary hypertension Status: Acute Category: Medical Code(s): I27.20 - Pulmonary hypertension, unspecified (5) Severe chronic obstructive pulmonary disease Status: Acute Category: Medical Code(s): J44.9 - Chronic obstructive pulmonary disease, unspecified (6) Chronic respiratory failure Status: Acute Category: Medical Code(s): J96.10 - Chronic respiratory failure, unspecified whether with hypoxia or hypercapnia (7) Anxiety Status: Acute Category: Medical Code(s): F41.9 - Anxiety disorder, unspecified - Assessment and plan all Dx Assessment and Plan for all problems:: Continue with current pulmonary care. Continue with out of bed activity. Probably home soon. <Oscar Koehler - Last Filed: 07/11/20 13:16> Internal Medicine - PN: Subj *Date: 07/11/20 *Time: 13:14 Exam Vital signs and Labs for Last 24 Hours: Temp Pulse Resp BP Pulse Ox 98.0 F 94 H 17 155/67 H 94 L 07/11/20 12:00 07/11/20 12:00 07/11/20 12:00 07/11/20 12:00 07/11/20 12:00 Laboratory Results - last 24 hr 07/11/20 03:07: Urine Color Yellow, Urine Appearance Clear, Urine pH 7.0, Ur Specific [place] 1.020, Urine Protein Negative, Urine Glucose (UA) Negative, Urine Ketones Negative, Urine Blood Negative, Urine Nitrate Negative, Urine Bilirubin Negative, Urine Urobilinogen 0.2, Ur Leukocyte Esterase Negative, Urine WBC 5-10, Ur Renal Epithelial Cell Occasional I & O for Last 24 hours: Intake & Output 07/09/20 07/10/20 07/11/20 07/12/20 11:59 11:59 11:5
--- NOTE | 2020-07-11 10:01 | HMH.PULMPN ---
Internal Medicine - PN: Subj *Date: 07/11/20 *Time: 10:01 Interval history: No acute respiratory events overnight. Patient still complains of exertional dyspnea however states that her symptoms are at baseline Exam - Constitutional Constitutional:: no acute distress, comfortable - HENMT Exam HENMT: normocephalic, atraumatic - Eye Exam Eyes:: normal appearance both eyes and related structures - Neck Exam Neck:: normal visual inspection, thyroid normal, no lymphadenopathy - Respiratory Exam Respiratory:: able to speak in complete sentences, no respiratory distress Comments: Bilateral distant breath sounds no wheeze heard - Cardiovascular Exam Cardiac:: regular rhythm, S1, S2 - GI Exam GI:: soft, no hepatosplenomegaly - Skin Exam Skin: warm - Neurological Exam Neurological: alert, awake, oriented X3 - Extremities Exam Extremities: no cyanosis, no clubbing, no edema - Psychiatric Exam Psychiatric: normal affect Assessment and Plan (1) Acute exacerbation of chronic obstructive airways disease Status: Acute Category: Medical Code(s): J44.1 - Chronic obstructive pulmonary disease with (acute) exacerbation (2) Respiratory failure with hypercapnia Status: Acute Qualifiers: Chronicity: acute on chronic Qualified Code(s): J96.22 - Acute and chronic respiratory failure with hypercapnia Category: Medical Code(s): J96.92 - Respiratory failure, unspecified with hypercapnia (3) Severe sepsis with acute organ dysfunction Status: Acute Category: Medical Code(s): A41.9 - Sepsis, unspecified organism; R65.20 - Severe sepsis without septic shock (4) Pulmonary hypertension Status: Acute Category: Medical Code(s): I27.20 - Pulmonary hypertension, unspecified (5) Severe chronic obstructive pulmonary disease Status: Acute Category: Medical Code(s): J44.9 - Chronic obstructive pulmonary disease, unspecified (6) Chronic respiratory failure Status: Acute Category: Medical Code(s): J96.10 - Chronic respiratory failure, unspecified whether with hypoxia or hypercapnia (7) Anxiety Status: Acute Category: Medical Code(s): F41.9 - Anxiety disorder, unspecified - Assessment and plan all Dx Assessment and Plan for all problems:: #COPD exacerbation: #Acute on chronic hypoxic respiratory failure: More than [id number] smoking history, last smoked in December 2019, diagnosed COPD using Symbicort Spiriva along with albuterol inhaler, recently ran out of albuterol inhaler presented to the hospital with acute worsening hypoxic respiratory failure. ABG on admission showed mild hypercarbia with 7.35 PCO2 50.8, patient was placed on BiPAP and blood gas improved. Patient home medications also include sildenafil-unclear reason at this point of time Last hospital admission or received antibiotic episode was in October 2019 CXR on admission did not show any acute pulmonary infiltrates. No suspicious pulmonary nodules found except for left calcified granuloma. COVID-19 serology negative. Blood cultures pending. Patient's acute on chronic hypoxic respiratory failure is likely from COPD exacerbation. Interval update: Patient respiratory status continued to improve, this morning on 2 L nasal cannula saturating 98%. Patient resting comfortably in bed with no respiratory distress, able to speak in complete sentences. Patient will still complains of exertional dyspnea however states that her symptoms are at baseline. Patient sputum also showed hyphae with yeast, however given baseline respiratory status and normal UA this is likely of a contaminant and will opt for clinical follow-up and with serum total IgE and Aspergillus IgE Plan: -Patient respiratory status is baseline today, can be discharged from pulmonary standpoint -Patient should be discharged on triple inhaler therapy. Patient is following with outside cartography teacher, her current appointment is scheduled for August 07, 2020. patient also st
[2020-07-11 12:00] VITALS: BP 155/67; PULSE 86; PULSE 94; RESP 17; TEMP 36.7; O2SAT 94
[2020-07-11 13:28] VITALS: PULSE 93; PULSE 94
--- NOTE | 2020-07-11 20:49 | PC.NURSE ---
PATIENT A&O X4, LUNGS: INSPIRATORY AND EXPIRATORY WHEEZING HEARD THROUGHOUT. PULSES EQUAL. THIS RN PROVIDED D/C INSTRUCTIONS ON PURSE LIPS BREATHING, PATIENT VERBALIZED AN UNDERSTANDING. THIS RN INFORMED PATIENT AND SON OF PFT AND FOLLOW UP WITH DR. CORDERO. PATIENT AND HER SON VERBALIZED AN UNDERSTANDING. NO OTHER CONCERNS AT D/C.
--- NOTE | 2020-07-12 20:38 | HMH.DCSUM ---
General - General Admission date:: 07/06/20 <Oscar Koehler - 07/30/20 10:36> 07/06/20 <Ulloa,Lola - 07/12/20 21:09> Discharge date: 07/11/20 <Lola Ulloa - 07/12/20 21:09> HPI HPI: Ms. Gonzales is a 70yo white female with history of Pulmonary Hypertension, Pulmonary Fibrosis, Oxygen-Dependent COPD, Depression with Anxiety, Osteoporosis and Tobacco addiction. She was brought to the [facility] ED for evaluation after experiencing an acute onset of shortness of breath at home. She denied any recent upper respiratory or associated symptoms and reported that she had otherwise been doing well. Per ER report, she was given a nebs treatment and solumedrol by EMS en route. Upon arrival, CXR showed COPD with bilateral nodular opacities with no acute findings. ABGs indicated a respiratory acidosis and she was placed on bipap with improvement of her symptoms. She was admitted for further evaluation and treatment. The following morning, she was feeling better. She was able to eat a small amount of breakfast. She denied any SOB and felt her breathing was back at baseline on 3lpm/NC at rest, although she remained tachypneic. She had not yet been up to the bathroom. Repeat CXR and Echo were pending. <Lola Ulloa - 07/12/20 21:09> Hospital Course Hospital Course: Patient initially was on CPAP. Her blood gas did improve with this. And she was weaned to 3 L of nasal oxygen. To note she had been followed by administrative staff supervisor in [facility] and had recently started on sildenafil for presumed pulmonary hypertensiion. Patient was seen in consultation by pulmonology, Dr. Walter . He felt the x-ray did not show any acute pulmonary infiltrates and no suspicious pulmonary nodules except for left calcified granuloma. He felt the patient had acute on chronic hypoxia respiratory failure likely from COPD exacerbation. He recommended to continue with duo nebs every 6 hours with budesonide nebs every 12 hours and discharged home on Spiriva Respimat and Symbicort. He also recommended to continue with ceftriaxone and Zithromax and to de-escalate steroids to prednisone 40 mg daily to complete a total 5-day course. Patient had repeat ABGs with shortness of breath with PCO2 elevated at 53 and a pH of 7.36. She was given a trial with Vapotherm with improved breathing. She did have some confusion during 1 night. She was alert and oriented the following day. She gradually improved and felt her breathing was much better. She was still dyspneic with even minimal exertion. She was getting up in a chair and enjoying. Repeat blood gases showed a pH of 7.39 PCO2 52 PO2 of 82.1 and bicarb of 30.7. She was weanied from the vapotherm and continued with Rocephin, Zithromax, and Xopenex. She did continue to be short of breath with exertion. At this point on 07/11/2020 she was wanting to go home and was felt to have reached her maximum hospital benefit. She was discharged home on tapering schedule of prednisone. Plan was to keep her appointment with her current pulmonology in [facility]. She was to follow-up with Dr. Koehler on 07/11/2020. Test specifics as per Data; ECHO pending at time of this report. Final sputum results also pending. <Lola Ulloa - 07/12/20 21:09> Objective Vital signs: Temp Pulse Resp BP Pulse Ox 98.0 F 94 H 17 155/67 H 94 L 07/11/20 12:00 07/11/20 13:28 07/11/20 12:00 07/11/20 12:00 07/11/20 12:00 <Oscar Koehler - 07/30/20 10:36> Temp Pulse Resp BP Pulse Ox 98.0 F 94 H 17 155/67 H 94 L 07/11/20 12:00 07/11/20 13:28 07/11/20 12:00 07/11/20 12:00 07/11/20 12:00 <Lola Ulloa - 07/12/20 21:09> Narrative: Exam Vital signs and Labs for Last 24 Hours: Temp Pulse Resp BP Pulse Ox 98.0 F 99 H 24 156/70 H 98 07/11/20 04:00 07/11/20 06:28 07/11/20 04:00 07/11/20 04:00 07/11/20 06:28 Laboratory Results - last 24 hr 07/11/20 03:07:
[2020-07-13 22:57] LABS: Immunoglobulin E, Total 189 IU/mL (6-495)
[2020-07-14 17:19] LABS: M003-IgE Aspergillus fumigatus <0.10 kU/L (Class 0)
== END 2020-07-11 15:20 | disposition home or self-care (01) | DRG 189 ==
LOC: ER 20:59 → 2ND 22:57
PROVIDERS: Internal Medicine Pulmonary Disease; Admitting Provider Family Medicine; Emergency Provider Emergency Medicine; PCP Family Medicine; Visit Provider Family Medicine
DX: J96.22 Acute and chronic respiratory failure with hypercapnia (principal); R65.20 Severe sepsis without septic shock; J44.1 Chronic obstructive pulmonary disease with (acute) exacerbation; Z99.81 Dependence on supplemental oxygen; I27.20 Pulmonary hypertension, unspecified; Z79.51 Long term (current) use of inhaled steroids; Z79.52 Long term (current) use of systemic steroids; Z79.899 Other long term (current) drug therapy; Z87.891 Personal history of nicotine dependence; M81.0 Age-related osteoporosis without current pathological fracture
CPT/HCPCS: 36415; 71045; 80048; 80053; 81001; 82785; 82803; 83605; 83735; 83880; 84145; 84484; 85007; 85025; 85651; 86003; 86140; 86328; 87040; 87070; 87102; 87205; 87206; 93005; 93306; 94640; 94660; 94760; 94761; 96365; 96375; 99282; J0456

== ENCOUNTER 2020-09-12 02:16 | Inpatient (IN) | payer MEDICARE, SELFPAY ==
[2020-09-12] VITALS (12 sets, daily range): BP systolic 104–169; BP diastolic 65–95; PULSE 83–143; RESP 16–34; TEMP 36.4–36.7; O2SAT 92–99; BMI 22.1; BMI 20.7
--- NOTE | 2020-09-12 02:18 | XR_ITS ---
PROCEDURE: XR CHEST PORTABLE CLINICAL HISTORY: SOA COMPARISON: CT [facility] CT angio chest from 04/08/2018 CR XR CHEST 2V from 03/31/2020 CR XR CHEST PORTABLE from 07/06/2020 CR XR CHEST PORTABLE from 07/07/[address] ANGIO CHEST from 09/12/2020 FINDINGS: The cardiomediastinal silhouette and pulmonary vascularity are within normal limits. COPD changes. Ill-defined opacity in the right lung base at 2.8 by 1.4 cm. May be due to an area infiltrate or developing nodule. Chest CT may provide further evaluation. Old granulomatous disease. Biapical scarring. No acute bony abnormalities. IMPRESSION: COPD with patchy infiltrate versus developing nodule in the right lung base Dictated by: Oskar Hamilton MD 09/12/2020 06:25 Oskar Hamilton MD in [place] 09/12/2020 06:25
--- NOTE | 2020-09-12 02:30 | ECG_ITS ---
APPROVED REPORT Exam: Resting ECG HR:128 bpm ECG Measurements Heart Rate 128 AXES ME 122 P 80 QRSd 60 QRS 80 QT 314 T 59 QTc 458 Conclusion Sinus tachycardia with premature atrial complexes Increased R/S ratio in V1, consider early transition or posterior infarct Abnormal ECG Electronically signed by : Prabhu Eli, 09/12/2020 07:07:45
[2020-09-12 02:37] LABS: ABG Base Excess 3.3 mmol/L (-2.4-2.3); ABG HCO3 28.1 mmhg (22.0-26.0); ABG Oxygen Saturation 96 % (90-100); ABG PCO2 46.5 mmhg (35.0-45.0); ABG PO2 82.3 mmhg (80-100); ABG TCO2 29.5 mmhg (23-27)
[2020-09-12 02:38] LABS: Allen's Test Acceptable; Oxygen 2lpm nc %; Source Left Radial
[2020-09-12 02:46] LABS: Adenovirus,PCR Not Detected (NotDetected); Bordetella Pertussis Not Detected (NotDetected); Chlamydophila Pneumoniae, PCR Not Detected (NotDetected); Coronavirus 229E Not Detected (NotDetected); Coronavirus NL63 Not Detected (NotDetected); Coronavirus OC43 Not Detected (NotDetected); Coronovirus HKU1,PCR Not Detected (NotDetected); Human Metapneumovirus Not Detected (NotDetected); Influenza A, PCR Not Detected (NotDetected); Influenza AH1, 2009 Not Detected (NotDetected); Influenza AH1, PCR Not Detected (NotDetected); Influenza AH3,PCR Not Detected (NotDetected); Influenza B, PCR Not Detected (NotDetected); Mycoplasma Pneumoniae, PCR Not Detected (NotDetected); Parainfluenza 1, PCR Not Detected (NotDetected); Parainfluenza 2, PCR Not Detected (NotDetected); Parainfluenza 3, PCR Not Detected (NotDetected); Parainfluenza 4, PCR Not Detected (NotDetected); Respiratory Syncytial Virus Not Detected (NotDetected); Rhinovirus/Enterovirus Not Detected (NotDetected)
[2020-09-12 02:55] LABS: Chloride 95 mmol/L (98-107); Potassium 3.6 mmoL/L (3.5-5.1); Sodium 133 mmol/L (136-145)
[2020-09-12 02:57] LABS: Basophils % 0.1 % (0.1-2.0); Eosinophils # 0.1 K/mm3 (0.0-0.4); Eosinophils % 0.9 % (0.1-12.0); Hematocrit 30.8 % (37.0-47.0); Hemoglobin 10.4 g/dL (12.2-16.2); Lymphocytes % 11.6 % (10-50); Mean Corpuscular HGB Conc 33.8 g/dL (31.8-35.4); Mean Corpuscular Hemoglobin 29.6 pg (27.0-31.2); Mean Corpuscular Volume 87.7 fl (81-99); Mean Platelet Volume 7.9 fl (7.4-10.4); Monocytes # 0.7 K/mm3 (0.1-1.0); Monocytes % 8.3 % (1.7-9.3); Neutrophils # 6.7 K/mm3 (1.8-7.8); Neutrophils % 79.1 % (37.0-80.0); Platelet Count 214 K/mm3 (142-424); Red Blood Count 3.51 M/mm3 (4.20-5.40); Red Cell Distribution Width 14.8 % (11.5-17.5); White Blood Count 8.4 K/mm3 (4.8-10.8)
[2020-09-12 02:58] LABS: Anion Gap 11.6 mEq/L (5-15); Blood Urea Nitrogen 27 mg/dl (7-17); Calcium 8.7 mg/dl (8.4-10.2); Carbon Dioxide 30 mmol/L (22.0-30.0); Creatinine Clearance Estimated 44 mL/min (50-200); Estimated Glomerular Filt Rate 83 ml/min (>60); GFR (African American) 100 ML/MIN (>60); Glucose 105 mg/dl (74-100); Lactic Acid 1.2 mmol/L (0.7-2.1)
--- NOTE | 2020-09-12 03:01 | CT_ITS ---
PROCEDURE: CT ANGIO CHEST CLINCIAL INDICATION: ACUTE SOA COPD. Acute shortness of air COMPARISON: CT [facility] CT angio chest from 04/08/2018 TECHNIQUE: IV Contrast: 70ML Isovue 370 Axial images obtained with sagittal and coronal reformats. All CT scans at the facility use one or more dose reduction, viz: automated exposure control, ma/kV adjustment per patient size (including targeted exams where dose is matched to indication, i.e. head), or iterative reconstruction technique. FINDINGS: No evidence of pulmonary embolus, aortic aneurysm, or aortic dissection. There are few small mediastinal lymph nodes. Pulmonary fibrosis with with extensive centrilobular emphysematous changes.. Scattered areas of scarring. Biapical nodularity consistent with scarring not significantly changed. There is a peripheral opacity in the right middle lobe laterally measuring 2 x 2 cm and may be due to an area of dense consolidation. This corresponds to the radiographic abnormality. There is mild diffuse bronchial thickening. Trace amount of secretions within the tracheobronchial tree with minor bronchial filling subpleural consolidation present in the left lung base laterally and in the left lower lobe posteriorly Fatty liver. IMPRESSION: 1. No evidence of pulmonary embolus. 2. Pulmonary fibrosis with centrilobular emphysema with diffuse bronchial thickening and small areas of peripheral consolidation in the left lower lobe and right middle lobe which may be infectious/inflammatory. Suggest 3 month follow-up to confirm resolution of the right middle lobe opacity. Dictated by: Oskar Hamilton MD 09/12/2020 06:58 Oskar Hamilton MD in [place] 09/12/2020 06:58
[2020-09-12 03:08] LABS: NT Pro Brain Natriuretic Pep. 114 pg/mL (0-125)
[2020-09-12 03:18] LABS: Troponin I 0.01 ng/ml (0.00-0.034)
[2020-09-12 03:29] LABS: Coronavirus 19 IgG Antibody Negative (Negative); Coronavirus 19 IgM Antibody Negative (Negative)
[2020-09-12 03:30] LABS: Procalcitonin 0.118 ng/mL (0.0-2.0)
--- NOTE | 2020-09-12 04:02 | HMH.EDSOB ---
ED Disposition Clinical Impression: Pneumonia due to COVID-19 virus, Acute exacerbation of chronic obstructive airways disease Disposition: Admitted As Inpatient Condition on Discharge: Fair Referrals: Oscar Koehler MD [Primary Care Provider] - - Critical Care Critical Care Time: No Attestation: On 09/12/20, the high probability of a clinically significant, sudden or life threatening deterioration of the following system(s) required my full and direct attention, intervention and personal management. The time I documented below is in addition to time spent performing reported procedures but includes the following listed in this critical care notation. Medical Decision Making - Medical Records Medical records reviewed: Yes: I reviewed the patient's medical records. - Sanchez Inquiry Pt receiving controlled substance: No Vital Signs: 09/12/20 02:32 09/12/20 02:52 09/12/20 03:30 Temperature 98.1 F Temperature Source Oral Pulse Rate [Right Brachial] 121 H 119 H 116 H Respiratory Rate 34 H 27 H 32 H Blood Pressure [Right Arm] 146/71 H 139/75 155/75 H Blood Pressure Mean [Right Arm] 96 96 101 Blood Pressure Source [Right Arm] Automatic Cuff Automatic Cuff Automatic Cuff Blood Pressure Position [Right Arm] Sitting Sitting Sitting 02 Sat by Pulse Oximetry 96 97 98 Oxygen Delivery Method Room Air Nasal Cannula Nasal Cannula Oxygen Flow Rate (LPM) 3 3 09/12/20 04:14 Temperature Temperature Source Pulse Rate [Right Brachial] 117 H Respiratory Rate 34 H Blood Pressure [Right Arm] 147/73 H Blood Pressure Mean [Right Arm] 97 Blood Pressure Source [Right Arm] Automatic Cuff Blood Pressure Position [Right Arm] Sitting 02 Sat by Pulse Oximetry 98 Oxygen Delivery Method Nasal Cannula Oxygen Flow Rate (LPM) 3 - Lab Data Lab results reviewed: Yes: I reviewed the patient's lab results. Lab Results 09/12/20 02:18: Specimen Source Left radial, O2 % 2lpm nc, ABG pH 7.40, ABG pCO2 46.5 H, ABG pO2 82.3, ABG HCO3 28.1 H, ABG Total CO2 29.5 H, ABG O2 Saturation 96, ABG Base Excess 3.3 H, Oskar Test Acceptable 09/12/20 02:25: WBC 8.4, RBC 3.51 L, Hgb 10.4 L, Hct 30.8 L, MCV 87.7, MCH 29.6, MCHC 33.8, RDW 14.8, Plt Count 214, MPV 7.9, Neut % (Auto) 79.1, Lymph % (Auto) 11.6, [place] % (Auto) 8.3, Eos % (Auto) 0.9, Baso % (Auto) 0.1, Neut # (Auto) 6.7, Lymph # (Auto) 1.0, Fre[place] # (Auto) 0.7, Eos # (Auto) 0.1, Baso # (Auto) 0.0 09/12/20 02:25: Sodium 133 L, Potassium 3.6, Chloride 95 L, Carbon Dioxide 30, Anion Gap 11.6, BUN 27 H, Creatinine 0.70, Estimated Creat Clear 44, Estimated GFR 83, Est GFR ( Amer) 100, Glucose 105 H, Calcium 8.7, Troponin I 0.01, NT-Pro-B Natriuret Pep 114 09/12/20 02:25: SARS-CoV-2 IgG Ab (Rapid) Negative, SARS-CoV-2 IgM Ab (Rapid) Negative 09/12/20 02:25: Lactate 1.2 09/12/20 02:25: Procalcitonin 0.118 09/12/20 02:25: Chlamy pneumoniae PCR Not detected, Adenovirus (PCR) Not detected, B. pertussis DNA (PCR) Not detected, Coronavirus OC43 (PCR) Not detected, Coronavirus HKU1 (PCR) Not detected, Coronavirus 229E (PCR) Not detected, SARS-CoV-2 (PCR) Detected A, Coronavirus NL63 (PCR) Not detected, Human Metapneumovir PCR Not detected, Influenza A (H1) PCR Not detected, Influ A (H1N1/09) PCR Not detected, Influenza A (H3) PCR Not detected, Influenza Type A (PCR) Not detected, Influenza Type B (PCR) Not detected, M. pneumoniae (PCR) Not detected, Parainfluenza 1 (PCR) Not detected, Parainfluenza 2 (PCR) Not detected, Parainfluenza 3 (PCR) Not detected, Parainfluenza 4 (PCR) Not detected, RSV (PCR) Not detected, Entero/Rhino (PCR) Not detected Result diagrams: 09/12/20 02:25 09/12/20 02:25 Orders (Tests/Meds): ED MEDICATIONS Generic Name Dose Route Start Last Admin Trade Name Freq PRN Reason Stop Dose Admin Sodium Chloride 10 ml 09/12/20 02:42 Sodium Chloride 0.9% 10ml Vial IV 10/12/20 02:41 NEEDED PRN to Dilute Lorazepam inj Discontinued Medications Generic Name D
[2020-09-12 04:15] LABS: Coronavirus 19, PCR Detected (NotDetected)
--- NOTE | 2020-09-12 05:17 | PC.NURSE ---
called house worker for bed. info given-covid pneumonia, copd, fidel-joann, acute status . admit to 213.
[2020-09-12 06:02] LABS: Troponin I 0.02 ng/ml (0.00-0.034)
--- NOTE | 2020-09-12 06:24 | PC.NURSE ---
PT ARRIVED TO FLOOR FROM ED AT 0624
--- NOTE | 2020-09-12 06:42 | PC.NURSE ---
pt extremely short of air and unable to state when medications were last taken
--- NOTE | 2020-09-12 07:34 | PC.WOUNDNOTE ---
Wound Location: right arm Length: 3 cm Width: Depth: Undermining Y/N: Tunneling cm: Granulation %: Slough/necrotic tissue %: Inflammation/swelling Y/N: Pain and/or tenderness Y/N: Exudate: Serosanguinous Sanguinous y Serosanguinous Seropurulent Purulent Color: Clear Britany Cloudy/milky Bogue Red y Green Yellow Brown Mcdonnell Blue y Consistency: Thick Thin Amount: None Scant Small Moderate Large Odor Y/N: n skin tear to right arm, pt states she fell a few days ago
--- NOTE | 2020-09-12 08:06 | HMH.PHAVTE ---
[facility] Pharmacy VTE Monitoring - Patient Demographics Admission date: 09/11/20 Report Date: 09/12/20 Time: 08:06 Allergies/Adverse Reactions: Patient Allergies No Known Allergies Allergy (Verified 09/12/20 06:41) Height: 1.55 m Weight: 49.895 kg Patient Problems: Current Active Problems Acute exacerbation of chronic obstructive airways disease (Acute) Pneumonia due to COVID-19 virus (Acute) - VTE Risk Labs: VTE Related Lab Results Hgb 10.4 g/dL (12.2-16.2) L 09/12/20 02:25 Hct 30.8 % (37.0-47.0) L 09/12/20 02:25 Plt Count 214 K/mm3 (142-424) 09/12/20 02:25 BUN 27 mg/dl (7-17) H 09/12/20 02:25 Creatinine 0.70 mg/dl (0.52-1.04) 09/12/20 02:25 Estimated Creat Clear 44 mL/min (50-200) 09/12/20 02:25 Was VTE Risk Assessment Performed: Yes VTE Score: 5 VTE Risk Level: Low Risk Clinical Trial Participant: No - Prophylaxis VTE Prophylaxis Ordered?: Yes Types of VTE Prophylaxis: TEDS Knee High, Pharmacological Pharmacologic Type: Enoxaparin
[2020-09-12 09:34] LABS: Troponin I < 0.01 ng/ml (0.00-0.034)
--- NOTE | 2020-09-12 10:11 | HMH.HP ---
*Admission Date: 09/11/20 <Lola Ulloa 09/12/20 10:21> *Chief complaint: Shortness of breath <Lola Ulloa 09/12/20 10:21> *History of present illness: Ms. Gonzales is a 70-year old female with a history of oxygen dependent COPD, depression with anxiety, pulmonary fibrosis, pulmonary hypertension, and tobacco addiction who presented to [facility] emergency room after experiencing progressive shortness of breath over the past 3 days. She describes some productive cough. She does deny chest pain. In the emergency room she was found to be afebrile with O2 saturations at 97 to 98% on 3 L of nasal oxygen. Lab data revealed a white blood cell count of 8400 with a hemoglobin of 10.4 and hematocrit of 30.8. ABGs revealed pH of 7.4 PCO2 of 46.5 and PO2 of 82.3 and a bicarb of 28.1. Blood chemistries: sodium at 133, potassium 3.6, BUN 27 creatinine 0.7. Lactate was 1.2. Troponin I was normal x3. Covid IgG and IgM M were both negative but PCR was detected. Patient was noted to be in a sinus tach. CTA of the chest revealed no evidence of pulmonary embolus; Pulmonary fibrosis with emphysema and diffuse bronchial thickening and small area of Peripheral consolidation in the left lower lobe and right middle lobe which may be infectious/inflammatory. She was given lorazepam 0.5 mg IV And then admitted for further evaluation treatment with Covid routine. At the time of this exam patient has recently arrived to the room. She has already eaten breakfast and enjoyed. She feels comfortable lying in bed. She is dyspneic with speaking. <Lola Ulloa 09/12/20 11:15> [facility] History Medical History: Reports:: Anxiety, Chronic Obstructive Pulmonary Disease (COPD), Depression, Home Oxygen, Hypertension, Lung Disease, Osteoporosis Denies:: Cancer, Diabetes Mellitus Type 1, Diabetes Mellitus Type 2, Internal Pacemaker, MRSA <UlloaLola 09/12/20 10:21> *Have you ever received a pneumonia vaccine?: No <ArtemioLola 09/12/20 10:21> *Have you received a flu vaccine this season?: No <Lola Ulloa 09/12/20 10:21> Other Medical History: Reports: Arthritis, Cataracts, Osteoporosis <ArtemioLola 09/12/20 10:21> Comment:: Pulmonary fibrosis and hypertension. <ArtemioLola 09/12/20 11:15> Laterality Cases: Left: Other, Bilateral: Cataract <UlloaLola 09/12/20 11:15> Other Surgeries: Yes: Other (Cataract.). No: Pacemaker <UlloaLola 09/12/20 10:21> Amputation: No <UlloaLola 09/12/20 10:21> Fractures: No <UlloaLola 09/12/20 10:21> - *Social History Smoking Status: Former smoker <UlloaLola 09/12/20 10:21> Tobacco Type: cigarettes <UlloaLola 09/12/20 10:21> # Packs/Day (cigarettes): 1 <UlloaLola 09/12/20 10:21> #Yrs smoked (if former smoker): 25 <UlloaLola 09/12/20 10:21> Alcohol Intake: never <UlloaLola 09/12/20 10:21> *Occupational Status:: disabled <UlloaLola 09/12/20 10:21> Housing: apartment <ArtemioLola 09/12/20 10:21> Household Members: none <UlloaLola 09/12/20 10:21> *Travel in the last 8 weeks: None <UlloaLola 09/12/20 10:21> - Psychiatric History Pschychiatric History:: Reports:: Anxiety, Depression <ArtemioLola 09/12/20 10:21> Family Hx:: Cancer, Diabetes, Hypertension, Alcoholism <Ulloa,Lola 09/12/20 10:21> Review of Systems - Constitutional Denies headache(s) <Lola Ulloa 09/12/20 10:21> - Eyes Denies change in vision <Lola Ulloa 09/12/20 10:21> - ENT Denies ear pain, Denies post nasal drip, Denies sore throat <Lola Ulloa 09/12/20 10:21> - *Cardiovascular Reports shortness of breath, Denies chest pain <Lola Ulloa 09/12/20 10:21> - *Respiratory Reports chest congestion, Reports cough, Reports shortness of breath <Lola Ulloa 09/12/20 10:21> - *Gastrointestinal Denies abdominal pain, Denies loose stools, Denies nausea, Denies vomiting <Lola Ulloa 09/12/20 10:21>
--- NOTE | 2020-09-12 11:59 | HMH.PULMCON ---
*Admission Date: 09/11/20 *Reason for consult:: COVID-19 pneumonia/COPD exacerbation *History of present illness: Ms. Goznales is a 70 year-old female history of chronic hypoxic respiratory failure on 3 L nasal cannula at home, COPD, hypertension, tobacco addiction was presented to the hospital with complaining of progressively worsening respiratory failure and shortness breath of the last 2 days she also complains of occasional productive cough. Patient was admitted patient also tested positive for COVID-19 and is admitted hospital pulmonary was called for further management. On further questioning patient symptoms significantly improved and she feels she is back to her baseline. [facility] History Medical History: Reports:: Anxiety, Chronic Obstructive Pulmonary Disease (COPD), Depression, Home Oxygen, Hypertension, Lung Disease, Osteoporosis Denies:: Cancer, Diabetes Mellitus Type 1, Diabetes Mellitus Type 2, Internal Pacemaker, MRSA *Have you ever received a pneumonia vaccine?: No *Have you received a flu vaccine this season?: No Other Medical History: Reports: Arthritis, Cataracts, Osteoporosis Laterality Cases: Left: Other, Bilateral: Cataract Other Surgeries: Yes: Other (Cataract.). No: Pacemaker Amputation: No Fractures: No - *Social History Smoking Status: Former smoker Tobacco Type: cigarettes # Packs/Day (cigarettes): 1 #Yrs smoked (if former smoker): 25 Alcohol Intake: never *Occupational Status:: disabled Housing: apartment Household Members: none *Travel in the last 8 weeks: None - Psychiatric History Pschychiatric History:: Reports:: Anxiety, Depression Family Hx:: Cancer, Diabetes, Hypertension, Alcoholism ROS - Cons Reports chills, Reports lack of energy - Card Reports shortness of breath, Reports shortness of breath with activity, Denies leg swelling - Resp Respiratory: Reports chest congestion, Reports cough, Reports dyspnea, Reports dyspnea on exertion, Reports excessive phlegm production - GI Gastrointestingal: Denies: abdominal pain, belching - [place] Musculoskeletal: Denies decreased muscle mass - Psych Denies behavioral changes Meds Home Medications Medication Instructions Recorded Confirmed Type Tiotropium [place] [Spiriva 1 puff INHALATION DAILY 04/08/18 09/12/20 History 18mcg/puff inhaler] Venlafaxine HCl [Venlafaxine HCl 150 mg PO DAILY 04/08/18 09/12/20 History ER] risperiDONE [Risperdal 1mg Tablet] 1 mg PO BID 04/08/18 09/12/20 History Budesonide/Formoterol Fumarate 2 puffs IH BID 10/17/19 09/12/20 History [Symbicort 160-4.5 Mcg Inhaler] Roflumilast [Daliresp] 500 mcg PO DAILY 10/17/19 09/12/20 History Albuterol Sulfate [Ventolin HFA 2 puff IH QIDP PRN 10/18/19 09/12/20 History Inhaler] Ipratropium/Albuterol Sulfate 3 ml IH QIDP PRN 10/18/19 09/12/20 History [Iprat-Albut 0.5-3(2.5) mg/3 ml] Amitriptyline HCl [Elavil 25mg 25 mg PO HS 07/06/20 09/12/20 History tablet] Metoprolol Tartrate [Lopressor 12.5 mg PO BID 07/06/20 09/12/20 History 25mg tablet] Alendronate Sodium [Alendronate 35 mg PO DAILY 07/07/20 09/12/20 History 35mg Tablet] Buspirone HCl [Buspar 10mg 5 mg PO BID 07/07/20 09/12/20 History tablet] Fluticasone Propion/Salmeterol 1 puff IH BID 07/07/20 09/12/20 History [Wixela 500-50 Inhub] Pantoprazole Sodium 40 mg PO DAILY 07/07/20 09/12/20 History Sildenafil Citrate [Revatio] 10 mg PO TID 07/07/20 09/12/20 History Allergies Allergy/AdvReac Type Severity Reaction Status Date / Time No Known Allergies Allergy Verified 09/12/20 06:41 Exam - Constitutional Constitutional:: Present: no acute distress, comfortable - HENMT Exam HENMT: Present: normocephalic, atraumatic - Neck Exam Neck:: Present: thyroid normal - Respiratory Exam Respiratory:: Present: able to speak in complete sentences, no respiratory distress Comments: Bilateral clear breath sounds. No wheezing heard. - Cardiovascular Exam Cardiac:: Pr
--- NOTE | 2020-09-12 13:27 | HMH.PHAINT ---
PATIENT DOES NOT HAVE HOME MEDICATIONS AND DOES NOT HAVE ANYONE BRINGING THEM IN. SPOKE TO STAR AT [facility]...NO SAMPLES AVAILABLE...MARAH FARFAN, AMMON, AND DEVIKA PER DR. NUÑEZ.
--- NOTE | 2020-09-12 15:06 | PC.NURSE ---
RESPIRATORY CARE NOTE: 1445- PT WAS GIVEN A SPUTUM SPECIMEN CUP AT THIS TIME; UNABLE TO PRODUCE SPUTUM SPECIMEN AT THIS TIME .
--- NOTE | 2020-09-12 19:29 | PC.NURSE ---
Patient is on 3L, satting upper 90's. Continues to breathe quickly. Neuro alert and oriented x 4. Patient has had no complaints today. Will continue to monitor.
[2020-09-13] VITALS (9 sets, daily range): BP systolic 142–171; BP diastolic 56–82; PULSE 85–131; RESP 18–48; TEMP 36.4–36.8; O2SAT 90–98; BMI 20.8
--- NOTE | 2020-09-13 04:08 | PC.NURSE ---
pt is AxOx4, remains on 3L NC with O2 sats 90-98%, respirations 19-24, but do increase with exertion, reports SOA with exertion, fine crackles heard on auscultation, HR 83-92, no complaints of chest pain, has stayed awake most of the night sitting upright in bed,
[2020-09-13 07:28] LABS: Alanine Aminotransferase 26 U/L (12-78); Albumin Level 3.7 g/dl (3.5-5.0); Albumin/Globulin Ratio 1.2 (1.1-1.8); Alkaline Phosphatase 59 U/L (38-126); Anion Gap 12.2 mEq/L (5-15); Aspartate Amino Transferase 48 U/L (14-36); Bilirubin,Total 0.3 mg/dl (0.2-1.3); Blood Urea Nitrogen 20 mg/dl (7-17); Calcium 8.2 mg/dl (8.4-10.2); Carbon Dioxide 27 mmol/L (22.0-30.0); Chloride 103 mmol/L (98-107); Creatinine Clearance Estimated 42 mL/min (50-200); Estimated Glomerular Filt Rate 122 ml/min (>60); GFR (African American) 148 ML/MIN (>60); Globulin 3.2 g/dL (1.3-3.2); Glucose 136 mg/dl (74-100); Potassium 4.2 mmoL/L (3.5-5.1); Sodium 138 mmol/L (136-145); Total Protein,Serum 6.9 g/dl (6.3-8.2)
--- NOTE | 2020-09-13 07:34 | PC.NURSE ---
2295 Lola Ulloa made aware of preliminary blood culture results at this time
--- NOTE | 2020-09-13 07:59 | XR_ITS ---
PROCEDURE: XR CHEST PORTABLE CLINICAL HISTORY: covid Cough, congestion COMPARISON: CR XR CHEST PORTABLE from 07/06/2020 CR XR CHEST PORTABLE from 07/07/2020 CR XR CHEST PORTABLE from 09/12/[address] ANGIO CHEST from 09/12/2020 FINDINGS: The cardiomediastinal silhouette and pulmonary vascularity are within normal limits. COPD. Old granulomatous disease. Chronic changes are present in the upper lobes. Previously noted opacity in the right middle lobe region is not identified on today's exam. No acute bony abnormalities. IMPRESSION: COPD with chronic changes with improvement in the consolidation/atelectatic change in the right lower lobe Dictated by: Oskar Hamilton MD 09/13/2020 16:41 Oskar Hamilton MD in [place] 09/13/2020 16:41
--- NOTE | 2020-09-13 08:32 | HMH.ACPN2 ---
<Lola Ulloa - Last Filed: 09/13/20 09:02> Internal Medicine - PN: Subj *Date: 09/13/20 *Time: 09:02 Interval history: Patient states she had a rough night. She states she could not breathe. She is currently not receiving neb treatments due to Covid regulations. These will be started today. She continues to be in respiratory trouble this a.m. O2 sats are satisfactory on 3 L of O2 per nasal cannula with 90%. She was unable to eat because of her shortness of breath. Difficulty with speaking. Exam Vital signs and Labs for Last 24 Hours: Temp Pulse Resp BP Pulse Ox 97.9 F 131 H 48 H 171/82 H 90 L 09/13/20 08:00 09/13/20 08:00 09/13/20 08:00 09/13/20 08:00 09/13/20 08:00 Laboratory Results - last 24 hr 09/12/20 08:52: Troponin I < 0.01 09/13/20 06:45: Sodium 138, Potassium 4.2, Chloride 103, Carbon Dioxide 27, Anion Gap 12.2, BUN 20 H D, Creatinine 0.50 L D, Estimated Creat Clear 42, Estimated GFR 122, Est GFR ( Amer) 148 D, Glucose 136 H, Calcium 8.2 L, Total Bilirubin 0.3, AST 48 H, ALT 26, Alkaline Phosphatase 59, Total Protein 6.9, Albumin 3.7, Globulin 3.2, Albumin/Globulin Ratio 1.2 I & O for Last 24 hours: Intake & Output 09/10/20 09/11/20 09/12/20 09/13/20 11:59 11:59 11:59 11:59 Intake Total 240 / 240 840 / 840 Output Total 350 / 350 550 / 550 Balance -110 / -110 290 / 290 Weight 110 lb Microbiology Reports for the Last 24 Hours: Microbiology 09/12/20 02:25 Blood Blood Culture - Preliminary 09/12/20 02:25 Blood Blood Culture - Preliminary 09/12/20 16:45 Sputum - Expectorated Sputum Gram Stain - Final - Constitutional mild distress - *Routine Respiratory Exam Present: other Comments: Decreased breath sounds on the right with crackles throughout. - *Routine Cardiovascular Exam Present: RRR - *Routine Abdominal Exam Present: soft, normoactive bowel sounds. Absent: tenderness - *Routine Extremities Exam Absent: edema - *Routine Neurological Exam Present: alert, oriented X3 Assessment and Plan (1) COVID-19 virus infection Status: Acute Category: Medical Code(s): U07.1 - COVID-19 (2) Acute exacerbation of chronic obstructive airways disease Status: Acute Category: Medical Code(s): J44.1 - Chronic obstructive pulmonary disease with (acute) exacerbation (3) Anemia Status: Acute Qualifiers: Anemia type: unspecified type Qualified Code(s): D64.9 - Anemia, unspecified Category: Medical Code(s): D64.9 - Anemia, unspecified (4) Depression with anxiety Status: Acute Category: Medical Code(s): F41.8 - Other specified anxiety disorders (5) Pulmonary hypertension Status: Acute Category: Medical Code(s): I27.20 - Pulmonary hypertension, unspecified - Assessment and plan all Dx Assessment and Plan for all problems:: Patient is struggling to breathe this morning. Will start duo nebs today as ordered. Laboratory data reveals normal electrolytes with a BUN of 20 and creatinine of 0.5. Liver function studies show a slightly elevated AST at 48. We will add as needed Ativan for her anxiety as well. <Oscar Koehler - Last Filed: 09/13/20 12:50> Internal Medicine - PN: Subj *Date: 09/13/20 *Time: 12:49 Exam Vital signs and Labs for Last 24 Hours: Temp Pulse Resp BP Pulse Ox 97.9 F 100 H 18 146/75 H 94 L 09/13/20 12:25 09/13/20 12:25 09/13/20 12:25 09/13/20 12:25 09/13/20 12:25 Laboratory Results - last 24 hr 09/13/20 06:45: Sodium 138, Potassium 4.2, Chloride 103, Carbon Dioxide 27, Anion Gap 12.2, BUN 20 H D, Creatinine 0.50 L D, Estimated Creat Clear 42, Estimated GFR 122, Est GFR ( Amer) 148 D, Glucose 136 H, Calcium 8.2 L, Total Bilirubin 0.3, AST 48 H, ALT 26, Alkaline Phosphatase 59, Total Protein 6.9, Albumin 3.7, Globulin 3.2, Albumin/Globulin Ratio 1.2 I & O for Last 24 hours: Intake & Output 09/11/20 09/12/20 09/13/20 09/14/20 11:5
--- NOTE | 2020-09-13 12:33 | P.PN_ITS ---
Internal Medicine - PN: Subj *Date: 09/13/20 *Time: 12:33 Interval history: No acute respiratory events overnight patient also recommends remained stable at 3 L Exam - Constitutional Constitutional:: Present: no acute distress, comfortable - HENMT Exam HENMT: Present: normocephalic, atraumatic - Neck Exam Neck:: Present: normal visual inspection - Respiratory Exam Respiratory:: Present: able to speak in complete sentences, lungs clear, normal breath sounds, normal respiratory effort - Cardiovascular Exam Cardiac:: Present: S1, S2 - GI Exam GI:: Present: soft - Skin Exam Skin: Present: warm, no rash - Neurological Exam Neurological: Present: alert, awake, normal cognition - Extremities Exam Extremities: Present: no cyanosis, no clubbing, no edema Assessment and Plan (1) COVID-19 virus infection Status: Acute Category: Medical Code(s): U07.1 - COVID-19 (2) Acute exacerbation of chronic obstructive airways disease Status: Acute Category: Medical Code(s): J44.1 - Chronic obstructive pulmonary disease with (acute) exacerbation (3) Anemia Status: Acute Qualifiers: Anemia type: unspecified type Qualified Code(s): D64.9 - Anemia, unspecified Category: Medical Code(s): D64.9 - Anemia, unspecified (4) Depression with anxiety Status: Acute Category: Medical Code(s): F41.8 - Other specified anxiety disorders (5) Pulmonary hypertension Status: Acute Category: Medical Code(s): I27.20 - Pulmonary hypertension, unspecified - Assessment and plan all Dx Assessment and Plan for all problems:: #COVID-19 pneumonia: #COPD exacerbation: 70-year-old chronic hypoxic respiratory failure on 3 L nasal cannula presents with worsening shortness of breath for the last 3 days. Admission patient found to be COVID-19 positive and was admitted for further management. CTA performed admission, no evidence of PE showed diffuse emphysematous changes with no pulmonary parenchymal infiltrates except in the right middle lobe and le ft lower lobe pleural-based small pulmonary infiltrates. Patient respiratory status remained stable since admission on 3 L nasal cannula saturating 92 to 94%. Auscultation revealed bilateral clear breath sounds with no wheezing. Patient on my examination appeared comfortable in no respiratory distress however after talking the primary team patient has an episode of distress this morning where she became tachypneic and tachycardic, patient has anxiety into issues which are definitely contributing to her respiratory status. CXR this - morning clear with no acute pulmonary infiltrates. Plan: -Continue DuoNebs every 6 scheduled and budesonide every 12 scheduled -Continue DuoNebs every 6 hours as needed -Continue remdesivir until discharge. -Continue dexamethasone until discharge, change to prednisone 40 mg daily to complete a total of 5-day course on discharge -Levofloxacin 750 mg daily for total of 5 days #Thank you for involving pulmonary discussion.. We will follow the patient in pulmonary clinic and works with full PFTs and 6-minute walk testing
--- NOTE | 2020-09-13 20:58 | PC.NURSE ---
Pt alert and oriented and able to make needs known. CB in reach. VSS. Meds given per oct. Lungs scattered and audible wheezes. 02 on @ 3 L NC. Assist x 1 with bsc.
[2020-09-14] VITALS: BP 148/81; PULSE 90; RESP 20; TEMP 36.4; O2SAT 99
[2020-09-14 04:00] VITALS: BP 144/77; PULSE 117; RESP 26; TEMP 36.8; O2SAT 95
[2020-09-14 05:48] LABS: Alanine Aminotransferase 34 U/L (12-78); Albumin Level 3.9 g/dl (3.5-5.0); Albumin/Globulin Ratio 1.3 (1.1-1.8); Alkaline Phosphatase 62 U/L (38-126); Anion Gap 14.2 mEq/L (5-15); Aspartate Amino Transferase 57 U/L (14-36); Bilirubin,Total 0.4 mg/dl (0.2-1.3); Blood Urea Nitrogen 24 mg/dl (7-17); Calcium 8.4 mg/dl (8.4-10.2); Carbon Dioxide 27 mmol/L (22.0-30.0); Chloride 101 mmol/L (98-107); Creatinine Clearance Estimated 42 mL/min (50-200); Estimated Glomerular Filt Rate 122 ml/min (>60); GFR (African American) 148 ML/MIN (>60); Globulin 2.9 g/dL (1.3-3.2); Glucose 113 mg/dl (74-100); Potassium 4.2 mmoL/L (3.5-5.1); Sodium 138 mmol/L (136-145); Total Protein,Serum 6.8 g/dl (6.3-8.2)
[2020-09-14 06:13] VITALS: BMI 21.1
--- NOTE | 2020-09-14 06:14 | PC.NURSE ---
at 0400 vitals pt found with no o2 on. pt took it off to get situated and then could not find NC, pt exerted on breathing. pt now resting in bed with RR of 20
[2020-09-14 06:26] VITALS: PULSE 117
--- NOTE | 2020-09-14 06:30 | PC.NURSE ---
shift summary pts lungs sound diminished with coarse crackles sats remained 90-97% with a rate ranging from 18-26. pts sats drop to 80-85% when she gets out of bed and walks around her room but recovers in less then 5 minutes. pt is alert but somewhat confused. pt pulled out iv and placed it in the cabinet, when asked if she remembered doing so pt denied knowing about it. pt uses bedside toilet and has clear straw colored urine.
[2020-09-14 08:00] VITALS: BP 142/70; PULSE 127; RESP 19; RESP 22; TEMP 36.3; O2SAT 94; O2SAT 95
--- NOTE | 2020-09-14 08:39 | HMH.ACPN2 ---
<Katie Huizar - Last Filed: 09/14/20 08:39> Internal Medicine - PN: Subj *Date: 09/14/20 *Time: 08:39 Interval history: Patient states she is feeling much better today. She is actually up and walking around her room with her oxygen on. The breathing treatments seemed to help. She denies any pain and states she slept and ate breakfast. Exam Vital signs and Labs for Last 24 Hours: Temp Pulse Resp BP Pulse Ox 97.4 F L 127 H 22 142/70 H 95 09/14/20 08:00 09/14/20 08:00 09/14/20 08:00 09/14/20 08:00 09/14/20 08:00 Laboratory Results - last 24 hr 09/14/20 05:20: Sodium 138, Potassium 4.2, Chloride 101, Carbon Dioxide 27, Anion Gap 14.2, BUN 24 H, Creatinine 0.50 L, Estimated Creat Clear 42, Estimated GFR 122, Est GFR ( Amer) 148, Glucose 113 H, Calcium 8.4, Total Bilirubin 0.4, AST 57 H, ALT 34 D, Alkaline Phosphatase 62, Total Protein 6.8, Albumin 3.9, Globulin 2.9, Albumin/Globulin Ratio 1.3 I & O for Last 24 hours: Intake & Output 09/11/20 09/12/20 09/13/20 09/14/20 11:59 11:59 11:59 11:59 Intake Total 240 / 240 1320 / 1320 2019 Output Total 350 / 350 550 / 550 Balance -110 / -110 770 / 770 2019 Weight 110 lb 112 lb Microbiology Reports for the Last 24 Hours: Microbiology 09/12/20 16:45 Sputum - Expectorated Sputum Gram Stain - Final 09/12/20 16:45 Sputum - Expectorated Sputum Sputum Culture - Preliminary 09/12/20 02:25 Blood Blood Culture - Preliminary 09/12/20 02:25 Blood Blood Culture - Preliminary - Constitutional no acute distress - *Routine Respiratory Exam Present: wheezes (faint) - *Routine Cardiovascular Exam Present: RRR - *Routine Abdominal Exam Present: soft, normoactive bowel sounds. Absent: tenderness - *Routine Extremities Exam Absent: cyanosis, clubbing, edema - *Routine Skin Exam Present: warm. Absent: rash - *Routine Neurological Exam Present: alert, oriented X3 Assessment and Plan (1) COVID-19 virus infection Status: Acute Category: Medical Code(s): U07.1 - COVID-19 (2) Acute exacerbation of chronic obstructive airways disease Status: Acute Category: Medical Code(s): J44.1 - Chronic obstructive pulmonary disease with (acute) exacerbation (3) Anemia Status: Acute Qualifiers: Anemia type: unspecified type Qualified Code(s): D64.9 - Anemia, unspecified Category: Medical Code(s): D64.9 - Anemia, unspecified (4) Depression with anxiety Status: Acute Category: Medical Code(s): F41.8 - Other specified anxiety disorders (5) Pulmonary hypertension Status: Acute Category: Medical Code(s): I27.20 - Pulmonary hypertension, unspecified - Assessment and plan all Dx Assessment and Plan for all problems:: Patient is improving. Will continue Covid protocol and nebs. <Oscar Koehler - Last Filed: 09/14/20 10:46> Internal Medicine - PN: Subj *Date: 09/14/20 *Time: 10:45 Exam Vital signs and Labs for Last 24 Hours: Temp Pulse Resp BP Pulse Ox 97.4 F L 127 H 22 142/70 H 95 09/14/20 08:00 09/14/20 08:00 09/14/20 08:00 09/14/20 08:00 09/14/20 08:00 Laboratory Results - last 24 hr 09/14/20 05:20: Sodium 138, Potassium 4.2, Chloride 101, Carbon Dioxide 27, Anion Gap 14.2, BUN 24 H, Creatinine 0.50 L, Estimated Creat Clear 42, Estimated GFR 122, Est GFR ( Amer) 148, Glucose 113 H, Calcium 8.4, Total Bilirubin 0.4, AST 57 H, ALT 34 D, Alkaline Phosphatase 62, Total Protein 6.8, Albumin 3.9, Globulin 2.9, Albumin/Globulin Ratio 1.3 I & O for Last 24 hours: Intake & Output 09/11/20 09/12/20 09/13/20 09/14/20 11:59 11:59 11:59 11:59 Intake Total 240 / 240 1320 / 1320 2019 Output Total 350 / 350 550 / 550 Balance -110 / -110 770 / 770 2019 Weight 110 lb 112 lb Microbiology Reports for the Last 24 Hours: Microbiology 09/12/20 02:25 Blood Blood Culture - Preliminary
--- NOTE | 2020-09-14 09:24 | HMH.PULMPN ---
Internal Medicine - PN: Subj *Date: 09/14/20 *Time: 13:14 Interval history: No acute respiratory vents overnight. Patient admits improvement in her symptoms. Exam - Constitutional Constitutional:: Present: no acute distress, comfortable - HENMT Exam HENMT: Present: normocephalic - Eye Exam Eyes:: Present: normal appearance both eyes and related structures - Neck Exam Neck:: Present: normal visual inspection, thyroid normal - Respiratory Exam Respiratory:: Present: able to speak in complete sentences, normal breath sounds, no respiratory distress, normal respiratory effort - Cardiovascular Exam Cardiac:: Present: S1, S2 - GI Exam GI:: Present: soft - Skin Exam Skin: Present: warm, no rash - Neurological Exam Neurological: Present: alert, awake, normal cognition - Extremities Exam Extremities: Present: no cyanosis, no clubbing, no edema Assessment and Plan (1) COVID-19 virus infection Status: Acute Category: Medical Code(s): U07.1 - COVID-19 (2) Acute exacerbation of chronic obstructive airways disease Status: Acute Category: Medical Code(s): J44.1 - Chronic obstructive pulmonary disease with (acute) exacerbation (3) Anemia Status: Acute Qualifiers: Anemia type: unspecified type Qualified Code(s): D64.9 - Anemia, unspecified Category: Medical Code(s): D64.9 - Anemia, unspecified (4) Depression with anxiety Status: Acute Category: Medical Code(s): F41.8 - Other specified anxiety disorders (5) Pulmonary hypertension Status: Acute Category: Medical Code(s): I27.20 - Pulmonary hypertension, unspecified - Assessment and plan all Dx Assessment and Plan for all problems:: #COVID-19 pneumonia: #COPD exacerbation: 70-year-old chronic hypoxic respiratory failure on 3 L nasal cannula presents with worsening shortness of breath for the last 3 days. Admission patient found to be COVID-19 positive and was admitted for further management. CTA performed admission, no evidence of PE showed diffuse emphysematous changes with no pulmonary parenchymal infiltrates except in the right middle lobe and left lower lobe pleural-based small pulmonary infiltrates. Blood cultures growing gram-positive cocci in chains likely Streptococcus Respiratory status remained stable since admission on 3 L nasal cannula auscultation bilateral clear breath sounds. Patient blood cultures grew Streptococcus. Sputum inappropriate sample, showing moderate gram-positive cocci in pairs and few cocci in clusters with rare yeast. Plan: - Recommend changing antibiotics to IV ceftriaxone given Streptococcus bacteremia, will also recommend repeating blood cultures -Continue DuoNebs every 6 scheduled and budesonide every 12 scheduled -Continue DuoNebs every 6 hours as needed -Continue remdesivir until discharge. -Continue dexamethasone until discharge, change to prednisone 40 mg daily to complete a total of 5-day course on discharge #Thank you for involving pulmonary discussion. We will continue to follow
--- NOTE | 2020-09-14 09:27 | SW/DCPLANNER ---
Addendum entered by Alicia Sofia 09/14/20 11:01: Verena with [facility] has stated that patient information/order has been reviewed and services will begin tomorrow for this patient. Patients son will transport this patient home this afternoon. Original Note: I have spoke with this patients son regarding discharge plans. Son stated that patient resides at home alone, him and his are involved and his niece does housekeeping for this patient. Son stated that patient currently has home O2 along with a walker at home. Son did state that he believes patient could benefit from home health services at time of discharge. Patient information/order will be faxed to [facility] for SN/PT/OT. I will follow up with Verena arciniega/ Sera once patient information/order is reviewed. Patient will discharge home today. Son will transport son once she is medically stable for discharge.
[2020-09-14 11:58] VITALS: BP 140/71; PULSE 102; RESP 20; TEMP 36.4; O2SAT 96
--- NOTE | 2020-09-14 16:22 | HMH.DCSUM ---
General - General Admission date:: 09/12/20 <Oscar Koehler - 10/03/20 12:43> 09/12/20 <Lorena Arango - 09/14/20 16:30> Discharge date: 09/14/20 <Lorena Arango - 09/14/20 16:25> HPI HPI: Ms. Gonzales was a 70-year old female with a history of oxygen dependent COPD, depression with anxiety, pulmonary fibrosis, pulmonary hypertension, and tobacco addiction who presented to [facility] emergency room after experiencing progressive shortness of breath over the prior three days. She described some productive cough. She denied chest pain. In the emergency room she was found to be afebrile with O2 saturations at 97 to 98% on 3 L of nasal oxygen. Lab data revealed a white blood cell count of 8400 with a hemoglobin of 10.4 and hematocrit of 30.8. ABGs revealed pH of 7.4 PCO2 of 46.5 and PO2 of 82.3 and a bicarb of 28.1. Blood chemistries: sodium at 133, potassium 3.6, BUN 27 creatinine 0.7. Lactate was 1.2. Troponin I was normal x3. Covid IgG and IgM M were both negative but PCR was detected. Patient was noted to be in a sinus tach. CTA of the chest revealed no evidence of pulmonary embolus, pulmonary fibrosis with emphysema and diffuse bronchial thickening and small area of peripheral consolidation in the left lower lobe and right middle lobe which may be infectious/inflammatory. She was given lorazepam 0.5 mg IV and then admitted for further evaluation and treatment with Covid routine protocol. <Lorena Arango - 09/14/20 16:25> Hospital Course Hospital Course: Upon arrival to her room from the ER she was comfortable but dyspneic with conversation on 3L O2 per nasal cannula. Pulmonology was consulted and made recommendations to continue budesonide 2 puffs twice daily, start Spiriva daily, continue DuoNebs every 6 hours as needed, continue remdesivir until discharge, continue dexamethasone until discharge, change to prednisone 40 mg daily to complete a total of 5-day course on discharge, levofloxacin 750 mg daily for total of 5 days. The following morning, she was increasingly tachypneic with increased work of breathing. Her nebulizer treatments, which had been held due to COVID restrictions, were restarted. Her CXR was stable with no acute pulmonary infiltrates. By the morning of 09/14/2020, her symptoms had improved with the reinitiation of nebulizer treatments and O2 sats were stable on 3L O2 per nasal cannula. She was felt stable for discharge home with home health referral and continuation of levofloxacin and prednisone. <Lorena Arango - 09/14/20 16:35> Objective Vital signs: Temp Pulse Resp BP Pulse Ox 97.6 F 102 H 20 140/71 96 09/14/20 11:58 09/14/20 11:58 09/14/20 11:58 09/14/20 11:58 09/14/20 11:58 <Oscar Koehler - 10/03/20 12:43> Temp Pulse Resp BP Pulse Ox 97.6 F 102 H 20 140/71 96 09/14/20 11:58 09/14/20 11:58 09/14/20 11:58 09/14/20 11:58 09/14/20 11:58 <Lorena Arango - 09/14/20 16:25> Results Labs on day of discharge: Labs from last 24 hours 09/14/20 05:20 Sodium 138 Potassium 4.2 Chloride 101 Carbon Dioxide 27 Anion Gap 14.2 BUN 24 H Creatinine 0.50 L Estimated Creat Clear 42 Estimated GFR 122 Est GFR ( Amer) 148 Glucose 113 H Calcium 8.4 Total Bilirubin 0.4 AST 57 H ALT 34 D Alkaline Phosphatase 62 Total Protein 6.8 Albumin 3.9 Globulin 2.9 Albumin/Globulin Ratio 1.3 Preliminary micro results at discharge 09/12/20 02:25 Blood Culture - Preliminary Blood Gram Positive Cocci Gram Positive Cocci#2 09/12/20 02:25 Blood Culture - Preliminary Blood Gram Positive Cocci 09/12/20 16:45 Sputum Culture - Preliminary Sputum - Expectorated Sputum <Lorena Arango - 09/14/20 16:25> DS: Diagnosis - Discharge Diagnosis (1) COVID-19 virus infection Status: Acute (2) Acute exacerbation of chronic obstructive airways disease Status: Acute (3) Anemia Status: Acute
== END 2020-09-14 13:28 | disposition home or self-care (01) | DRG 177 ==
LOC: ER 02:25 → 2ND 05:50
PROVIDERS: Admitting Provider Family Medicine; Emergency Provider Emergency Medicine; PCP Family Medicine; Visit Provider Family Medicine
DX: U07.1 COVID-19 (principal); J12.82 Pneumonia due to coronavirus disease 2019; J96.11 Chronic respiratory failure with hypoxia; Z99.81 Dependence on supplemental oxygen; I10 Essential (primary) hypertension; J84.10 Pulmonary fibrosis, unspecified; Z87.891 Personal history of nicotine dependence; I27.20 Pulmonary hypertension, unspecified; Z79.899 Other long term (current) drug therapy; Z79.51 Long term (current) use of inhaled steroids
CPT/HCPCS: 71045; 71275; 80048; 80053; 82803; 83605; 83735; 83880; 84145; 84484; 85025; 86328; 87040; 87070; 87077; 87186; 87205; 87581; 87633; 87798; 93005; 94640; 96374; 99284; Q9967; U0003

== ENCOUNTER 2020-09-16 22:39 | Inpatient (IN) | payer MEDICARE, SELFPAY ==
[2020-09-16 22:46] VITALS: BP 112/55; PULSE 131; RESP 47; TEMP 36.9; O2SAT 100; BMI 22.1
--- NOTE | 2020-09-16 22:54 | ECG_ITS ---
APPROVED REPORT Exam: Resting ECG HR:132 bpm ECG Measurements Heart Rate 132 AXES MD 120 P 79 QRSd 62 QRS 79 QT 322 T 60 QTc 477 Conclusion Sinus tachycardia Otherwise normal ECG Electronically signed by : Prabhu Eil, 09/17/2020 07:25:48
--- NOTE | 2020-09-16 22:56 | XR_ITS ---
PROCEDURE: XR CHEST PORTABLE Referring Doctor: Jorge Bedolla Patient Age:70Y CLINICAL HISTORY: shortness of air Covd positive COMPARISON: CR XR CHEST PORTABLE from 07/07/2020 CR XR CHEST PORTABLE from 09/12/[address] ANGIO CHEST from 09/12/2020 CR XR CHEST PORTABLE from 09/13/2020 FINDINGS: AP portable upright chest. Performed today Today's film is slightly onion farmer and higher contrast but with this I would note some very subtle patchy areas of hazy density towards the periphery of the left lung base as well as at the medial left lung base-this appearance is suspect for mild progression of airspace disease. Right lung base. Some subtle wispy density at right lung base may reflect some residual infiltrate/airspace disease but is unimpressive but Suspect where mainly viewing linear atelectasis extending from the right infrahilar region to the right base. . Right upper lung melendez fairly clear with only subtle chronic appearing coarsening of markings. Patient has underlying COPD and emphysematous changes bilateral Slight ill-defined appearance is CP angles today may reflect some scant pleural fluid versus subtle infiltrate. But . Chest wall unremarkable heart normal size normal pulmonary vascularity mediastinum stable. Dense calcified granuloma the at left mid lung and calcified hilar nodes again noted IMPRESSION: Left lung base-. Slight progression of subtle hazy wispy infiltrate most at left lung base since September 13. Right lung base. Area of linear atelectasis extending to the right lung base. However in addition note question very subtle hazy infiltrate here the at right base Right and left CP angle are ill-defined on today's portable chest-subtle, but may reflect small pleural fluids vs subtle airspace disease in these regions regions Dictated by: Jimmy Cooney MD 09/17/2020 14:50 Jimmy Cooney MD in OV 09/17/2020 14:50
[2020-09-16 23:02] LABS: ABG Base Excess 4.4 mmol/L (-2.4-2.3); ABG HCO3 29.7 mmhg (22.0-26.0); ABG Oxygen Saturation 100 % (90-100); ABG PH 7.37 mmol/L (7.35-7.45); ABG PO2 256.1 mmhg (80-100); ABG TCO2 31.3 mmhg (23-27)
[2020-09-16 23:03] LABS: Allen's Test Y; Oxygen 100 %; Source R/R
[2020-09-16 23:10] LABS: Basophils % 0.2 % (0.1-2.0); Eosinophils % 0.1 % (0.1-12.0); Hematocrit 31.1 % (37.0-47.0); Hemoglobin 9.8 g/dL (12.2-16.2); Lymphocytes # 0.5 K/mm3 (0.7-4.5); Lymphocytes % 4.8 % (10-50); Mean Corpuscular HGB Conc 31.5 g/dL (31.8-35.4); Mean Corpuscular Volume 92.1 fl (81-99); Monocytes # 0.5 K/mm3 (0.1-1.0); Monocytes % 4.2 % (1.7-9.3); Neutrophils # 9.7 K/mm3 (1.8-7.8); Neutrophils % 90.8 % (37.0-80.0); Platelet Count 294 K/mm3 (142-424); Red Blood Count 3.37 M/mm3 (4.20-5.40); Red Cell Distribution Width 14.2 % (11.5-17.5); White Blood Count 10.6 K/mm3 (4.8-10.8)
[2020-09-16 23:19] LABS: MANUAL DIFFERENTIAL MANUAL DIFFERENTIAL (MANUAL DIFF)
[2020-09-16 23:21] LABS: Chloride 101 mmol/L (98-107); Potassium 3.5 mmoL/L (3.5-5.1); Sodium 142 mmol/L (136-145)
[2020-09-16 23:23] LABS: Blood Urea Nitrogen 17 mg/dl (7-17); Creatinine Clearance Estimated 44 mL/min (50-200); Estimated Glomerular Filt Rate 83 ml/min (>60); GFR (African American) 100 ML/MIN (>60)
[2020-09-16 23:24] LABS: Alanine Aminotransferase 32 U/L (12-78); Albumin Level 3.4 g/dl (3.5-5.0); Alkaline Phosphatase 57 U/L (38-126); Anion Gap 9.5 mEq/L (5-15); Aspartate Amino Transferase 35 U/L (14-36); Bilirubin,Direct 0.2 mg/dl (0.0-0.4); Bilirubin,Total 0.2 mg/dl (0.2-1.3); Calcium 8.2 mg/dl (8.4-10.2); Carbon Dioxide 35 mmol/L (22.0-30.0); Glucose 176 mg/dl (74-100); Total Protein,Serum 6.5 g/dl (6.3-8.2)
--- NOTE | 2020-09-16 23:24 | HMH.EDSOB ---
ED Disposition Clinical Impression: Acute exacerbation of chronic obstructive airways disease, COVID-19 virus infection, Anxiety Disposition: Admitted as Observation Condition on Discharge: Good Referrals: PCP,No [Primary Care Provider] - - Critical Care Critical Care Time: No Attestation: On 09/16/20, the high probability of a clinically significant, sudden or life threatening deterioration of the following system(s) required my full and direct attention, intervention and personal management. The time I documented below is in addition to time spent performing reported procedures but includes the following listed in this critical care notation. Medical Decision Making - Medical Records Medical records reviewed: Yes: I reviewed the patient's medical records. - Sanchez Inquiry Pt receiving controlled substance: No Vital Signs: 09/16/20 22:46 09/16/20 23:25 09/17/20 00:08 Temperature 98.4 F Temperature Source Oral Pulse Rate [Right Brachial] 131 H 131 H 121 H Respiratory Rate 47 H 42 H 37 H Blood Pressure [Right Arm] 112/55 L 108/50 L 101/65 L Blood Pressure Mean [Right Arm] 74 69 77 Blood Pressure Source [Right Arm] Automatic Cuff Automatic Cuff Automatic Cuff Blood Pressure Position [Right Arm] Sitting Sitting Sitting 02 Sat by Pulse Oximetry 100 97 96 Oxygen Delivery Method Non-Rebreather Nasal Cannula Nasal Cannula Oxygen Flow Rate (LPM) 15 4 4 - Lab Data Lab results reviewed: Yes: I reviewed the patient's lab results. Lab Results 09/16/20 22:55: WBC 10.6, RBC 3.37 L, Hgb 9.8 L, Hct 31.1 L, MCV 92.1, MCH 29.0, MCHC 31.5 L, RDW 14.2, Plt Count 294, MPV 8.0, Neut % (Auto) 90.8 H, Lymph % (Auto) 4.8 L, [place] % (Auto) 4.2, Eos % (Auto) 0.1, Baso % (Auto) 0.2, Neut # (Auto) 9.7 H, Lymph # (Auto) 0.5 L, [place] # (Auto) 0.5, Eos # (Auto) 0.0, Baso # (Auto) 0.0, Total Counted 100, Neutrophils % (Manual) 83 H, Band Neutrophils % 8.0, Lymphocytes % (Manual) 9 L, Platelet Estimate Normal, Hypochromasia 1+, Rouleaux 1+ 09/16/20 22:55: Sodium 142, Potassium 3.5, Chloride 101, Carbon Dioxide 35 H D, Anion Gap 9.5, BUN 17 D, Creatinine 0.70 D, Estimated Creat Clear 44, Estimated GFR 83, Est GFR ( Amer) 100 D, Glucose 176 H, Calcium 8.2 L, Total Bilirubin 0.2, Direct Bilirubin 0.2, Conjugated Bilirubin 0.0, Indirect Bilirubin 0.0, Unconjugated Bilirubin 0.0, AST 35 D, ALT 32, Alkaline Phosphatase 57, Troponin I < 0.01, NT-Pro-B Natriuret Pep 2070 H, Total Protein 6.5, Albumin 3.4 L 09/16/20 22:55: Lactate 4.0 H 09/16/20 23:01: Specimen Source R/r, O2 % 100, ABG pH 7.37, ABG pCO2 52.0 H, ABG pO2 256.1 H, ABG HCO3 29.7 H, ABG Total CO2 31.3 H, ABG O2 Saturation 100, ABG Base Excess 4.4 H, Oskar Test Y Result diagrams: 09/16/20 22:55 09/16/20 22:55 Orders (Tests/Meds): ED MEDICATIONS Generic Name Dose Route Start Last Admin Trade Name Freq PRN Reason Stop Dose Admin Sodium Chloride 10 ml 09/16/20 23:26 Sodium Chloride 0.9% 10ml Vial IV 10/16/20 23:25 NEEDED PRN to Dilute Lorazepam inj Discontinued Medications Generic Name Dose Route Start Last Admin Trade Name Freq PRN Reason Stop Dose Admin Lorazepam 1 mg 09/16/20 23:26 09/16/20 23:27 Lorazepam 2mg/Ml Vial IV 09/16/20 23:27 1 mg ONCE ONE Administration ORDERS Category Date Time Status XR chest portable Stat Exams 09/16/20 22:56 Taken Troponin I Q3H Lab 09/17/20 02:00 Ordered Troponin I Q3H Lab 09/17/20 05:00 Ordered Blood Culture Stat Micro 09/16/20 22:55 Received Arterial Blood Gas Stat RT 09/16/20 22:56 Ordered - Radiology Data #1 Image(s): Chest Image Reviewed: Yes I reviewed the patient's radiology image Preliminary Findings: Abnormal (nonspecific) - ECG Data Tracing #1 Arrhythmias present: sinus tach Ischemic changes: non-specific ST-T wave changes - VALENTINA Score for Non-Stemi Age of Patient: 60-69 years old Heart Rate: 110-149 bpm Systolic Blood Pressure: 100-119 mmHg Serum
[2020-09-16 23:25] VITALS: BP 108/50; PULSE 131; RESP 42; O2SAT 97
[2020-09-16 23:27] LABS: Lymphocytes % 9 % (10-50); Neutrophils % 83 % (42-76); Total Cells Counted 100
[2020-09-16 23:28] LABS: Hypochromasia 1+; Platelet Estimate Normal; Rouleaux 1+
[2020-09-16 23:33] LABS: NT Pro Brain Natriuretic Pep. 2070 pg/mL (0-125)
[2020-09-16 23:41] LABS: Troponin I < 0.01 ng/ml (0.00-0.034)
[2020-09-17] VITALS (14 sets, daily range): BP systolic 96–143; BP diastolic 49–79; PULSE 91–132; RESP 20–38; TEMP 36.7–37.1; O2SAT 94–99; BMI 22.5
--- NOTE | 2020-09-17 00:41 | PC.NURSE ---
call placed to renetta [employer] supervisor. info given : covid, hypoxia and joann-joann.
[2020-09-17 01:28] LABS: Reflex Lactic Add Lactic Reflex
--- NOTE | 2020-09-17 01:35 | PC.NURSE ---
patient up to floor via wheelchair.
[2020-09-17 02:34] LABS: Lactic Acid Follow Up (RFLX 1) 2.4 mmol/L (0.7-2.1)
[2020-09-17 02:49] LABS: Troponin I < 0.01 ng/ml (0.00-0.034)
[2020-09-17 04:32] LABS: Reflex Lactic (2 hrs) Add Lactic Reflex
[2020-09-17 06:04] LABS: Basophils % 0.3 % (0.1-2.0); Chloride 99 mmol/L (98-107); Eosinophils # 0.1 K/mm3 (0.0-0.4); Eosinophils % 1.1 % (0.1-12.0); Lymphocytes # 1.3 K/mm3 (0.7-4.5); Mean Corpuscular HGB Conc 32.2 g/dL (31.8-35.4); Monocytes # 0.7 K/mm3 (0.1-1.0); Monocytes % 6.8 % (1.7-9.3); Neutrophils # 8.1 K/mm3 (1.8-7.8); Neutrophils % 78.9 % (37.0-80.0); Platelet Count 258 K/mm3 (142-424); Red Cell Distribution Width 14.4 % (11.5-17.5); Sodium 137 mmol/L (136-145); White Blood Count 10.3 K/mm3 (4.8-10.8)
[2020-09-17 06:07] LABS: Blood Urea Nitrogen 17 mg/dl (7-17); Calcium 7.8 mg/dl (8.4-10.2); Carbon Dioxide 37 mmol/L (22.0-30.0); Creatinine Clearance Estimated 45 mL/min (50-200); Estimated Glomerular Filt Rate 99 ml/min (>60); GFR (African American) 120 ML/MIN (>60); Magnesium 1.9 mg/dl (1.6-2.3)
[2020-09-17 06:08] LABS: Lactic Acid Follow up (RFLX 2) 0.8 mmol/L (0.7-2.1)
[2020-09-17 06:14] LABS: Hematocrit 26.1 % (37.0-47.0); Hemoglobin 8.4 g/dL (12.2-16.2)
[2020-09-17 06:19] LABS: Glucose 119 mg/dl (74-100); Troponin I < 0.01 ng/ml (0.00-0.034)
--- NOTE | 2020-09-17 06:45 | PC.NURSE ---
Pt is A&Ox4 and has c/o dyspnea with tachypnea this shift. She continues on 4LPM NC with sats > 97%. RR 32-38 when awake. Pt does states she feels better than last night . When asleep, pt RR was 26. Skin tear and bruising noted to BUE. Lungs diminished on auscultation. Sinus tach on tele. Troponins were <0.01 x3. Lactic was 0.8 on 3rd check. Call light within reach.
--- NOTE | 2020-09-17 09:03 | HMH.HP ---
*Admission Date: 09/17/20 *Chief complaint: Shortness of breath *History of present illness: Ms. Gonzales is a 70-year-old white female with a history of COPD and chronic respiratory failure was hospitalized here last week from 09/12/2020 to 09/14/2020 with an exacerbation of her COPD and was found to be Covid positive. She actually did quite well and was able to be discharged home on her baseline FiO2 of 3 L of nasal oxygen. She states that last evening she became acutely short of breath and was brought back to the emergency room by ambulance. On arrival she was on a nonrebreather mask and and her O2 saturation was 100%. She was weaned to 4 L of nasal oxygen and work-up was pursued which included a chest x-ray showing chronic changes but nothing acute. Her white blood cell count was normal. She was afebrile. Lactate was elevated at 4.0. She did seem quite anxious and was tachypneic with a respiratory rate of 35. She was supplemented for further observation. At the time my exam this morning she is feeling a little better. She is still tachypneic but overall more comfortable. O2 sats have remained in the mid 90s on 4 L of nasal oxygen. She has been tachycardic through the night. Denies chest pain. No productive cough. [facility] History Medical History: Reports:: Anxiety, Chronic Obstructive Pulmonary Disease (COPD), Depression, Home Oxygen, Hyperlipidemia, Hypertension, Lung Disease, Osteoporosis Denies:: Cancer, Diabetes Mellitus Type 1, Diabetes Mellitus Type 2, Internal Pacemaker, MRSA *Have you ever received a pneumonia vaccine?: Yes *Have you received a flu vaccine this season?: Yes Other Medical History: Reports: Arthritis, Cataracts, Osteoporosis, Other (Pulmonary hypertension) Laterality Cases: Left: Other, Bilateral: Cataract Other Surgeries: No: Pacemaker Amputation: No Fractures: No - *Social History Last grade of school completed: 11th or 12th Smoking Status: Former smoker Tobacco Type: cigarettes # Packs/Day (cigarettes): 1 #Yrs smoked (if former smoker): 50 Smoking End Date: 12/17/2019 Alcohol Intake: never *Occupational Status:: disabled Housing: apartment Household Members: none *Travel in the last 8 weeks: None - Psychiatric History Pschychiatric History:: Reports:: Anxiety, Depression Family Hx:: Cancer, Coronary Artery Disease, Diabetes, Alcoholism Review of Systems - Constitutional Reports malaise, Denies anorexia, Denies body ache(s), Denies chills - Eyes Reports blurry vision, Reports loss of vision - ENT Reports abnormal hearing, Reports difficulty swallowing, Reports sore throat - *Cardiovascular Reports shortness of breath with activity, Denies chest pain, Denies generalized swelling, Denies rapid, pounding, or irregular heartbeat - *Respiratory Reports shortness of breath, Denies chest congestion, Denies pain on inspiration - *Gastrointestinal Denies abdominal pain, Denies change in bowel habits, Denies heartburn - *Genitourinary Denies painful urination - *Musculoskeletal Reports muscle weakness, Denies joint pain - Integumentary/Breasts Denies hair loss, Denies rash - *Neurologic Reports abnormal hearing, Denies headache(s), Denies seizure-like activity - Psychiatric Denies change in appetite, Denies confusion - Endocrine Denies cold intolerance - Hematologic/Lymphatic Reports easy bruising - Allergic/Immunologic Denies lip swelling Meds Home Medications Medication Instructions Recorded Confirmed Type Tiotropium Thornton [Spiriva 1 puff INHALATION DAILY 04/08/18 09/16/20 History 18mcg/puff inhaler] Venlafaxine HCl [Venlafaxine HCl 150 mg PO DAILY 04/08/18 09/16/20 History ER] risperiDONE [Risperdal 1mg Tablet] 1 mg PO BID 04/08/18 09/16/20 History Budesonide/Formoterol Fumarate 2 puffs IH BID 10/17/19 09/16/20 History [Symbicort 160-4.5 Mcg Inhaler] Roflumilast [Daliresp] 500 mcg PO DAILY 10/17/19 09/16/20 History Albuterol Sulfate [Ventolin HFA 2 puff IH
--- NOTE | 2020-09-17 11:35 | HMH.PHAVTE ---
[facility] Pharmacy VTE Monitoring - Patient Demographics Admission date: 09/17/20 Report Date: 09/17/20 Time: 11:35 Allergies/Adverse Reactions: Patient Allergies No Known Allergies Allergy (Verified 09/12/20 06:41) Height: 1.55 m Weight: 54.068 kg Patient Problems: Current Active Problems Acute exacerbation of chronic obstructive airways disease (Acute) Sinus tachycardia (Acute) Pulmonary hypertension (Acute) Anxiety (Chronic) Depression with anxiety (Acute) COVID-19 virus infection (Acute) - VTE Risk Labs: VTE Related Lab Results Hgb 8.4 g/dL (12.2-16.2) L D 09/17/20 05:20 Hct 26.1 % (37.0-47.0) L 09/17/20 05:20 Plt Count 258 K/mm3 (142-424) 09/17/20 05:20 BUN 17 mg/dl (7-17) 09/17/20 05:20 Creatinine 0.60 mg/dl (0.52-1.04) 09/17/20 05:20 Estimated Creat Clear 45 mL/min (50-200) 09/17/20 05:20 VTE Score: 4 VTE Risk Level: Low Risk - Prophylaxis VTE Prophylaxis Ordered?: Yes Types of VTE Prophylaxis: TEDS Knee High Location of Applied Device: Bilateral Lower Extremeties
--- NOTE | 2020-09-17 12:02 | HMH.PHAINT ---
HOME MEDICATIONS RECONCILED FROM DISCHARGE LIST FROM [facility] ON 09/14/20.
--- NOTE | 2020-09-17 14:30 | PC.NURSE ---
Called and spoke with pts son and he is unable to bring pts non formulary home meds r/t be quarantined at this time.
--- NOTE | 2020-09-17 15:46 | HMH.PHAINT ---
PATIENT WILL NOT BE STARTED ON COVID ORDER SET MEDICATIONS, REMDESIVIR, OR ABX PER DR NUÑEZ.
--- NOTE | 2020-09-17 18:36 | PC.NURSE ---
Pt alert and oriented x 4. Pt is on 3.5 L NC. Pt has been sinus tach on tele. Pts work of breathing has improved at this time, but pt does get exertionally soa. CB in reach. Gets up and uses bedside commode. Audible/scattered wheezes noted. IV was partially removed from RAC and this nurse continued to take out and skin was attached to iv dsg, this nurse was able to keep skin intact and apply ss on skin edges , and they are cdi at this time. Meds given per oct.
[2020-09-18] VITALS: BP 133/75; PULSE 87; RESP 18; TEMP 36.6; O2SAT 97
[2020-09-18 04:00] VITALS: BP 140/77; PULSE 86; RESP 18; TEMP 36.4; O2SAT 96
[2020-09-18 05:00] VITALS: BMI 22.7
[2020-09-18 07:03] VITALS: PULSE 65; PULSE 72; O2SAT 94
[2020-09-18 08:00] VITALS: BP 134/74; PULSE 114; RESP 20; TEMP 36.7; O2SAT 95
--- NOTE | 2020-09-18 09:08 | HMH.ACPN2 ---
<Lola Ulloa - Last Filed: 09/18/20 09:08> Internal Medicine - PN: Subj *Date: 09/18/20 *Time: 09:08 Interval history: Patient states she is going home today. She states she is feeling much better. She denies shortness of breath and cough. She states she is eating without difficulty. Exam Vital signs and Labs for Last 24 Hours: Temp Pulse Resp BP Pulse Ox 97.6 F 72 18 140/77 94 L 09/18/20 04:00 09/18/20 07:03 09/18/20 04:00 09/18/20 04:00 09/18/20 07:03 I & O for Last 24 hours: Intake & Output 09/15/20 09/16/20 09/17/20 09/18/20 11:59 11:59 11:59 11:59 Intake Total 240 / 240 120 / 120 Balance 240 / 240 120 / 120 Weight 119 lb 3.2 oz 120 lb 8 oz - Constitutional no acute distress Comments: Sitting up in chair at bedside and has completed her breakfast. She looks most comfortable and speaks without dyspnea. - *Routine Respiratory Exam Present: diminished air movement (Posteriorly) - *Routine Cardiovascular Exam Present: RRR - *Routine Abdominal Exam Present: soft, normoactive bowel sounds. Absent: tenderness - *Routine Extremities Exam Absent: edema, calf tenderness - *Routine Neurological Exam Present: alert, oriented X3 Assessment and Plan (1) Acute exacerbation of chronic obstructive airways disease Status: Acute Category: Medical Code(s): J44.1 - Chronic obstructive pulmonary disease with (acute) exacerbation (2) COVID-19 virus infection Status: Acute Category: Medical Code(s): U07.1 - COVID-19 (3) Anxiety Status: Chronic Category: Medical Code(s): F41.9 - Anxiety disorder, unspecified (4) Depression with anxiety Status: Acute Category: Medical Code(s): F41.8 - Other specified anxiety disorders (5) Pulmonary hypertension Status: Acute Category: Medical Code(s): I27.20 - Pulmonary hypertension, unspecified (6) Sinus tachycardia Status: Acute Category: Medical Code(s): R00.0 - Tachycardia, unspecified - Assessment and plan all Dx Assessment and Plan for all problems:: Patient to be discharged home today. See discharge plan. <Oscar Koehler - Last Filed: 09/18/20 12:26> Internal Medicine - PN: Subj *Date: 09/18/20 *Time: 12:23 Exam Vital signs and Labs for Last 24 Hours: Temp Pulse Resp BP Pulse Ox 98.0 F 114 H 20 134/74 95 09/18/20 08:00 09/18/20 08:00 09/18/20 08:00 09/18/20 08:00 09/18/20 08:00 Laboratory Results - last 24 hr 09/18/20 09:30: WBC 13.5 H D, RBC 3.35 L, Hgb 9.8 L, Hct 30.9 L, MCV 92.2, MCH 29.3, MCHC 31.7 L, RDW 14.3, Plt Count 335 D, MPV 7.9, Neut % (Auto) 92.9 H, Lymph % (Auto) 4.1 L, [place] % (Auto) 2.5, Eos % (Auto) 0.2, Baso % (Auto) 0.2, Neut # (Auto) 12.6 H, Lymph # (Auto) 0.6 L, [place] # (Auto) 0.3, Eos # (Auto) 0.0, Baso # (Auto) 0.0, Total Counted 100, Neutrophils % (Manual) 89 H, Lymphocytes % (Manual) 7 L, Monocytes % (Manual) 4, Platelet Estimate Normal, RBC Morphology Normal 09/18/20 09:30: Sodium 136, Potassium 4.8 D, Chloride 96 L, Carbon Dioxide 35 H, Anion Gap 9.8, BUN 21 H, Creatinine 0.80 D, Estimated Creat Clear 46, Estimated GFR 71, Est GFR ( Amer) 86 D, Glucose 195 H, Calcium 8.8 D I & O for Last 24 hours: Intake & Output 09/16/20 09/17/20 09/18/20 09/19/20 11:59 11:59 11:59 11:59 Intake Total 240 / 240 360 / 360 Balance 240 / 240 360 / 360 Weight 119 lb 3.2 oz 120 lb 8 oz Assessment and Plan (1) Acute exacerbation of chronic obstructive airways disease Status: Acute Category: Medical Code(s): J44.1 - Chronic obstructive pulmonary disease with (acute) exacerbation (2) COVID-19 virus infection Status: Acute Category: Medical Code(s): U07.1 - COVID-19 (3) Anxiety Status: Chronic Category: Medical Code(s): F41.9 - Anxiety disorder, unspecified (4) Depression with anxiety Status: Acute Category: Medical Code(s): F41.8 - Other specified anxiety disorders (5) Pulmonary hypertensio
--- NOTE | 2020-09-18 09:20 | PC.NURSE ---
Pt is A&Ox4 and has ambulated in room and to the BR and tolerated well. Pt has denied any N/V/D, pain, or SOB this shift. Pt has continued on 3LPM NC with sats mid 90s. Lungs diminished on auscultation and audible wheezes when pt ambulates. Pt has had a shower and up to chair this am. Pt reports she has rested well over night. Skin tear to RUE. Steri-strips in place. Call light within reach
--- NOTE | 2020-09-18 09:26 | SW/DCPLANNER ---
Addendum entered by Alicia Sofia 09/18/20 11:39: Verena with [facility] has confirmed that patient information has been reviewed and services will begin for this patient. Original Note: This patient was set up at discharge last admission: 09/14/2020. Verena with [facility] did confirm that home health services did start on 09/15/20 for this patient. I have informed Verena with [facility] that patient was admitted yesterday and will discharge home today. I have informed Verena and patient information will be faxed to Verena today regarding discharge.
[2020-09-18 09:55] LABS: Basophils % 0.2 % (0.1-2.0); Eosinophils % 0.2 % (0.1-12.0); Hematocrit 30.9 % (37.0-47.0); Hemoglobin 9.8 g/dL (12.2-16.2); Lymphocytes # 0.6 K/mm3 (0.7-4.5); Lymphocytes % 4.1 % (10-50); Mean Corpuscular HGB Conc 31.7 g/dL (31.8-35.4); Mean Corpuscular Hemoglobin 29.3 pg (27.0-31.2); Mean Corpuscular Volume 92.2 fl (81-99); Mean Platelet Volume 7.9 fl (7.4-10.4); Monocytes # 0.3 K/mm3 (0.1-1.0); Monocytes % 2.5 % (1.7-9.3); Neutrophils # 12.6 K/mm3 (1.8-7.8); Neutrophils % 92.9 % (37.0-80.0); Platelet Count 335 K/mm3 (142-424); Red Blood Count 3.35 M/mm3 (4.20-5.40); Red Cell Distribution Width 14.3 % (11.5-17.5); White Blood Count 13.5 K/mm3 (4.8-10.8)
[2020-09-18 09:58] LABS: Chloride 96 mmol/L (98-107); Potassium 4.8 mmoL/L (3.5-5.1); Sodium 136 mmol/L (136-145)
[2020-09-18 10:01] LABS: Anion Gap 9.8 mEq/L (5-15); Blood Urea Nitrogen 21 mg/dl (7-17); Carbon Dioxide 35 mmol/L (22.0-30.0); Creatinine Clearance Estimated 46 mL/min (50-200); Estimated Glomerular Filt Rate 71 ml/min (>60); GFR (African American) 86 ML/MIN (>60)
[2020-09-18 10:02] LABS: Glucose 195 mg/dl (74-100)
[2020-09-18 10:10] LABS: MANUAL DIFFERENTIAL MANUAL DIFFERENTIAL (MANUAL DIFF)
[2020-09-18 11:14] LABS: Calcium 8.8 mg/dl (8.4-10.2)
[2020-09-18 11:36] LABS: Lymphocytes % 7 % (10-50); Monocytes % 4 % (2-9); Neutrophils % 89 % (42-76); Platelet Estimate Normal; RBC Morphology Normal; Total Cells Counted 100
--- NOTE | 2020-09-18 14:20 | [facility].DCSUM ---
General - General Admission date:: 09/17/20 <Oscar Koehler - 10/03/20 12:49> 09/17/20 <Katie Huizar - 09/18/20 14:23> Discharge date: 09/18/20 <Katie Huizar - 09/18/20 14:23> HPI HPI: Ms. Gonzales is a 70-year-old white female with a history of COPD and chronic respiratory failure was hospitalized here last week from 09/12/2020 to 09/14/2020 with an exacerbation of her COPD and was found to be Covid positive. She actually did quite well and was able to be discharged home on her baseline FiO2 of 3 L of nasal oxygen. She states that last evening she became acutely short of breath and was brought back to the emergency room by ambulance. On arrival she was on a nonrebreather mask and and her O2 saturation was 100%. She was weaned to 4 L of nasal oxygen and work-up was pursued which included a chest x-ray showing chronic changes but nothing acute. Her white blood cell count was normal. She was afebrile. Lactate was elevated at 4.0. She did seem quite anxious and was tachypneic with a respiratory rate of 35. She was supplemented for further observation. At the time my exam this morning she is feeling a little better. She is still tachypneic but overall more comfortable. O2 sats have remained in the mid 90s on 4 L of nasal oxygen. She has been tachycardic through the night. Denies chest pain. No productive cough. <Katie Huizar - 09/18/20 14:23> Hospital Course Hospital Course: The patient was admitted for close observation of her respiratory status. She remained tachypneic and was anxious, therefore Ativan was added as needed. Her lactate improved and normalized. Her potassium was low and was replaced. She was started on her maintenance medications. By 09/18/2020, the patient stated she was going home and felt much better. She denied any shortness of breath or cough and was eating without difficulty. Her H&H and potassium had improved and she was stable for discharge. Her anxiety seem to be a contributing component to her dyspnea, so she was discharged home on Ativan as needed. She will follow-up with Dr. Koehler. <Katie Huizar - 09/18/20 14:23> Objective Vital signs: Temp Pulse Resp BP Pulse Ox 98.0 F 114 H 20 134/74 95 09/18/20 08:00 09/18/20 08:00 09/18/20 08:00 09/18/20 08:00 09/18/20 08:00 <Oscar Koehler - 10/03/20 12:49> Temp Pulse Resp BP Pulse Ox 98.0 F 114 H 20 134/74 95 09/18/20 08:00 09/18/20 08:00 09/18/20 08:00 09/18/20 08:00 09/18/20 08:00 <Katie Huizar - 09/18/20 14:23> Narrative: - Constitutional no acute distress Comments: Sitting up in chair at bedside and has completed her breakfast. She looks most comfortable and speaks without dyspnea. - *Routine Respiratory Exam Present: diminished air movement (Posteriorly) - *Routine Cardiovascular Exam Present: RRR - *Routine Abdominal Exam Present: soft, normoactive bowel sounds. Absent: tenderness - *Routine Extremities Exam Absent: edema, calf tenderness - *Routine Neurological Exam Present: alert, oriented X3 <Katie Huizar - 09/18/20 14:23> Results Labs on day of discharge: Labs from last 24 hours 09/18/20 09/18/20 09:30 09:30 WBC 13.5 H D RBC 3.35 L Hgb 9.8 L Hct 30.9 L MCV 92.2 MCH 29.3 MCHC 31.7 L RDW 14.3 Plt Count 335 D MPV 7.9 Neut % (Auto) 92.9 H Lymph % (Auto) 4.1 L [place] % (Auto) 2.5 Eos % (Auto) 0.2 Baso % (Auto) 0.2 Neut # (Auto) 12.6 H Lymph # (Auto) 0.6 L [place] # (Auto) 0.3 Eos # (Auto) 0.0 Baso # (Auto) 0.0 Total Counted 100 Neutrophils % (Manual) 89 H Lymphocytes % (Manual) 7 L Monocytes % (Manual) 4 Platelet Estimate Normal RBC Morphology Normal Sodium 136 Potassium 4.8 D Chloride 96 L Carbon Dioxide 35 H Anion Gap 9.8 BUN 21 H Creatinine 0.80 D Estimated Creat Clear 46 Estimated GFR 71 Est GFR ( Amer) 86 D Glucose 195 H
== END 2020-09-18 12:10 | disposition home health service (06) | DRG 190 ==
LOC: ER 09-17 00:26 → 2ND 09-17 01:26
PROVIDERS: Admitting Provider Family Medicine; Emergency Provider Emergency Medicine; PCP Family Medicine; Visit Provider Family Medicine
DX: J44.1 Chronic obstructive pulmonary disease with (acute) exacerbation (principal); U07.1 COVID-19; J96.10 Chronic respiratory failure, unspecified whether with hypoxia or hypercapnia; Z99.81 Dependence on supplemental oxygen; F41.8 Other specified anxiety disorders; E78.5 Hyperlipidemia, unspecified; I27.20 Pulmonary hypertension, unspecified; E03.9 Hypothyroidism, unspecified; I10 Essential (primary) hypertension; Z87.891 Personal history of nicotine dependence; Z79.51 Long term (current) use of inhaled steroids; Z79.899 Other long term (current) drug therapy; M81.0 Age-related osteoporosis without current pathological fracture
CPT/HCPCS: 36415; 71045; 80048; 80076; 82803; 83605; 83735; 83880; 84484; 85007; 85025; 87040; 93005; 94640; 94760; 96374; 99285

== ENCOUNTER → 2020-11-15 15:36 | Outpatient (CLI) | payer MEDICARE, SELFPAY ==
[2020-11-15 15:59] LABS: Basophils % 0.4 % (0.1-2.0); Eosinophils # 0.8 K/mm3 (0.0-0.4); Eosinophils % 8.7 % (0.1-12.0); Hematocrit 29.2 % (37.0-47.0); Hemoglobin 9.2 g/dL (12.2-16.2); Lymphocytes # 1.4 K/mm3 (0.7-4.5); Lymphocytes % 14.9 % (10-50); Mean Corpuscular HGB Conc 31.7 g/dL (31.8-35.4); Mean Corpuscular Hemoglobin 28.3 pg (27.0-31.2); Mean Corpuscular Volume 89.4 fl (81-99); Mean Platelet Volume 8.8 fl (7.4-10.4); Monocytes # 0.3 K/mm3 (0.1-1.0); Monocytes % 3.6 % (1.7-9.3); Neutrophils # 6.8 K/mm3 (1.8-7.8); Neutrophils % 72.4 % (37.0-80.0); Platelet Count 224 K/mm3 (142-424); Red Blood Count 3.26 M/mm3 (4.20-5.40); Red Cell Distribution Width 14.4 % (11.5-17.5); White Blood Count 9.4 K/mm3 (4.8-10.8)
[2020-11-18 14:51] LABS: Alpha-1-Antitrypsin 208 mg/dL (101-187)
[2020-11-19 14:45] LABS: D001-IgE D pteronyssinus <0.10 kU/L (Class 0); D002-IgE D farinae <0.10 kU/L (Class 0); E001-IgE Cat Dander <0.10 kU/L (Class 0); E005-IgE Dog Dander <0.10 kU/L (Class 0); G002-IgE Bermuda Grass <0.10 kU/L (Class 0); G006-IgE Timothy Grass <0.10 kU/L (Class 0); I006-IgE Cockroach, German <0.10 kU/L (Class 0); Immunoglobulin E, Total 95 IU/mL (6-495); M001-IgE Penicillium chrysogen <0.10 kU/L (Class 0); M002-IgE Cladosporium herbarum <0.10 kU/L (Class 0); M003-IgE Aspergillus fumigatus <0.10 kU/L (Class 0); M006-IgE Alternaria alternata <0.10 kU/L (Class 0); T001-IgE Maple/Box Elder <0.10 kU/L (Class 0); T003-IgE Common Silver Birch <0.10 kU/L (Class 0); T006-IgE Cedar, Mountain <0.10 kU/L (Class 0); T007-IgE Oak, White <0.10 kU/L (Class 0); T008-IgE Elm, American <0.10 kU/L (Class 0); T010-IgE Walnut <0.10 kU/L (Class 0); T011-IgE Maple Leaf Sycamore <0.10 kU/L (Class 0); T014-IgE Cottonwood <0.10 kU/L (Class 0); T015-IgE Ash, White <0.10 kU/L (Class 0); T022-IgE Pecan, Hickory <0.10 kU/L (Class 0); T070-IgE White Mulberry <0.10 kU/L (Class 0); W001-IgE Ragweed, Short <0.10 kU/L (Class 0); W011-IgE Thistle, Russian <0.10 kU/L (Class 0); W014-IgE Pigweed, Common <0.10 kU/L (Class 0); W018-IgE Sheep Sorrel <0.10 kU/L (Class 0)
[2020-11-19 17:25] LABS: E072-IgE Mouse Urine <0.10 kU/L (Class 0)
[2020-11-23 14:03] LABS: QuantiFERON-TB Gold Plus Negative (Negative)
[2020-11-25 18:47] LABS: Strongyloides IgG Antibody NEGATIVE
== END ==
PROVIDERS: Visit Provider Internal Medicine Pulmonary Disease
DX: J45.909 Unspecified asthma, uncomplicated (principal); J44.9 Chronic obstructive pulmonary disease, unspecified; D72.19 Other eosinophilia
CPT/HCPCS: 36415; 82103; 82785; 85025; 86003; 86480; 86682

== ENCOUNTER → 2020-11-24 15:50 | Outpatient (CLI) | payer MEDICARE, SELFPAY ==
[2020-11-24 15:54] LABS: MANUAL DIFFERENTIAL MANUAL DIFFERENTIAL (MANUAL DIFF)
[2020-11-24 16:05] LABS: Basophils % 0.1 % (0.1-2.0); Eosinophils # 0.1 K/mm3 (0.0-0.4); Eosinophils % 0.5 % (0.1-12.0); Hematocrit 33.2 % (37.0-47.0); Hemoglobin 10.1 g/dL (12.2-16.2); Lymphocytes # 0.8 K/mm3 (0.7-4.5); Lymphocytes % 5.9 % (10-50); Mean Corpuscular HGB Conc 30.5 g/dL (31.8-35.4); Mean Corpuscular Hemoglobin 27.2 pg (27.0-31.2); Mean Platelet Volume 7.7 fl (7.4-10.4); Monocytes # 0.4 K/mm3 (0.1-1.0); Monocytes % 2.5 % (1.7-9.3); Neutrophils # 12.7 K/mm3 (1.8-7.8); Platelet Count 338 K/mm3 (142-424); Red Blood Count 3.73 M/mm3 (4.20-5.40); Red Cell Distribution Width 13.7 % (11.5-17.5); White Blood Count 13.9 K/mm3 (4.8-10.8)
--- NOTE | 2020-11-24 16:11 | XR_ITS ---
PROCEDURE: XR HIP RT 2-3V W/PELVIS CLINICAL INDICATION: RT HIP PAIN COMPARISON: No exams were available for comparison FINDINGS: No fracture or dislocation is evident. No significant degenerative change. No lytic or blastic change. Unremarkable soft tissues. IMPRESSION: No acute findings. Dictated by: Oskar Hamilton MD 11/24/2020 17:42 Oskar Hamilton MD in [facility] 11/24/2020 17:42
[2020-11-24 17:16] LABS: Hypochromasia 2+; Lymphocytes % 4 % (10-50); Monocytes % 2 % (2-9); Neutrophils % 94 % (42-76); Platelet Estimate Normal; Stomatocytes 1+; Total Cells Counted 100
== END ==
PROVIDERS: PCP Family Medicine; Visit Provider Family Medicine
DX: D72.10 Eosinophilia, unspecified (principal); M25.551 Pain in right hip
CPT/HCPCS: 73502; 85007; 85014; 85018; 85048; 85049